=== PATIENT | male | born 1940 | race Caucasian/White ===

== ENCOUNTER → 2020-08-23 13:39 | Outpatient (BNVA) | payer MEDICARE, SELFPAY | PROVIDERS: PCP Family Medicine; Referring Provider Family Medicine; Visit Provider Internal Medicine | DX: Z45.018 Encounter for adjustment and management of other part of cardiac pacemaker (principal); I50.32 Chronic diastolic (congestive) heart failure; I11.0 Hypertensive heart disease with heart failure; I25.10 Atherosclerotic heart disease of native coronary artery without angina pectoris; Z95.3 Presence of xenogenic heart valve | CPT/HCPCS: 99212 ==

== ENCOUNTER 2020-10-25 09:29 | Outpatient (REF) | payer MEDICARE, SELFPAY ==
[2020-10-25 10:46] LABS: Alanine Aminotransferase 14 U/L (0-40); Anion Gap 11 (12-20); Blood Urea Nitrogen 20 mg/dL (9-16); Carbon Dioxide 28 mmol/L (22-29); Chloride 105 mmol/L (96-108); Estimated Glomerular Filt Rate > 60; Potassium 4.4 mmol/L (3.3-5.1); Sodium 140 mmol/L (135-145)
[2020-10-25 12:04] LABS: Aspartate Amino Transferase 18 U/L (5-37)
== END 2020-10-25 09:30 | disposition home or self-care (01) ==
LOC: HO.10HDL 09:29
PROVIDERS: Visit Provider Family Medicine
DX: I10 Essential (primary) hypertension (principal); E78.00 Pure hypercholesterolemia, unspecified; Z79.899 Other long term (current) drug therapy
CPT/HCPCS: 36415; 80051; 82550; 82565; 83735; 84450; 84460; 84520

== ENCOUNTER → 2021-02-15 10:11 | Outpatient (REF) | payer MEDICARE, SELFPAY ==
--- NOTE | 2021-02-15 10:14 | CA_ITS ---
Transthoracic Echocardiogram Patient (Last, First, Middle): Alfredito Mojica F Gender: Male Date of : 1940 Age: 80 Procedure Date: 02/15/2021 Procedure Type: Transthoracic Echocardiogram Location: OP Height: 180.34 cm Weight: 79.38 kg BSA: 1.99 m2 Heart Rate: bpm BP: 140 / 72 mmHg Locker Room Clerk: Referring MD: Colten Rasmussen MD Symptoms: Z95.3 - Presence of xenogenic heart valve Study Quality: Fair ECG Rhythm: Sinus/V paced Conclusions: - The left ventricular systolic function is low normal. The visually estimated ejection fraction is between 50-55%. - Evidence suggests grade II (moderate) diastolic dysfunction. - A bioprosthetic aortic valve is present. The prosthetic aortic valve appears to be functioning normally. Findings Left Ventricle Normal left ventricular cavity size. The left ventricular systolic function is low normal. The visually estimated ejection fraction is between 50-55%. There is no evidence of regional wall motion abnormalities. E/E prime ratio is >15, consistent with elevated filling pressures. Evidence suggests grade II (moderate) diastolic dysfunction. There is mild septal asymmetric hypertrophy. Right Ventricle Mildly increased right ventricular cavity size. There is normal right ventricular systolic function. Atria The left atrium is mildly dilated. The right atrium is normal in size. Aortic Valve A bioprosthetic aortic valve is present. The prosthetic aortic valve appears to be functioning normally. The mean gradient is 10 mmHg. The aortic valve area is 2.02 cm2. There is no aortic valve regurgitation. Mitral Valve There is mild mitral annular calcification. There is mild mitral valve regurgitation. There is no mitral valve stenosis. Pulmonic Valve The pulmonic valve was not well visualized. There is mild pulmonic valve regurgitation. Tricuspid Valve Normal tricuspid valve structure. There is mild tricuspid valve regurgitation. Top normal RVSP. Great Vessels The aortic annulus, sinuses of valsalva, and aortic arch are normal in size. Venous The inferior vena cava is normal in size and collapses greater than 50% with inspiration. Pericardium/Pleural There is no evidence of pericardial effusion. Prior Study Comparison Changes noted compared to prior study dated: 02/10/2020. Slight decrease in LVEF. Measurements 2D Linear Measurements RVIDd: 3.31 RVIDd Index: 1.66 IVSd: 1.21 0.6-0.9/0.6-1.0 cm LVIDd: 6.07 3.9-5.3/4.2-5.9 cm LVIDd Index: 3.05 2.4-3.2/2.2-3.1 cm/m2 LVIDs: 3.92 2.0-3.6 cm LVPWd: 0.82 0.7-1.1 cm Ao Root: 3.30 2.1-3.5 cm LA Diam: 4.60 2.7-3.8/3.0-4.0 cm LAIDs Index: 2.31 1.5-2.3 cm/m2 LV Mass: 320.31 67-162/88-224 g LV Mass Index: 160.96 43-95/49-115 g/m2 LVOT Diam: 2.30 3.0+(-)1.3 cm 2D Systolic Function EF 4C: 46.90 >55% EF 2C: 53.00 >55% Mitral Valve MV Pk E: 1.19 MV PK A: 1.24 MV Decel Time: 301.00 E/A: 1.00 E'Lateral: 7.83 E'Medial: 6.09 E/E' Med: 19.50 E/E' Lat: 15.20 MR Alias Aneesh: 0.35 MR RAD: 0.50 Aortic Valve AoV Pk Aneesh: 2.22 AoV Mn Aneesh: 1.43 AoV VTI: 0.55 AoV Pk Grad: 20.00 Aov Mn Grad: 10.00 JERALD Cont.VTI: 2.02 LVOT LVOT Pk Aneesh: 1.02 LVOT Mn Aneesh: 0.70 LVOT VTI: 0.27 LVOT Pk Grad: 4.00 LVOT Mn Grad: 2.00 LVOT Diam: 2.30 LVOT Area: 4.15 Diastolic Function MV Pk E: 1.19 MV Pk A: 1.24 E/A: 1.00 E'Medial: 6.09 E/E' Med: 19.50 E' Laterial: 7.83 E/E' Lat: 15.20 Tricuspid Valve TR Pk Aneesh: 2.81 TR Pk Grad: 32.00 RA Press: 3.00 RVSP: 35.00 Great Vessels Aorta Ao Root-2D: 3.30 2.0-3.7 cm Ao Asc: 3.20 2.1-3.4 cm Ao Arch: 3.20 Updated in Other Vendor System with Status of Final Colten Rasmussen MD electronically signed on 02/16/2021 10:52:14 AM with status of Final
== END ==
LOC: HO.CARD 10:11
PROVIDERS: PCP Family Medicine; Visit Provider Internal Medicine
DX: Z95.3 Presence of xenogenic heart valve (principal)
CPT/HCPCS: 93306

== ENCOUNTER → 2021-02-22 11:04 | Outpatient (BNVA) | payer MEDICARE, SELFPAY | PROVIDERS: PCP Family Medicine; Visit Provider Internal Medicine | DX: I11.0 Hypertensive heart disease with heart failure (principal); I50.32 Chronic diastolic (congestive) heart failure; I25.10 Atherosclerotic heart disease of native coronary artery without angina pectoris; Z95.3 Presence of xenogenic heart valve; Z95.0 Presence of cardiac pacemaker; Z79.899 Other long term (current) drug therapy | CPT/HCPCS: 93005 ==

== ENCOUNTER 2021-05-04 12:02 | Outpatient (REF) | payer MEDICARE, SELFPAY ==
[2021-05-04 15:12] LABS: Alanine Aminotransferase 15 U/L (0-40); Anion Gap 14 (12-20); Aspartate Amino Transferase 20 U/L (5-37); Blood Urea Nitrogen 23 mg/dL (9-16); Carbon Dioxide 23 mmol/L (22-29); Chloride 110 mmol/L (96-108); Estimated Glomerular Filt Rate > 60; Potassium 4.5 mmol/L (3.3-5.1); Sodium 142 mmol/L (135-145)
== END 2021-05-04 12:03 | disposition home or self-care (01) ==
LOC: HO.10HDL 12:02
PROVIDERS: Absent Provider Internal Medicine; Visit Provider Family Medicine
DX: I10 Essential (primary) hypertension (principal); E78.00 Pure hypercholesterolemia, unspecified; Z79.899 Other long term (current) drug therapy
CPT/HCPCS: 36415; 80051; 82550; 82565; 84450; 84460; 84520

== ENCOUNTER 2021-07-25 07:19 | Outpatient (REF) | payer MEDICARE, SELFPAY ==
--- NOTE | ~2021-07-25 | XR_ITS ---
EXAMINATION: XR KNEE STANDING, BILATERAL XR KNEE 2 VIEWS, LEFT CLINICAL INFORMATION: Left knee pain. COMPARISON: None TECHNIQUE: AP bilateral knee. Left knee lateral and sunrise view. FINDINGS: AP BILATERAL KNEE: There is loss of medial and lateral compartment joint space of right knee with periarticular spurring. There is severe loss of medial compartment joint space with periarticular spurring and mild hallux general barium deformity of left knee. No fracture or dislocation seen. There are bilateral soft tissue hyperdensities, question vascular calcifications. LEFT KNEE: There is severe loss of patellofemoral compartment joint space in left knee with [id number] suprapatellar joint effusion. There is no visible acute fracture, dislocation or lytic process seen. No abnormal joint effusion seen. XR/XR knee LT 2V IMPRESSION: 1. Severe degenerative arthritic changes medial compartment and moderate arthritic changes in the patellofemoral compartment of left knee with moderate suprapatellar joint effusion. There is genu varus deformity of left knee. 2. Moderate degenerative changes medial and lateral compartment of right knee. 3. There is diffuse osteopenia with scattered bilateral soft tissue hyperdensity, question calcifications.
--- NOTE | ~2021-07-25 | XR_ITS ---
EXAMINATION: XR KNEE STANDING, BILATERAL XR KNEE 2 VIEWS, LEFT CLINICAL INFORMATION: Left knee pain. COMPARISON: None TECHNIQUE: AP bilateral knee. Left knee lateral and sunrise view. FINDINGS: AP BILATERAL KNEE: There is loss of medial and lateral compartment joint space of right knee with periarticular spurring. There is severe loss of medial compartment joint space with periarticular spurring and mild hallux general barium deformity of left knee. No fracture or dislocation seen. There are bilateral soft tissue hyperdensities, question vascular calcifications. LEFT KNEE: There is severe loss of patellofemoral compartment joint space in left knee with [id number] suprapatellar joint effusion. There is no visible acute fracture, dislocation or lytic process seen. No abnormal joint effusion seen. XR/XR knee standing BI IMPRESSION: 1. Severe degenerative arthritic changes medial compartment and moderate arthritic changes in the patellofemoral compartment of left knee with moderate suprapatellar joint effusion. There is genu varus deformity of left knee. 2. Moderate degenerative changes medial and lateral compartment of right knee. 3. There is diffuse osteopenia with scattered bilateral soft tissue hyperdensity, question calcifications.
== END 2021-07-25 07:20 | disposition home or self-care (01) ==
LOC: HO.HOSX 07:19
PROVIDERS: Visit Provider Physician Assistant
DX: M17.0 Bilateral primary osteoarthritis of knee (principal)
CPT/HCPCS: 20610; 73560; 73565; 99202; J1040

== ENCOUNTER → 2021-08-22 13:12 | Outpatient (BNVA) | payer MEDICARE, SELFPAY | PROVIDERS: PCP Family Medicine; Visit Provider Internal Medicine | DX: Z45.018 Encounter for adjustment and management of other part of cardiac pacemaker (principal); I11.0 Hypertensive heart disease with heart failure; I50.32 Chronic diastolic (congestive) heart failure; I25.10 Atherosclerotic heart disease of native coronary artery without angina pectoris; Z95.3 Presence of xenogenic heart valve | CPT/HCPCS: 99212 ==

== ENCOUNTER → 2021-10-21 09:32 | Outpatient (BNVA) | payer MEDICARE, SELFPAY | PROVIDERS: PCP Family Medicine; Visit Provider Physician Assistant | DX: M17.0 Bilateral primary osteoarthritis of knee (principal) | CPT/HCPCS: 20610; 99212; J1040 ==

== ENCOUNTER 2021-11-09 08:17 | Outpatient (REF) | payer MEDICARE, SELFPAY ==
[2021-11-09 10:54] LABS: Estimated Average Glucose 117 mg/dL; Hemoglobin A1c % 5.7 %
[2021-11-09 10:56] LABS: Alanine Aminotransferase 17 U/L (0-40); Blood Urea Nitrogen 24 mg/dL (9-16); Cholesterol 155 mg/dL; Estimated Glomerular Filt Rate > 60; Glucose Fasting 121 mg/dL (60-99); Triglycerides 55 mg/dL
[2021-11-09 11:09] LABS: Anion Gap 10 (12-20); Carbon Dioxide 27 mmol/L (22-29); Chloride 109 mmol/L (96-108); HDL Cholesterol 51 mg/dL; LDL Cholesterol Calculated 93 mg/dl; Potassium 4.8 mmol/L (3.3-5.1); Sodium 141 mmol/L (135-145)
== END 2021-11-09 08:18 | disposition home or self-care (01) ==
LOC: HO.10HDL 08:17
PROVIDERS: Visit Provider Family Medicine
DX: I10 Essential (primary) hypertension (principal); E78.00 Pure hypercholesterolemia, unspecified; E11.9 Type 2 diabetes mellitus without complications; Z79.899 Other long term (current) drug therapy
CPT/HCPCS: 36415; 80051; 80061; 82550; 82565; 82947; 83036; 84460; 84520

== ENCOUNTER → 2022-02-06 09:15 | Outpatient (REF) | payer MEDICARE, SELFPAY ==
--- NOTE | 2022-02-06 09:18 | CA_ITS ---
Transthoracic Echocardiogram Patient (Last, First, Middle): Alfredito Mojica F Gender: Male Date of : 1940 Age: 81 Procedure Date: 02/06/2022 Procedure Type: Transthoracic Echocardiogram Location: OP Height: 180.34 cm Weight: 82.56 kg BSA: 2.03 m2 Heart Rate: 61 bpm BP: 129 / 65 mmHg Painter Helper Sign: SB Referring MD: Colten Rasmussen MD Symptoms: Z95.3 - Presence of xenogenic heart valve Study Quality: Adequate ECG Rhythm: Paced Conclusions: - The left ventricular systolic function is normal. The visually estimated ejection fraction is between 55-60%. - Evidence suggests grade II (moderate) diastolic dysfunction. - A bioprosthetic aortic valve is present. The prosthetic aortic valve appears to be functioning normally. Findings Left Ventricle Normal left ventricular cavity size. The left ventricular systolic function is normal. The visually estimated ejection fraction is between 55-60%. E/E prime ratio is >15, consistent with elevated filling pressures. Evidence suggests grade II (moderate) diastolic dysfunction. There is mild septal asymmetric hypertrophy. Right Ventricle Mildly increased right ventricular cavity size. There is normal right ventricular systolic function. Atria Both atria are normal in size. Aortic Valve A bioprosthetic aortic valve is present. The prosthetic aortic valve appears to be functioning normally. The aortic valve was not well visualized. The mean gradient is 15 mmHg. There is no aortic valve regurgitation. Acceleration time 81-88ms. Mitral Valve There is mild mitral annular calcification. There is trace mitral valve regurgitation. There is no mitral valve stenosis. Pulmonic Valve The pulmonic valve is likely normal. Tricuspid Valve There is mild tricuspid valve regurgitation. The pulmonary artery systolic pressure is normal. Great Vessels The asc aorta is normal in size. Venous The inferior vena cava was not well visualized. Pericardium/Pleural There is no evidence of pericardial effusion. Prior Study Comparison No significant change compared to prior study dated: 02/15/2021. Measurements 2D Linear Measurements IVSd: 1.31 0.6-0.9/0.6-1.0 cm LVIDd: 4.92 3.9-5.3/4.2-5.9 cm LVIDd Index: 2.42 2.4-3.2/2.2-3.1 cm/m2 LVIDs: 3.78 2.0-3.6 cm LVPWd: 0.95 0.7-1.1 cm LA Diam: 3.80 2.7-3.8/3.0-4.0 cm LAIDs Index: 1.87 1.5-2.3 cm/m2 LV Mass: 261.74 67-162/88-224 g LV Mass Index: 128.93 43-95/49-115 g/m2 LVOT Diam: 2.60 3.0+(-)1.3 cm 2D Systolic Function EF 4C: 46.00 >55% EF 2C: 66.80 >55% EF BiP: 60.80 >55% Mitral Valve MV Pk E: 1.10 MV PK A: 1.17 MV Decel Time: 260.00 E/A: 0.90 E'Lateral: 6.74 E'Medial: 4.90 E/E' Med: 22.40 E/E' Lat: 16.30 PHT: 76.00 MVA PHT: 2.89 Decel [place]: 4.22 Aortic Valve AoV Pk Aneesh: 2.59 AoV Mn Aneesh: 1.81 AoV VTI: 0.56 AoV Pk Grad: 27.00 Aov Mn Grad: 15.00 JERALD Cont.VTI: 2.15 LVOT LVOT Pk Aneesh: 0.95 LVOT Mn Aneesh: 0.68 LVOT VTI: 0.23 LVOT Pk Grad: 4.00 LVOT Mn Grad: 2.00 LVOT Diam: 2.60 LVOT Area: 5.31 Diastolic Function MV Pk E: 1.10 MV Pk A: 1.17 E/A: 0.90 E'Medial: 4.90 E/E' Med: 22.40 E' Laterial: 6.74 E/E' Lat: 16.30 Right Ventricle TAPSE (mm): 25.40 TVS' Aneesh: 12.30 Tricuspid Valve TR Pk Aneesh: 2.50 TR Pk Grad: 25.00 RA Press: 3.00 RVSP: 28.00 Great Vessels Aorta Ao Asc: 3.30 2.1-3.4 cm Pulmonary Valve PV Pk Aneesh: 1.08 Peak PV Grad: 5.00 Updated in Other Vendor System with Status of Final Colten Rasmussen MD electronically signed on 02/06/2022 11:36:43 AM with status of Final
== END ==
LOC: HO.CARD 09:15
PROVIDERS: PCP Family Medicine; Visit Provider Internal Medicine
DX: Z95.3 Presence of xenogenic heart valve (principal)
CPT/HCPCS: 93306

== ENCOUNTER → 2022-03-14 13:28 | Outpatient (BNVA) | payer MEDICARE, SELFPAY | PROVIDERS: PCP Family Medicine; Visit Provider Physician Assistant | DX: M17.0 Bilateral primary osteoarthritis of knee (principal) | CPT/HCPCS: 20610; 99212; J1040 ==

== ENCOUNTER 2022-04-11 12:04 | Outpatient (REF) | payer MEDICARE, SELFPAY ==
[2022-04-11 13:16] LABS: Anion Gap 14 (12-20); Blood Urea Nitrogen 23 mg/dL (9-16); Carbon Dioxide 27 mmol/L (22-29); Chloride 107 mmol/L (96-108); Estimated Glomerular Filt Rate > 60; Magnesium 2.1 mg/dL (1.6-2.6); Potassium 4.4 mmol/L (3.3-5.1); Sodium 144 mmol/L (135-145)
== END 2022-04-11 12:05 | disposition home or self-care (01) ==
LOC: HO.LAB 12:04
PROVIDERS: PCP Family Medicine; Visit Provider Family Medicine
DX: I10 Essential (primary) hypertension (principal); Z79.899 Other long term (current) drug therapy
CPT/HCPCS: 36415; 80051; 82565; 83735; 84520

== ENCOUNTER → 2022-04-18 12:10 | Outpatient (BNVA) | payer MEDICARE, SELFPAY | PROVIDERS: PCP Family Medicine; Referring Provider Family Medicine; Visit Provider Internal Medicine | DX: I11.0 Hypertensive heart disease with heart failure (principal); I50.32 Chronic diastolic (congestive) heart failure; I25.10 Atherosclerotic heart disease of native coronary artery without angina pectoris; Z95.3 Presence of xenogenic heart valve; Z95.0 Presence of cardiac pacemaker; Z79.82 Long term (current) use of aspirin; Z79.899 Other long term (current) drug therapy | CPT/HCPCS: 93005; 99212 ==

== ENCOUNTER 2022-05-24 08:40 | Outpatient (REF) | payer MEDICARE, SELFPAY ==
[2022-05-24 10:30] LABS: MANUAL DIFF FLAG NO
[2022-05-24 10:37] LABS: Basophils Percent Auto 0.4 % (0-2); Eosinophils Absolute Auto 0.3 X10*3/uL (0.0-0.4); Eosinophils Percent Auto 3.7 % (0-4); Hematocrit 36.1 % (42.0-52.0); Imm Gran Abs Auto 0.02 X10*3/uL (0.00-0.03); Imm Gran Pct Auto 0.3 % (0.0-0.4); Lymphocytes Percent Auto 14.2 % (20-40); Mean Corpuscular HGB Conc 33.2 g/dl (31.0-36.0); Mean Corpuscular Hemoglobin 30.4 pg (27.0-33.0); Mean Corpuscular Volume 91.4 fL (80.0-98.0); Mean Platelet Volume 10.8 fL (9.4-12.4); Monocytes Absolute Auto 0.6 X10*3/uL (0.1-1.2); Monocytes Percent Auto 8.6 % (2-11); Neutrophils Absolute Auto 5.3 x10*3/uL (2.0-8.3); Neutrophils Percent Auto 72.8 % (45-73); Platelet Count 170 X10*3/uL (160-400); Red Blood Count 3.95 X10*6/uL (4.60-5.80); Red Cell Distribution Width 13.8 % (11.0-16.0); White Blood Count 7.2 X10*3/uL (4.8-10.8)
== END 2022-05-24 08:41 | disposition home or self-care (01) ==
LOC: HO.10HDL 08:40
PROVIDERS: Visit Provider Family Medicine
DX: R10.32 Left lower quadrant pain (principal)
CPT/HCPCS: 36415; 82378; 85025

== ENCOUNTER 2022-05-26 11:00 | Outpatient (RCR) | payer MEDICARE, SELFPAY ==
--- NOTE | 2022-04-04 14:15 | MHC.PT.EP ---
[facility] [place] Office [place] Office [place] Office [address] Jan[address] [phone] F: [phone] F: [phone] F: [phone] F: [phone] Physical Therapy Plan of Care Date of Evaluation: Date of Surgery: N/A Diagnosis: Bilateral primary osteoarthritis of knee Assessment: Pt is a pleasant and motivated 81yo M who presents to PT with pain in B knees, L>R. Xrays revealed arthritis bilaterally. He presents to PT with current impairments in pain, decreased ROM L>R, decreased knee/hip strength, soft tissue restrictions, genu varum L LE, decreased balance and impaired gait. He is limited functionally by stair navigation, prolonged standing, walking on uneven surfaces, and kneeling. His goal is to return to walking a mile and stair navigation with minimal to no pain. He is a good candidate for skilled PT in order to address current impairments to facilitate return to PLOF. He will be seen 2x/week for 4 weeks and will be reassessed at that time. Frequency and Duration: The patient will be seen 2x/week for 4 weeks Short Term Goals: Pt will be I with HEP to promote self management of symptoms Pt will improve L knee flexion by at least 5 degrees Intermediate Goals: Pt will demonstrate full ROM and strength throughout B knees Pt will tolerate ambulation on even and uneven surfaces >45 min with minimal to no pain to assist with recreational activities Pt will demonstrate improvements in function as evidenced by statistically significant improvement in LEFI outcome measure Treatment Plan: Modalities to reduce pain, spasms and effusion. Manual therapy to restore motion and function. Therapeutic exercise to improve strength and flexibility. Neuromuscular re-education for posture and balance. Therapeutic activities to return to functional activities of daily living. Electronically signed by: Lachelle Patton, PT, DPT Please sign and return to therapist. Thank you for your referral.
--- NOTE | 2022-05-26 13:54 | MHC.PT.DC ---
[facility] [place] Office [place] Office [place] Office [address] Yanna Camacho [address] [phone] F: [phone] F: [phone] F: [phone] F: [phone] Physical Therapy Discharge Report Diagnosis: Bilateral primary osteoarthritis of knee Date of Surgery: N/A Date of Evaluation: 04/04/22 Date of Discharge: 05/26/22 Treatments to Date: 5 Cancellations to Date: 3 No Shows to Date: 1 Discharge Status: Improved Function Independent with HEP Patient Elected to Stop Discharge Summary: Pt was seen for PT from 04/04/22-05/26/22. He has attended 5 PT sessions. Pt reports he has been staying active and feeling great. He reports pain has been minimal and he has been compliant with HEP. Pt has requested to be D/C from PT at this time. Reviewed HEP, stair navigation, and the difference between knee braces and to use them only with strenuous or sporting activities. Pt is being D/C from skilled PT at this time per his request. Electronically signed by: Lachelle Patton, PT, DPT. Please sign and return to therapist. Thank you for your referral.
== END 2022-05-26 13:53 | disposition home or self-care (01) ==
LOC: HO.PT 11:00
PROVIDERS: PCP Family Medicine; Visit Provider Physician Assistant
DX: M17.0 Bilateral primary osteoarthritis of knee (principal)
CPT/HCPCS: 97110; 97112; 97161

== ENCOUNTER 2022-05-31 10:52 | Outpatient (REF) | payer MEDICARE, SELFPAY ==
--- NOTE | ~2022-05-31 | CT_ITS ---
EXAMINATION: CT ABDOMEN AND PELVIS WITHOUT CONTRAST CLINICAL INFORMATION: Abdominal pain COMPARISON: Previous CT of the abdomen and pelvis February 2018 TECHNIQUE: Multidetector volumetric imaging was performed from the superior aspect of the liver through the pubic symphysis. Sagittal and coronal reformatted images were obtained on the technologist's workstation. This CT examination was performed using dose optimization techniques as appropriate, variously including the following: *Automated exposure control *Adjustment of mA and/or kV according to patient size (this includes techniques or standardized protocols for targeted exams where dose is matched to indication/reason for exam; i.e. extremities or head) *Use of iterative reconstruction technique DLP: 508 mGy-cm FINDINGS: LUNG BASES: The visualized lung bases are clear. There is a pacemaker lead, aortic valve stent graft and coronary artery calcification. LIVER, GALLBLADDER, AND BILIARY TREE: The liver is normal in size, shape, and attenuation. No focal hepatic lesion or biliary ductal dilatation is present. The gallbladder is unremarkable with no evidence of radiopaque gallstones, gallbladder wall thickening, or obvious pericholecystic inflammatory changes. PANCREAS: Unremarkable. SPLEEN: Unremarkable. ADRENAL GLANDS: Unremarkable. KIDNEYS AND URETERS: The kidneys are normal in size, shape, and attenuation. No hydronephrosis, hydroureter, or calculi seen. No perinephric stranding. BLADDER: Not optimally distended and not well evaluated. GASTROINTESTINAL TRACT: Severe diverticulosis of the colon. No evidence of diverticulitis. Small and large bowel are otherwise normal. Normal appendix. Normal stomach. ABDOMINAL WALL: Small bilateral inguinal hernias containing fat. LYMPH NODES: Prominent bilateral inguinal lymph nodes. These are similar to previous exam. There are postsurgical changes in the right inguinal region. VASCULAR: Right groin pseudoaneurysm not appreciated. Normal caliber thoracic aorta. Mild atherosclerotic disease. PELVIC VISCERA: Unremarkable. OSSEOUS STRUCTURES: There are degenerative changes of the spine and hip joints. CT/CT abdomen pelvis wo IV con IMPRESSION: Severe diverticular disease of the colon. No evidence of acute diverticulitis. Fleischner guidelines were followed.
== END 2022-05-31 10:53 | disposition home or self-care (01) ==
LOC: HO.CT 10:52
PROVIDERS: PCP Family Medicine; Visit Provider Family Medicine
DX: R10.32 Left lower quadrant pain (principal)
CPT/HCPCS: 74176

== ENCOUNTER → 2022-06-19 13:39 | Outpatient (BNVA) | payer MEDICARE, SELFPAY | PROVIDERS: PCP Family Medicine; Visit Provider Physician Assistant | DX: M17.0 Bilateral primary osteoarthritis of knee (principal) | CPT/HCPCS: 20610; 99212; J1040 ==

== ENCOUNTER → 2022-06-21 10:21 | Outpatient (REF) | payer MEDICARE, SELFPAY ==
--- NOTE | 2022-06-21 10:28 | ECG_ITS ---
Test Reason : sss-pacemaker Blood Pressure : / mmHG Vent. Rate : 061 BPM Atrial Rate : 061 BPM P-R Int : 292 ms QRS Dur : 134 ms QT Int : 450 ms P-R-T Axes : 050 -61 096 degrees QTc Int : 453 ms Sinus rhythm with sinus arrhythmia with 1st degree A-V block with occasional ventricular-paced complexes and Fusion complexes Left axis deviation Right bundle branch block Left ventricular hypertrophy with repolarization abnormality ( R in aVL ) Abnormal ECG When compared with ECG of 13-SEP-2019 13:28, Electronic ventricular pacemaker has replaced Sinus rhythm Referred By: Fred Chowdary Electronically Signed By:TEA DUKE MD
== END ==
LOC: HO.CARD 10:21
PROVIDERS: PCP Family Medicine; Visit Provider Family Medicine
DX: Z95.0 Presence of cardiac pacemaker (principal)
CPT/HCPCS: 93005

== ENCOUNTER 2022-10-09 07:46 | Outpatient (REF) | payer MEDICARE, SELFPAY ==
[2022-10-09 10:58] LABS: Anion Gap 8 (12-20); Blood Urea Nitrogen 21 mg/dL (9-16); Carbon Dioxide 27 mmol/L (22-29); Chloride 110 mmol/L (96-108); Estimated Glomerular Filt Rate > 60; Potassium 4.3 mmol/L (3.3-5.1); Sodium 141 mmol/L (135-145)
== END 2022-10-09 07:47 | disposition home or self-care (01) ==
LOC: HO.10HDL 07:46
PROVIDERS: Absent Provider Internal Medicine; Visit Provider Family Medicine
DX: I10 Essential (primary) hypertension (principal)
CPT/HCPCS: 36415; 80051; 82565; 84520

== ENCOUNTER → 2022-10-23 12:02 | Outpatient (BNVA) | payer MEDICARE, SELFPAY | PROVIDERS: PCP Family Medicine; Referring Provider Family Medicine; Visit Provider Internal Medicine | DX: I11.0 Hypertensive heart disease with heart failure (principal); I50.32 Chronic diastolic (congestive) heart failure; I25.10 Atherosclerotic heart disease of native coronary artery without angina pectoris; Z45.018 Encounter for adjustment and management of other part of cardiac pacemaker; Z95.3 Presence of xenogenic heart valve; Z79.82 Long term (current) use of aspirin; Z79.899 Other long term (current) drug therapy | CPT/HCPCS: 93280; 99212 ==

== ENCOUNTER → 2023-01-22 08:18 | Outpatient (BNVA) | payer MEDICARE, SELFPAY | PROVIDERS: PCP Family Medicine; Visit Provider Orthopaedic Surgery | DX: M17.0 Bilateral primary osteoarthritis of knee (principal); I50.32 Chronic diastolic (congestive) heart failure; I25.10 Atherosclerotic heart disease of native coronary artery without angina pectoris | CPT/HCPCS: 99212 ==

== ENCOUNTER → 2023-02-11 23:59 | Outpatient (BNV) | payer MEDICARE, SELFPAY ==
--- NOTE | 2023-02-21 14:19 | A.OFFVIS_ITS ---
Intake Intake Visit Reasons: Remote Device Check- [employer] Allergies Penicillins [PENICILLINS] Adverse Reaction (Unknown, Verified 01/22/23 08:28) GI UPSET/N/V PFSH Medical History Atherosclerotic cardiovascular disease Chronic heart failure with preserved ejection fraction Essential hypertension Normally functioning cardiac pacemaker present Pseudoaneurysm Surgical History History of cardiac catheterization (~01/30/18) History of permanent cardiac pacemaker placement (~02/2019) Status post transcatheter aortic valve replacement (TAVR) using bioprosthesis (~02/2019) Family History Father CVD (cardiovascular disease) Mother No problems noted. 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 Overall normal device function. [id number] Cardiac Device Interrogation, pacemaker Procedure code (CPT) selection complete Assessment & Plan Assessment & Plan (1) Chronic heart failure with preserved ejection fraction: Code(s): I50.32 - Chronic diastolic (congestive) heart failure (2) Status post transcatheter aortic valve replacement (TAVR) using bioprosthesis: Onset Date: ~02/2019 Code(s): Z95.3 - Presence of xenogenic heart valve (3) Encounter for interrogation of cardiac pacemaker: Code(s): Z45.018 - Encounter for adjustment and management of other part of cardiac pacemaker Coding Level of Care Code Procedure Only Diagnoses Chronic heart failure with preserved ejection fraction I50.32 Status post transcatheter aortic valve replacement (TAVR) using bioprosthesis Z95.3 Encounter for interrogation of cardiac pacemaker Z45.018 CPT Codes Cardiac Device Check - Cardiac Device 12: [id number] Cardiac Device Interrogation, pacemaker ([id number])
== END ==
PROVIDERS: PCP Family Medicine; Visit Provider Internal Medicine
DX: I48.20 Chronic atrial fibrillation, unspecified (principal); Z95.0 Presence of cardiac pacemaker
CPT/HCPCS: 93294

== ENCOUNTER 2023-02-20 08:20 | Outpatient (REF) | payer MEDICARE, SELFPAY ==
[2023-02-20 08:46] LABS: MANUAL DIFF FLAG NO
[2023-02-20 09:15] LABS: Basophils Percent Auto 0.4 % (0-2); Eosinophils Absolute Auto 0.2 X10*3/uL (0.0-0.4); Eosinophils Percent Auto 2.4 % (0-4); Hematocrit 38.1 % (42.0-52.0); Hemoglobin 12.9 g/dl (14.0-18.0); Imm Gran Abs Auto 0.03 X10*3/uL (0.00-0.03); Imm Gran Pct Auto 0.4 % (0.0-0.4); Lymphocytes Absolute Auto 1.2 X10*3/uL (1.2-4.9); Lymphocytes Percent Auto 16.7 % (20-40); Mean Corpuscular HGB Conc 33.9 g/dl (31.0-36.0); Mean Corpuscular Hemoglobin 30.1 pg (27.0-33.0); Mean Platelet Volume 10.8 fL (9.4-12.4); Monocytes Absolute Auto 0.6 X10*3/uL (0.1-1.2); Monocytes Percent Auto 8.3 % (2-11); Neutrophils Absolute Auto 5.3 x10*3/uL (2.0-8.3); Neutrophils Percent Auto 71.8 % (45-73); Platelet Count 164 X10*3/uL (160-400); Red Blood Count 4.28 X10*6/uL (4.60-5.80); Red Cell Distribution Width 13.2 % (11.0-16.0); White Blood Count 7.4 X10*3/uL (4.8-10.8)
[2023-02-20 09:56] LABS: Alanine Aminotransferase 12 U/L (0-40); Anion Gap 13 (12-20); Aspartate Amino Transferase 16 U/L (5-37); Carbon Dioxide 24 mmol/L (22-29); Chloride 109 mmol/L (96-108); Estimated Glomerular Filt Rate > 60; Magnesium 2.1 mg/dL (1.6-2.6); Potassium 4.6 mmol/L (3.3-5.1); Sodium 141 mmol/L (135-145)
== END 2023-02-20 08:21 | disposition home or self-care (01) ==
LOC: HO.LAB 08:20
PROVIDERS: PCP Family Medicine; Visit Provider Family Medicine
DX: I11.0 Hypertensive heart disease with heart failure (principal); I50.9 Heart failure, unspecified; R42 Dizziness and giddiness; E78.00 Pure hypercholesterolemia, unspecified; Z79.899 Other long term (current) drug therapy
CPT/HCPCS: 36415; 80051; 82550; 82565; 83735; 84450; 84460; 85025

== ENCOUNTER → 2023-03-20 08:48 | Outpatient (BNVA) | payer MEDICARE, SELFPAY | PROVIDERS: PCP Family Medicine; Visit Provider Orthopaedic Surgery ==

== ENCOUNTER 2023-03-20 09:51 | Outpatient (REF) | payer MEDICARE, SELFPAY ==
[2023-03-20 11:03] LABS: MANUAL DIFF FLAG NO
[2023-03-20 11:07] LABS: Basophils Percent Auto 0.4 % (0-2); Eosinophils Absolute Auto 0.2 X10*3/uL (0.0-0.4); Eosinophils Percent Auto 2.7 % (0-4); Hematocrit 38.7 % (42.0-52.0); Imm Gran Abs Auto 0.03 X10*3/uL (0.00-0.03); Imm Gran Pct Auto 0.4 % (0.0-0.4); Lymphocytes Absolute Auto 1.4 X10*3/uL (1.2-4.9); Lymphocytes Percent Auto 16.5 % (20-40); Mean Corpuscular HGB Conc 33.6 g/dl (31.0-36.0); Mean Corpuscular Volume 89.2 fL (80.0-98.0); Mean Platelet Volume 10.7 fL (9.4-12.4); Monocytes Absolute Auto 0.8 X10*3/uL (0.1-1.2); Monocytes Percent Auto 9.5 % (2-11); Neutrophils Absolute Auto 5.9 x10*3/uL (2.0-8.3); Neutrophils Percent Auto 70.5 % (45-73); Platelet Count 161 X10*3/uL (160-400); Red Blood Count 4.34 X10*6/uL (4.60-5.80); Red Cell Distribution Width 13.2 % (11.0-16.0); White Blood Count 8.4 X10*3/uL (4.8-10.8)
[2023-03-20 12:00] LABS: Anion Gap 11 (12-20); Blood Urea Nitrogen 22 mg/dL (9-16); Calcium 9.5 mg/dL (8.4-10.2); Carbon Dioxide 26 mmol/L (22-29); Chloride 109 mmol/L (96-108); Estimated Glomerular Filt Rate > 60; Glucose Random 112 mg/dL (60-115); Potassium 4.9 mmol/L (3.3-5.1); Sodium 141 mmol/L (135-145)
== END 2023-03-20 09:52 | disposition home or self-care (01) ==
LOC: HO.10HDL 09:51
PROVIDERS: Visit Provider Orthopaedic Surgery
DX: Z01.812 Encounter for preprocedural laboratory examination (principal); Z20.2 Contact with and (suspected) exposure to infections with a predominantly sexual mode of transmission
CPT/HCPCS: 36415; 80048; 85025

== ENCOUNTER 2023-03-28 10:44 | Outpatient (RCR) | payer MEDICARE, SELFPAY ==
--- NOTE | 2023-03-28 11:54 | MHC.PT.EP ---
[facility] [place] Office [place] Office [place] Office [address] Yanna Camacho [address] [facility] [phone] F: [phone] F: [phone] F: [phone] F: [phone] Physical Therapy Plan of Care Date of Evaluation: Date of Surgery: 04/14/23 Diagnosis: prehab L TKA (RL) Assessment: pt is a 82 y/o female presenting to physical therapy w/ referring diagnosis of prehab L TKA. Impairments include pain, decreased range of motion, decreased strength, impaired functional mobility, impaired postural awareness, and altered ambulation mechanics. pt is a good candidate for skilled PT due to age, potential remediation of impairments, typical disease/condition progression and prognosis, comorbidities, and motivation. pt would benefit from skilled PT intervention to provide a tailored strengthening and stretching exercise program, functional training, gait training, postural re-training, neuromuscular re-education, modalities as needed for pain, equipment safety demonstration. Frequency and Duration: The patient will be seen no follow-ups indicated Short Term Goals: GOALS MET Senior Living Goals: Treatment Plan: Modalities to reduce pain, spasms and effusion. Manual therapy to restore motion and function. Therapeutic exercise to improve strength and flexibility. Neuromuscular re-education for posture and balance. Therapeutic activities to return to functional activities of daily living. Electronically signed by: Kianna Santana PT, DPT Please sign and return to therapist. Thank you for your referral.
--- NOTE | 2023-03-28 13:43 | MHC.PT.DC ---
[facility] [place] Office [place] Office [place] Office [address] Yanna Camacho [address] [phone] F: [phone] F: [phone] F: [phone] F: [phone] Physical Therapy Discharge Report Diagnosis: prehab L TKA (RL) Date of Surgery: 04/14/23 Date of Evaluation: 03/28/23 Date of Discharge: 03/28/23 Treatments to Date: 1 Cancellations to Date: 0 No Shows to Date: 0 Discharge Status: Achieved Goals Independent with HEP Discharge Summary: The patient was educated in physical therapy expectations during his hospital stay, once discharged home, and once he is ready for outpatient therapy. He was educated in using a walker using step-to and step-through patterns, proper stair navigation, and avoiding any objects behind the knee unless specified by a therapist. He was taken through the exact TKA protocol given during admission and had no difficulties performing. Given his exceptional performance of all activities practiced/reviewed today he does not need any PT additional follow-up until after his surgery. He is discharged. Electronically signed by: Kianna Santana PT, DPT Please sign and return to therapist. Thank you for your referral.
== END 2023-03-28 13:43 | disposition home or self-care (01) ==
LOC: HO.PT 10:44
PROVIDERS: PCP Family Medicine; Visit Provider Orthopaedic Surgery
DX: M17.0 Bilateral primary osteoarthritis of knee (principal)
CPT/HCPCS: 97110; 97116; 97162

== ENCOUNTER 2023-04-02 13:21 | Outpatient (AMB) | payer MEDICARE, SELFPAY ==
--- NOTE | 2023-04-02 13:23 | A.OFFVIS_ITS ---
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: No Accompanied by: Spouse Allergies Penicillins [PENICILLINS] Adverse Reaction (Unknown, Verified 04/02/23 13:33) GI UPSET/N/V Medication List - Last Reconciled 04/02/23 by Colten Rasmussen MD amlodipine 10 mg (2 x 5 mg) PO DAILY aspirin 81 mg PO DAILY atorvastatin 10 mg PO DAILY carvedilol 25 mg PO BID clindamycin HCl 600 mg PO doxazosin 4 mg PO BEDTIME furosemide 20 mg PO DAILY lisinopril 20 mg PO BID meloxicam 15 mg PO DAILY multivitamin 1 tab PO DAILY trazodone 25 mg PO BEDTIME PRN walker Folding Front wheeled walker HPI HPI Comments History of Present Illness Details Alfredito returns for follow-up. He has a history of transcatheter aortic valve replacement in the past. Also has hypertension and chronic diastolic heart failure. Permanent pacemaker in place. From the cardiac standpoint, no issues. He states he feels fine. No angina or shortness of breath or in fact anything cardiac sounding. He needs to go for knee surgery and hence needs preoperative evaluation. Otherwise, only concern is that he has some swelling/redness/discomfort in the right cubital fossa area. Not clear what happened. Possible cellulitis. [facility] Medical History Atherosclerotic cardiovascular disease Chronic heart failure with preserved ejection fraction Essential hypertension Normally functioning cardiac pacemaker present Pseudoaneurysm Surgical History History of cardiac catheterization (~01/30/18) History of permanent cardiac pacemaker placement (~02/2019) Status post transcatheter aortic valve replacement (TAVR) using bioprosthesis (~02/2019) Family History Father CVD (cardiovascular disease) Mother No problems noted. Social History Patient Tobacco Use Status: Never used Tobacco Current occupational status: retired Current occupation: rt handed Review of Systems Const Denies weakness ENT Denies dizziness Card Denies chest pain, Denies chest pain with activity, Denies syncope, Denies rapid heart rate, Denies pedal edema, Denies edema, Denies leg edema, Denies lightheadedness, Denies palpitations, Denies dyspnea, Denies dyspnea on exertion and Denies orthopnea Resp Denies cough, Denies dyspnea and Denies dyspnea on exertion GI Denies hematochezia and Denies change in stool character Musc Denies abnormal gait, Denies muscle cramps, Denies muscle weakness, Denies numbness, Denies radiating pain into limb and Denies tingling Neuro Denies abnormal gait, Denies dizziness, Denies syncope, Denies numbness, Denies tingling and Denies weakness Endo Denies palpitations Physical Exam Vital Signs: Last Vital Signs Pulse 56 04/02/23 13:24 BP 138/76 04/02/23 13:24 BMI result Body Mass Index 25.3 Const General: comfortable and no acute distress Orientation/consciousness: patient oriented x3 HEENT Other: Unremarkable Head: Yes normal to inspection Neck Neck: Yes normal visual inspection Chest Chest palpation & inspection: normal inspection of the chest Resp Auscultation: clear to auscultation bilaterally Cardio Palpation: normal PMI Heart sounds: S1 normal heart sound present, S2 normal heart sound present, no gallops, Murmur heart sound present systolic II/ and at the right sternal border and no rubs GI Palpation (GI): Soft to palpation Back/Spine/Pelvis Other: unremarkable Skin General skin exam: no rashes or lesions noted Neuro General: patient oriented x3 Extrem General: Yes normal to inspection Psych Mental Status: mental status grossly normal Office Procedures EKG Details: EKG shows atrial sensed, ventricular paced rhythm at 56/Min. [id number], Complete Assessment & Plan Assessment & Plan (1) Preoperative cardiovascular examination: Code(s): Z01.810 - Encounter for preprocedural cardiovascular examination Plan: Intermediate cardiac risk for knee surgery. May proceed from cardiac. However, the right cubital fossa with possible cellulitis will need to be evaluated by orthopedics. Message directly sent to orthopedic surgeon/Ginger Ring. He may need antibiotics if deemed appropriate. (2) Status post transcatheter aortic valve replacement (TAVR) using bioprosthesis: Onset Date: ~02/2019 Code(s): Z95.3 - Presence of xenogenic heart valve Plan: He remains on baby aspirin. Echocardiogram from last year with normally functioning TAVR valve. Infective endocarditis prophylaxis as needed. (3) Chronic heart failure with preserved ejection fraction: Code(s): I50.32 - Chronic diastolic (congestive) heart failure Plan: Remains on low-dose diuretics. (4) Atherosclerotic cardiovascular disease: Code(s): I25.10 - Atherosclerotic heart disease of [place] coronary artery without angina pectoris Plan: Cardiac catheterization data reviewed. He had mild disease diffusely. No hemodynamically significant lesions. Continue aspirin and statins. (5) Essential hypertension: Code(s): I10 - Essential (primary) hypertension Plan: Home diary reviewed and seems fairly well controlled. Mostly, well in the normal range. (6) Normally functioning cardiac pacemaker present: Code(s): Z95.0 - Presence of cardiac pacemaker Plan: Being followed remotely. Office check with next visit. Orders: Orders CA echo transthoracic complete 6 Months Z95.3 - Presence of xenogenic heart valve Coding Level of Care Code Est Pt Level 4 (63797) Diagnoses Preoperative cardiovascular examination Z01.810 Status post transcatheter aortic valve replacement (TAVR) using bioprosthesis Z95.3 Chronic heart failure with preserved ejection fraction I50.32 Atherosclerotic cardiovascular disease I25.10 Essential hypertension I10 Normally functioning cardiac pacemaker present Z95.0 CPT Codes EKG - CPT: [id number], Complete ([id number])
[2023-04-02 13:24] VITALS: BP 138/76; PULSE 56; BMI 25.3
== END 2023-04-02 15:39 | disposition home or self-care (01) ==
PROVIDERS: PCP Family Medicine; Referring Provider Family Medicine; Visit Provider Internal Medicine
DX: I50.32 Chronic diastolic (congestive) heart failure (principal); Z01.810 Encounter for preprocedural cardiovascular examination; Z95.3 Presence of xenogenic heart valve; I25.10 Atherosclerotic heart disease of native coronary artery without angina pectoris; I10 Essential (primary) hypertension; Z95.0 Presence of cardiac pacemaker
CPT/HCPCS: 93010; 99214

== ENCOUNTER → 2023-04-02 13:21 | Outpatient (BNVA) | payer MEDICARE, SELFPAY ==
--- NOTE | 2023-04-03 19:10 | CONS_ITS ---
DATE OF SERVICE: 04/02/2023 REFERRING PHYSICIAN: Fred Chowdary MD HISTORY OF PRESENT ILLNESS: This is an 82-year-old white male, well known to me who is scheduled to have a left total knee replacement by Dr. Mcnally on April 17. He was seen earlier by his public relations manager, Dr. Rasmussen and in terms of cardiac clearance, he has had that done. He has now been feeling well and his main issue has been his left knee, which is causing him a great deal of discomfort. PAST MEDICAL HISTORY: Patient has a long history of hypertension (well controlled) and hyperlipidemia. He also has BPH, GERD, venous insufficiency, mild intention tremors and of course osteoarthritis primarily in his knees. He has also been noted to have in the past a right bundle branch block, PACs and PVCs. In 2012, patient had a normal ejection fraction with mild aortic stenosis. This is followed for a number of years and by 2017, the aortic stenosis got in terms of clinically significant and in the summer of 2018, he had a transcatheter aortic valve replacement, which has done fine so far. Shortly after that, he also developed sick sinus syndrome for which he has a pacemaker in (see cardiac notes). Since that time from a cardiac standpoint, he has done fairly well. In 2019, he had what was thought to be a TIA. He had a brief episode of nausea and vertigo. Workup was unremarkable though he did have moderate amount of stenosis in the right vertebral artery, which is possibly an issue in this case. Many years ago, he was thought to have a borderline diabetes, but has not proven to be significant. When he had his valve replacement, prior to that also had a cardiac catheterization, which revealed fairly unremarkable coronary arteries. He does have some diastolic CHF and has battled lower extremity edema for a number of years now, but has been well controlled lately. He has a right footdrop for which he uses an AFO. MEDICATIONS: Include Lasix 20 mg twice a day, lisinopril 20 twice a day, amlodipine 10 mg total, carvedilol 25 mg b.i.d., atorvastatin 10 mg, doxazosin 4 mg at bedtime and baby aspirin. The rest of his p.r.n. medications. In general, however, the patient has been feeling quite well and is in no recent significant cardiovascular symptoms and this has been well delineated in his cardiac evaluation on the same day as he saw me on April [address] Rasmussen. His recent 2D echo revealed a preserved ejection fraction, normal functioning TAVR. Patient came to see me on the for his right upper arm, which he had little bit of discoloration for the last 24 hours and some swelling. We also did a complete preoperative clearance at the same time. Otherwise, his only complaint has been the right upper arm, which a day or 2 ago noticed some discoloration in the right upper medial aspect of his humeral area associated with some mild swelling. He had no history of trauma, it did not hurt him. He did not have any other symptoms, he felt quite well. His public relations manager was concerned about possible cellulitis, although the patient has no symptoms associated with it and even as he came to see me today, he said it was actually feeling a lot better with the swelling going down. Examination revealed this was a clear evidence of some kind of spontaneous hematoma, which is resolving and the etiology is not clear, but it is of little clinical significance. Patient was reassured. Otherwise, the patient has been feeling quite well. His recent blood pressures have all been in the normal range. REVIEW OF SYSTEMS: The patient has had no chest pain, trouble breathing, worsening edema (mild lately), palpitations, dizziness, or vertigo. No bowel changes. He rarely has heartburn and he has p.r.n. medications. Again on careful review, he has had no recent history of vertigo. From a urinary standpoint, he has reasonably good flow without any signs of urinary obstructive symptoms. He has long history of some mild insomnia, but his sleep has not been too bad and has no recent falls, despite the fact that he has significant arthritis in both of his knees, the left being worse. He has meloxicam that he uses for his arthritis and he uses it only occasionally, may be 1 or 2 pills per week. Otherwise, patient has no other significant symptoms. PHYSICAL EXAMINATION: GENERAL: We find a pleasant elderly white male, in no distress. VITAL SIGNS: His blood pressure today 142/62, in the public relations manager office it was 138/76. Temperature normal. Weight and height are pretty unchanged. HEENT: Conjunctivae pink. Sclerae white. Mucous membranes are moist. NECK: Veins are flat. Carotids are 2+, 2- without any bruits. LUNGS: Totally clear. HEART: Reveals normal sinus rhythm about 65. He has a 1 to 2/6 systolic murmur associated with his TAVR. ABDOMEN: Soft and nontender. No masses or organomegaly. EXTREMITIES: He has no evidence of peripheral vascular disease. He does have venous insufficiency with mild edema on the right, not so much on the left. He does have right footdrop and wears an AFO and that has been reasonably good. NEUROLOGIC: His complete neurologic examination is within normal limits. Although, he has had some intention tremors in the past, he does not reveal any of this today. As far as the right arm goes, there is clear evidence of mild and spontaneous hematoma, which is resolving and I do not think this is clinically significant. DIAGNOSTIC DATA: He had EKG in the public relations manager office and it was fairly unremarkable. His recent lab 2 weeks ago reveals normal electrolytes. BUN 22, creatinine 1.05. His random blood sugar 112. Calcium is 9.5. White count 8400, hematocrit 38.7 which is actually little higher than it has been (he normally runs between 36.5 and 38). IMPRESSION: 1. Hypertension. 2. Right arm hematoma, resolving. 3. Sick sinus syndrome with pacemaker. 4. Status post transcatheter aortic valve replacement. 5. Gastroesophageal reflux disease. 6. High cholesterol. 7. Venous insufficiency. 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 9. BPH. 10. History of insomnia. 11. Osteoarthritis mostly of the knees. PLAN: From a medical standpoint, the patient appears to be very stable and he is cleared and okay to have his left knee done. His cardiovascular status is stable as noted by his public relations manager. He was advised on the hematoma and I will follow him postoperatively. MD TIFFANIE Spencer/FRANCISCO / [id number] MTDD
== END ==
PROVIDERS: PCP Family Medicine; Referring Provider Family Medicine; Visit Provider Internal Medicine
DX: Z01.810 Encounter for preprocedural cardiovascular examination (principal); I11.0 Hypertensive heart disease with heart failure; I50.32 Chronic diastolic (congestive) heart failure; I25.10 Atherosclerotic heart disease of native coronary artery without angina pectoris; Z95.3 Presence of xenogenic heart valve; Z95.0 Presence of cardiac pacemaker
CPT/HCPCS: 93005; 99212

== ENCOUNTER 2023-04-12 09:22 | Outpatient (REF) | payer MEDICARE, SELFPAY ==
--- NOTE | ~2023-04-12 | XR_ITS ---
EXAMINATION: XR KNEE AP STANDING CLINICAL INFORMATION: Pain COMPARISON: Knee standing radiograph from 07/25/2021 TECHNIQUE: AP bilateral standing view of the knees was obtained. FINDINGS: No acute visible fracture or dislocation. Multicompartment degenerative arthropathy of the bilateral knees greatest along the right lateral femorotibial compartment and medial left femorotibial compartment. Chondrocalcinosis noted along the bilateral tibial plateau. Subchondral cystic changes noted along the left tibial plateau. Joint spaces and alignment are otherwise maintained. Soft tissues are unremarkable. XR/XR knee standing BI IMPRESSION: 1. No acute visible fracture or dislocation. 2. Multicompartment degenerative arthropathy of the bilateral knees greatest along the right lateral femorotibial compartment and medial left femorotibial compartment.
--- NOTE | ~2023-04-12 | XR_ITS ---
EXAMINATION: XR KNEE, LEFT CLINICAL INFORMATION: Pain. COMPARISON: Radiographs dated 07/25/2021. TECHNIQUE: Lateral and axial views of the left knee are submitted. FINDINGS: There is bony demineralization. There is moderately severe narrowing of the patellofemoral compartment. A moderate joint effusion is seen. No fracture or dislocation is seen. There is no foreign body. XR/XR knee LT 2V IMPRESSION: 1. There is moderately severe osteoarthritic change of the patellofemoral compartment. 2. There is a moderate left knee joint effusion.
== END 2023-04-12 09:23 | disposition home or self-care (01) ==
LOC: HO.HOSX 09:22
PROVIDERS: PCP Family Medicine; Visit Provider Physician Assistant
DX: M17.12 Unilateral primary osteoarthritis, left knee (principal)
CPT/HCPCS: 73560; 73565

== ENCOUNTER 2023-04-12 09:22 | Outpatient (AMB) | payer MEDICARE, SELFPAY ==
--- NOTE | 2023-04-12 09:27 | MHC.OFFVIS ---
Intake Vital Signs 04/12/23 09:32 Height 5 ft 11 in Weight 181 lb BMI 25.2 Intake Visit Reasons: Preop LT TKA 04/17/23 NE Intake Note: Alfredito an 82 year old female who presents today for a pre-operative left TKA on 04/17/23. Pain management agreement reviewed and signed. Allergies Penicillins [PENICILLINS] Adverse Reaction (Severe, Verified 04/12/23 09:33) GI upset / nausea & vomiting Medication List - Last Reconciled 04/12/23 by Leila Norman PA-C amlodipine 10 mg PO DAILY aspirin 81 mg PO DAILY atorvastatin 10 mg PO DAILY carvedilol 25 mg PO BID clindamycin HCl 600 mg PO ONCE doxazosin 4 mg PO BEDTIME furosemide 20 mg PO DAILY lisinopril 20 mg PO BID meloxicam 15 mg PO DAILY PRN multivitamin 1 tab PO DAILY trazodone 25 mg PO BEDTIME PRN walker Folding Front wheeled walker HPI HPI Comments History of Present Illness Details Mr Mojica presents to the office today for preop visit. He is scheduled for left total knee arthroplasty with Dr. Mcnally. He continues to have ongoing pain and difficulty with ambulation in the left knee, which is affecting his quality of life; therefore, he has elected to move forward with surgery. [facility] Medical History Atherosclerotic cardiovascular disease Basal cell carcinoma Bruises easily Chronic heart failure with preserved ejection fraction Diverticulitis Essential hypertension GERD (gastroesophageal reflux disease) Normally functioning cardiac pacemaker present Osteoarthritis Pseudoaneurysm TIA (transient ischemic attack) Surgical History H/O colonoscopy History of cardiac catheterization (~01/30/18) History of esophagogastroduodenoscopy (EGD) History of permanent cardiac pacemaker placement (~02/2019) History of surgery Hx of tonsillectomy Status post transcatheter aortic valve replacement (TAVR) using bioprosthesis (~02/2019) Family History Father CVD (cardiovascular disease) Mother No problems noted. Social History Are you a primary dog day care attendant to a significant other at home: No Do you presently have visiting nurse or other home services: No Patient Tobacco Use Status: Never used Tobacco Current occupational status: retired Current occupation: rt handed Review of Systems Const All systems reviewed & are unremarkable except as noted in HPI and below Physical Exam Vital Signs: BMI result Body Mass Index 25.2 Const General: cooperative and no acute distress Orientation/consciousness: patient oriented x3 HEENT Head: Yes normal to inspection, Yes normocephalic and Yes atraumatic Eyes General: appearance normal, both eyes and all related structures Neck Neck: Yes normal visual inspection and Yes no lymphadenopathy Resp Effort & Inspection: normal respiratory effort and able to speak in complete sentences Cardio Rate: regular rate Peripheral pulses: Peripheral pulses 2+ throughout GI Inspection: Yes normal to inspection Palpation (GI): Soft to palpation Skin General skin exam: no rashes or lesions noted Neuro General: patient oriented x3 Extrem Other: Left knee: Skin intact. There is no abrasion, laceration or rash. ROM is 0-95 degrees. Calf supple, nontender. NVI. Psych Appearance: grossly normal Mental Status: mental status grossly normal Results Reviewed Results Reviewed: Xrays were obtained in the office today and personally reviewed by me of the left knee show severe tricompartmental oa with collapse. Assessment & Plan Assessment & Plan (1) Osteoarthritis of left knee: Code(s): M17.12 - Unilateral primary osteoarthritis, left knee Plan I discussed in detail the procedure and what to expect pre and post operatively. We discussed the risks, benefits and alternatives to the surgery as well as the rehabilitation course. The risks; which include, but are not limited to infection, bleeding, nerve injury, ongoing pain, swelling, and stiffness, perioperative risk of injury to bones and soft tissues, and blood clots. I?ve answered all questions and with their understanding they have consented to move forward with Left total knee arthroplasty with Dr. Mcnally He does have a pacemaker, takes ASA 81 mg tabs He was advised by anesthesia he will have General anesthesia due to cardiac history Orders: Orders XR knee LT 2V Today M25.562 - Pain in left knee XR knee standing BI Today M25.561 - Pain in right knee, M25.562 - Pain in left knee Medications: Discontinued amlodipine 10 mg (2 x 5 mg) PO DAILY 180 tabs 3RF I10 - Essential (primary) hypertension Patient Instructions: Scribed for Ta-Jessica Meuse, PA-C, by Marc Gutierrez medical education specialist, on 04/12/2023 at 9:30 AM Leila RUIZ PA-C, have personally reviewed and agree with the information entered by the scribe. Coding Level of Care Code Est Pt Level 3 (55827) Diagnoses Osteoarthritis of left knee M17.12
[2023-04-12 09:32] VITALS: BMI 25.2
== END 2023-04-12 10:46 | disposition home or self-care (01) ==
PROVIDERS: PCP Family Medicine; Visit Provider Physician Assistant
DX: M17.12 Unilateral primary osteoarthritis, left knee (principal)
CPT/HCPCS: 99024

== ENCOUNTER 2023-04-17 07:43 | Day surgery (SDC) | payer MEDICARE, SELFPAY ==
[2023-04-06 12:24] VITALS: BP 135/63; PULSE 52; RESP 20; O2SAT 98; BMI 25.2
--- NOTE | 2023-04-06 12:46 | HO.ANESPROP2 ---
Documented by User: Cathy Jose NP 04/06/23 13:13 HPI - Anesthesia Eval Consult details Narrative: 82yo M for Left Knee Replacement Total Cardiac optimized Medically optimized No recent illness No CP/SOB with minimal activity. Limited to knee pain s/p TAVR 2018. 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 No SOB/orthopnea Case reviewed with Dr Montemayor. Rec's General anesthesia RE: s/p TAVR PMFSH Active Problems Active Problems: All Active Problems (Updated 04/06/23 @ 12:20 by Yany Cortes RN) Encounter for interrogation of cardiac pacemaker (Acute) Osteoarthritis of knees, bilateral (Acute) Osteoarthritis of left knee (Acute) Preoperative cardiovascular examination (Acute) Essential hypertension (Acute) Atherosclerotic cardiovascular disease (Acute) Chronic heart failure with preserved ejection fraction (Acute) Status post transcatheter aortic valve replacement (TAVR) using bioprosthesis (Acute ~02/2019) Past Medical History Medical History Atherosclerotic cardiovascular disease Basal cell carcinoma Bruises easily Chronic heart failure with preserved ejection fraction Diverticulitis Essential hypertension GERD (gastroesophageal reflux disease) Normally functioning cardiac pacemaker present Osteoarthritis Pseudoaneurysm TIA (transient ischemic attack) Family History Family History Father CVD (cardiovascular disease) Mother No problems noted. Family history of problems with anesthesia: No Surgical History Surgical History H/O colonoscopy History of cardiac catheterization (~01/30/18) History of esophagogastroduodenoscopy (EGD) History of permanent cardiac pacemaker placement (~02/2019) History of surgery Hx of tonsillectomy Status post transcatheter aortic valve replacement (TAVR) using bioprosthesis (~02/2019) History of Problems with Anesthesia: No Social History Social History Are you a primary personal care worker to a significant other at home: No Do you presently have visiting nurse or other home services: No Patient Tobacco Use Status: Never used Tobacco Use of substances other than those prescribed or required for medical reasons: No Have you been hit, kicked, punched, or otherwise hurt by someone within the past year? If so, by whom?: No Are you DNR?: Yes Advance Directives Information Provided: Yes (will bring copies DOS) Advance Directives on File: No Recently lost weight without trying: No Eating poorly because of decreased appetite: No Nutrition Risks: Surgical patient >75years Poor oral hygiene: No (partial upper) Current occupational status: retired Current occupation: rt handed Meds Allergies Allergy/AdvReac Type Severity Reaction Status Date / Time Penicillins [PENICILLINS] AdvReac Severe GI upset / Verified 04/17/23 08:48 nausea & vomiting Home Medications Medication Instructions Recorded Confirmed Last Taken Type aspirin 81 mg tablet,delayed 81 mg PO DAILY 08/23/20 04/12/23 04/16/23 History release atorvastatin 10 mg tablet 10 mg PO DAILY 08/23/20 04/12/23 04/16/23 History doxazosin 4 mg tablet 4 mg PO BEDTIME 08/23/20 04/12/23 04/16/23 History lisinopril 20 mg tablet 20 mg PO BID 08/23/20 04/12/23 04/16/23 History multivitamin 1 tab PO DAILY 08/23/20 04/12/23 04/16/23 History trazodone 50 mg tablet 25 mg PO BEDTIME PRN Insomnia 08/23/20 04/12/23 Unknown History meloxicam 15 mg tablet 15 mg PO DAILY PRN Pain 07/25/21 04/12/23 04/10/23 History furosemide 20 mg tablet 20 mg PO DAILY 08/22/21 04/12/23 04/16/23 History clindamycin HCl 300 mg capsule 600 mg PO ONCE 10/23/22 04/12/23 Unknown History amlodipine 5 mg tablet 10 mg PO DAILY 04/06/23 04/12/23 04/17/23 04:45 History Exam Exam Date and Time: April 06, 2023 124 Height,Weight and Vital Signs: Height 5 ft 11 in Weight 82.1 kg Last Vital Signs Pulse 52 04/06/23 12:24 Resp 20 04/06/23 12:24 BP 135/63 04/06/23 12:24 Pulse Ox 98 04/06/23 12:24 O2 Del Method Room Air 04/06/23 12:24 Pertinent Lab Results Pertinent Lab Results: Laboratory Tests 03/20/23 03/20/23 09:55 09:55 WBC 8.4 Hgb 13.0 L Hct 38.7 L Plt Count 161 Sodium 141 Potassium 4.9 Chloride 109 H Carbon Dioxide 26 BUN 22 H Creatinine 1.05 Narrative Narrative: EKG 03/2023 atrial sensed, ventricular paced rhythm at 56/Min. Cardiac Device Check Details: Date of service- 02/11/2023?; Battery life >10 years; normal lead parameters; AP 6.3%; BOILER CONTROL TECHNICIAN 98.5%; very brief NSVT, otherwise no significant arrhythmias.? Overall normal device function. Airway Mallampati Class: II TM Dist: >3cm Neck ROM: Full Partial: Upper Loose/Missing/Broken Teeth: Yes (missing lower molars, crowned lower molars) Heart: darrick, regular Assessment and Plan Assessment Anesthesia Assessment: Anesthesia Plan Discussed and PAT Visit Final Anesthetic Review Family History of Problems with Anesthesia: No History of Problems with Anesthesia: No Documented by User: Johnny Montemayor MD 04/17/23 09:50 [facility] Past Medical History Medical History Atherosclerotic cardiovascular disease Basal cell carcinoma Bruises easily Chronic heart failure with preserved ejection fraction Diverticulitis Essential hypertension GERD (gastroesophageal reflux disease) Normally functioning cardiac pacemaker present Osteoarthritis Pseudoaneurysm TIA (transient ischemic attack) Family History Family History Father CVD (cardiovascular disease) Mother No problems noted. Surgical History Surgical History H/O colonoscopy History of cardiac catheterization (~01/30/18) History of esophagogastroduodenoscopy (EGD) History of permanent cardiac pacemaker placement (~02/2019) History of surgery Hx of tonsillectomy Status post transcatheter aortic valve replacement (TAVR) using bioprosthesis (~02/2019) Social History Social History Are you a primary personal care worker to a significant other at home: No Do you presently have visiting nurse or other home services: No Patient Tobacco Use Status: Never used Tobacco Use of substances other than those prescribed or required for medical reasons: No Have you been hit, kicked, punched, or otherwise hurt by someone within the past year? If so, by whom?: No Are you DNR?: Yes Advance Directives Information Provided: Yes (will bring copies DOS) Advance Directives on File: No Recently lost weight without trying: No Eating poorly because of decreased appetite: No Nutrition Risks: Surgical patient >75years Poor oral hygiene: No (partial upper) Current occupational status: retired Current occupation: rt handed Meds Allergies Allergy/AdvReac Type Severity Reaction Status Date / Time Penicillins [PENICILLINS] AdvReac Severe GI upset / Verified 04/17/23 08:48 nausea & vomiting Home Medications Medication Instructions Recorded Confirmed Last Taken Type aspirin 81 mg tablet,delayed 81 mg PO DAILY 08/23/20 04/12/23 04/16/23 History release atorvastatin 10 mg tablet 10 mg PO DAILY 08/23/20 04/12/23 04/16/23 History doxazosin 4 mg tablet 4 mg PO BEDTIME 08/23/20 04/12/23 04/16/23 History lisinopril 20 mg tablet 20 mg PO BID 08/23/20 04/12/23 04/16/23 History multivitamin 1 tab PO DAILY 08/23/20 04/12/23 04/16/23 History trazodone 50 mg tablet 25 mg PO BEDTIME PRN Insomnia 08/23/20 04/12/23 Unknown History meloxicam 15 mg tablet 15 mg PO DAILY PRN Pain 07/25/21 04/12/23 04/10/23 History furosemide 20 mg tablet 20 mg PO DAILY 08/22/21 04/12/23 04/16/23 History clindamycin HCl 300 mg capsule 600 mg PO ONCE 10/23/22 04/12/23 Unknown History amlodipine 5 mg tablet 10 mg PO DAILY 04/06/23 04/12/23 04/17/23 04:45 History Exam Airway Lungs: cta b/l Assessment and Plan Final Anesthetic Review NPO: Yes ASA Class: III Final Preanesthetic Review: No Changes in Pt Med Stat, Meds/Allgs Chart Reviewed, Consent Obtained/Reviewed and Anes Risks/Benef Reviewed Patient Risk: Intermediate Procedure Risk: Intermediate Assessment/Block/Sedation in SS: Assess/Block/Sedation-SS Anesthetic Plan Anesthetic Plan: GA, Spinal, Regional Block and Agree w/ Assess. and Plan Disposition: Standard PACU
[2023-04-06 15:44] LABS: MRSA Nasal PCR NEGATIVE (Negative); SA Nasal PCR NEGATIVE (Negative)
[2023-04-17] VITALS (16 sets, daily range): BP systolic 94–154; BP diastolic 49–80; PULSE 49–74; RESP 16–20; TEMP 36.3–37.2; O2SAT 94–100; BMI 27.7
--- NOTE | ~2023-04-17 | XR_ITS ---
EXAMINATION: XR KNEE, LEFT CLINICAL INFORMATION: Status post total knee arthroplasty. COMPARISON: 04/12/2023 TECHNIQUE: Two views of the left knee. FINDINGS: Status post total knee arthroplasty. Small joint effusion is present. Alignment is normal at the patellofemoral and tibiofemoral compartments. Anterior skin bruna in place. Postoperative soft tissue gas of the anterior thigh and knee. No abnormal lucency or fracture around the hardware. XR/XR knee LT 2V IMPRESSION: Normal alignment, status post left total knee arthroplasty. No periprosthetic fracture.
[2023-04-17] MEDS: Lactated Ringers 1,000 ML 50 ML IVCONT (08:40)
[2023-04-17] MEDS: vancomycin HCL 1,500 MG in 0.9 % Sodium Chloride 500 ML 333.33 MG IV (08:40)
--- NOTE | 2023-04-17 09:15 | MHC.SHP ---
Pre-Procedural Eval Section A Date of Service: 04/17/23 The patient is an INPATIENT: No Changes since office visit: No Cold of Flu in the past 2 weeks, No New Medical Problems, No Changes in Medication and No Patient answered all questions The History & Physical has been completed within 30 days and I have reviewed it.: Yes Section B Chief Complaint: Unilateral primary osteoarthritis, left knee Allergies: Allergies Allergy/AdvReac Type Severity Reaction Status Date / Time Penicillins [PENICILLINS] AdvReac Severe GI upset / Verified 04/17/23 08:48 nausea & vomiting Plan I have reviewed the history and physical and performed a pertinent physical examination on my patient. No changes have occurred unless specified. Time Spent With Patient Time: Total time managing care of this patient today ____ minutes.
[2023-04-17 09:33] LABS: Hemoglobin 12.8 g/dl (14.0-18.0)
--- NOTE | 2023-04-17 12:53 | PHA.MEDREC ---
Pharmacy Consult ? Medication Reconciliation Medication reconciliation completed by RN, reviewed by pharmacy Ray.
--- NOTE | 2023-04-17 13:00 | P.BOP_ITS ---
Brief Operative Note Date of Service: 04/17/23 Pre-op diagnosis: Left knee OA Post-op diagnosis: same Procedure: Left TKA Implants: [place] Triathlon posterior stabilized cemented 11/15/12ps/32a Surgeon: Mike Mcnally MD Anesthesia: GETA Was an Security Public Safety Officer used for this Procedure?: Yes Security Public Safety Officer: Leila Norman Estimated blood loss (mL): 50 Tourniquet time (min): 60 IV fluids (mL): 1,000 Pathology: other Condition: stable Disposition: PACU
[2023-04-17] MEDS: Acetaminophen 325 MG TABLET 650 MG PO (13:13)
[2023-04-17] MEDS: oxyCODONE HCl Immed Release 5 MG TABLET PO (13:14)
[2023-04-17] MEDS: HYDROmorphone HCl 0.5 MG/0.5 ML SYRINGE IVPUSH (14:20)
[2023-04-17] MEDS: Lactated Ringers 1,000 ML 100 ML IVCONT ×2 (14:59→23:20)
[2023-04-17] MEDS: 0.9 % Sodium Chloride Flush 3 ML SYRINGE IVFLUSH (15:08)
[2023-04-17] MEDS: HYDROmorphone HCl 0.5 MG/0.5 ML SYRINGE 0.25 MG IVPUSH ×2 (15:43→21:42)
--- NOTE | 2023-04-17 15:45 | W.PM.OPN ---
Operative Note Operative Note Date of Service: 04/17/23 Narrative: Date of Service: 04/17/23 Pre-op diagnosis: Left knee OA Post-op diagnosis: same Procedure: Left TKA Implants: [place] Triathlon posterior stabilized cemented 11/15/12ps/32a Surgeon: Mike Mcnlaly MD Anesthesia: GETA Was an Photocopy Operator used for this Procedure?: Yes Photocopy Operator: Leila Norman Estimated blood loss (mL): 50 Tourniquet time (min): 60 IV fluids (mL): 1,000 Pathology: other Condition: stable Disposition: PACU Procedure in detail: The patient was brought to the operating room and prepped and draped in standard sterile fashion. A time-out was called to identify proper site proper procedure proper surgeon and IV antibiotics were administered. 1 g of IV tranexamic acid was administered. I began by making a midline incision to the retinaculum and performed a medial parapatellar arthrotomy. The patella was translated laterally and the knee was flexed up. There was tricompartmental eburnation. I performed a small medial peel and resected the infrapatellar fat pad. Aitkin's line was then used to drill my intramedullary femoral guide and my distal femur cut of 10 mm was made in 5 degrees of valgus while protecting the soft tissues. I then measured a # 4 femur and placed my cutting guide and made my anterior posterior and chamfer cuts protecting the soft tissues at all times. I then made my box but removing the PCL. Once I was satisfied with my cuts I turned my attention to the tibia. I removed the meniscus medially and laterally and , using an external cutting guide, in line with the tibial crest and the third ray, I made my distal tibial cut in 0 deg slope of while protecting the posterior soft tissues at all times. An extension block was used to confirm appropriate amount of bony resection. I then sized a #5 tibia and once I was satisfied that there was complete tibial coverage I placed my trial and with the trial femur in place took the knee through range of motion. I was satisfied with the extension and flexion as well as the stability and balance at 0, 30 and 90 degrees. I then turned my attention to the patella where I removed 1 cm from the undersurface of the patella and then trialed a 32a patellar button. Again the knee was taken through range of motion I was satisfied with the tracking. A femoral bone plug was placed and the knee was irrigated copiously. I then cemented the patella, tibia and femur in standard fashion. Once the bone cement was dry, and all excess cement was removed, I trialed different inserts until I selected a #13ps insert. The final insert was placed and a 3 minutes iodine soak with local TXA was performed. The knee was then closed with a running Quill suture, a 3 0 Vicryl and bruna on the skin. Patient was then placed in sterile dressing and brought to recovery room in stable condition there were no known complications.
--- NOTE | 2023-04-17 15:50 | P.CONHOSP_ITS ---
History of Present Illness Data of Consult Service Date: 04/17/23 Requesting physician: Leila Norman Primary Care Provider: MD SARMAD Spencer Reason for consult: medical management 82-year-old male with history of heart failure with preserved ejection fraction, hypertension, GERD, history TIA, history of coronary artery disease, history of basal cell carcinoma, history of sick sinus syndrome s/p pacemaker placement, and history bovine TAVR admit to Orthopedic surgery for management of osteoarthritis of the left knee s/p TKA with consult placed hospitalist service for medical management. The patient was reporting severe pain in the left knee but is receiving pain medication. He has no other complaints at this time. Denies any alcohol use, illicit drug use, or cigarette smoking. Review of Systems Review of Systems: General: No fevers, malaise, unintentional weight loss HEENT: No blurred vision, diplopia. No sore throat, nasal congestion, rhinorrhea, sinus pain, ear pain Cardiovascular: No chest pain, palpitations, or leg edema Respiratory: No shortness of breath, wheezing, cough GI: No abdominal pain, nausea, vomiting, diarrhea, constipation, melena, hematochezia : No dysuria, hematuria, increased urinary frequency, decreased urinary output MSK: No myalgia, back pain Neuro: No headaches, weakness, paresthesias Skin: No rashes or lesions [facility] Medical History Atherosclerotic cardiovascular disease Basal cell carcinoma Bruises easily Chronic heart failure with preserved ejection fraction Diverticulitis Essential hypertension GERD (gastroesophageal reflux disease) Normally functioning cardiac pacemaker present Osteoarthritis Pseudoaneurysm TIA (transient ischemic attack) Family History Father CVD (cardiovascular disease) Mother No problems noted. Surgical History H/O colonoscopy History of cardiac catheterization (~01/30/18) History of esophagogastroduodenoscopy (EGD) History of permanent cardiac pacemaker placement (~02/2019) History of surgery Hx of tonsillectomy Status post transcatheter aortic valve replacement (TAVR) using bioprosthesis (~02/2019) Social History Household Members: Spouse Housing: House Are you a primary care program resident to a significant other at home: No Do you presently have visiting nurse or other home services: No Patient Tobacco Use Status: Never used Tobacco Second Hand Smoke Exposure: No Advance Directives Date on File: 04/17/23 Current occupational status: retired Current occupation: rt handed Meds Allergies Allergy/AdvReac Type Severity Reaction Status Date / Time Penicillins [PENICILLINS] AdvReac Severe GI upset / Verified 04/17/23 08:48 nausea & vomiting Active Medications: Current Medications Acetaminophen (Acetaminophen 325 Mg Tablet) 650 mg PO Q6H PRN PRN Reason: Pain, Mild (Pain Scale 1-3) Aspirin (Aspirin 325 Mg Tablet) 325 mg PO BID [facility] Carvedilol (Carvedilol 25 Mg Tablet) 25 mg PO BID [facility]; Protocol Celecoxib (Celecoxib 200 Mg Capsule) 200 mg PO BID [facility] Docusate Sodium (Docusate Sodium 100 Mg Capsule) 100 mg PO BID [facility] Hydromorphone HCl (Hydromorphone Hcl 0.5 Mg/0.5 Ml Syringe) 0.25 mg IVPUSH Q4H PRN; Protocol PRN Reason: Pain, Severe (Pain Scale 7-10) Last Admin: 04/17/23 15:43 Dose: 0.25 mg Lactated Ringer's (Lr) 1,000 mls @ 100 mls/hr IVCONT .Q10H LAMINE Stop: 04/18/23 12:38 Last Admin: 04/17/23 14:59 Dose: 100 mls/hr Vancomycin HCl 1,000 mg/ (Sodium Chloride) 270 mls @ 270 mls/hr IV POSTOP ONE Stop: 04/17/23 21:59 Ondansetron HCl (Ondansetron Hcl 4 Mg/2 Ml Vial) 4 mg IVPUSH Q8H PRN PRN Reason: Nausea and Vomiting Oxycodone HCl (Oxycodone Hcl Immed Release 5 Mg Tablet) 5 mg PO Q4H PRN PRN Reason: Pain, Moderate(Pain Scale 4-6) Sodium Chloride (0.9 % Sodium Chloride Flush 3 Ml Syringe) 3 ml IVFLUSH QSHIFT [facility] Last Admin: 04/17/23 15:08 Dose: 3 ml Trazodone HCl (Trazodone Hcl 25 Mg Halftab) 25 mg PO BEDTIME PRN PRN Reason: Insomnia Home Medications Medication Instructions Recorded Confirmed Last Taken Type aspirin 81 mg tablet,delayed 81 mg PO DAILY 08/23/20 04/12/23 04/16/23 History release atorvastatin 10 mg tablet 10 mg PO DAILY 08/23/20 04/12/23 04/16/23 History doxazosin 4 mg tablet 4 mg PO BEDTIME 08/23/20 04/12/23 04/16/23 History lisinopril 20 mg tablet 20 mg PO BID 08/23/20 04/12/23 04/16/23 History multivitamin 1 tab PO DAILY 08/23/20 04/12/23 04/16/23 History trazodone 50 mg tablet 25 mg PO BEDTIME PRN Insomnia 08/23/20 04/12/23 Unknown History meloxicam 15 mg tablet 15 mg PO DAILY PRN Pain 07/25/21 04/12/23 04/10/23 History furosemide 20 mg tablet 20 mg PO DAILY 08/22/21 04/12/23 04/16/23 History clindamycin HCl 300 mg capsule 600 mg PO ONCE 10/23/22 04/12/23 Unknown History amlodipine 5 mg tablet 10 mg PO DAILY 04/06/23 04/12/23 04/17/23 04:45 History Physical Exam Vital Signs and Narrative: Vital Signs: Last Vital Signs Temp 98 F 04/17/23 14:44 Pulse 63 04/17/23 14:44 Resp 17 04/17/23 14:44 BP 154/80 H 04/17/23 14:44 Pulse Ox 94 04/17/23 14:44 O2 Del Method Room Air 04/17/23 14:44 BMI result Body Mass Index 27.7 Constitutional - Awake and Alert, No apparent distress Eyes - PERRLA, EOMI Cardiovascular - S1S2, RRR, No edema Respiratory - Normal lung expansion, Normal respiratory effort, No respiratory distress, CTA bilaterally Gastrointestinal - NT / ND; +BS; No rebound or guarding Extremities - no calf tenderness bilaterally, no swelling Musculoskeletal - left knee in post-op banadage Skin - Warm/Dry Neurological - Alert & oriented x3 Results Labs 04/17/23 09:12 Imaging Radiologist's Impressions: Impressions Knee X-Ray 04/17/23 13:46 IMPRESSION: Normal alignment, status post left total knee arthroplasty. No periprosthetic fracture. Assessment and Plan (1) Osteoarthritis of left knee: Status: Acute Plan 82-year-old male with history of heart failure with preserved ejection fraction, hypertension, GERD, history TIA, history of coronary artery disease, history of basal cell carcinoma, history of sick sinus syndrome s/p pacemaker placement, and history bovine TAVR admit to Orthopedic surgery for management of os teoarthritis of the left knee s/p TKA with consult placed hospitalist service for medical management. #OA left knee s/p left TKA POD0 -plan per psychiatry #HF with preserved EF -euvolemic on exam -continue bb, po diuretics # hypertension -resume carvedilol. Hold lisinopril and amlodipine until discharge on last uncontrolled hypertension # HLD/CAD -continue statin, ASA, beta-davon # history TIA -continue ASA Thank you for this consult, will continue following Time Spent With Patient Time: Total time managing care of this patient today ____ minutes.
[2023-04-17] MEDS: ondansetron HCL 4 MG/2 ML VIAL IVPUSH (16:53)
[2023-04-17] MEDS: vancomycin HCL 1,000 MG in 0.9 % Sodium Chloride 250 ML 270 MG IV (19:55)
[2023-04-17] MEDS: Docusate Sodium 100 MG CAPSULE PO (19:59)
[2023-04-17] MEDS: Celecoxib 200 MG CAPSULE PO (19:59)
[2023-04-17] MEDS: carvediloL 25 MG TABLET PO (19:59)
[2023-04-18] MEDS: HYDROmorphone HCl 0.5 MG/0.5 ML SYRINGE 0.25 MG IVPUSH (02:54)
[2023-04-18 02:57] VITALS: BP 157/72; PULSE 75; RESP 18; TEMP 36.8; O2SAT 94
[2023-04-18 06:26] LABS: MANUAL DIFF FLAG NO
[2023-04-18 06:31] LABS: Basophils Percent Auto 0.2 % (0-2); Eosinophils Percent Auto 0.1 % (0-4); Hemoglobin 12.2 g/dl (14.0-18.0); Imm Gran Abs Auto 0.06 X10*3/uL (0.00-0.03); Imm Gran Pct Auto 0.4 % (0.0-0.4); Lymphocytes Absolute Auto 0.8 X10*3/uL (1.2-4.9); Lymphocytes Percent Auto 5.7 % (20-40); Mean Corpuscular HGB Conc 33.9 g/dl (31.0-36.0); Mean Corpuscular Volume 88.5 fL (80.0-98.0); Mean Platelet Volume 10.9 fL (9.4-12.4); Monocytes Absolute Auto 1.4 X10*3/uL (0.1-1.2); Monocytes Percent Auto 9.8 % (2-11); Neutrophils Absolute Auto 11.8 x10*3/uL (2.0-8.3); Neutrophils Percent Auto 83.8 % (45-73); Platelet Count 146 X10*3/uL (160-400); Red Blood Count 4.07 X10*6/uL (4.60-5.80); Red Cell Distribution Width 13.1 % (11.0-16.0); White Blood Count 14.1 X10*3/uL (4.8-10.8)
[2023-04-18 06:44] LABS: Anion Gap 13 (12-20); Blood Urea Nitrogen 21 mg/dL (9-16); Calcium 9.1 mg/dL (8.4-10.2); Carbon Dioxide 20 mmol/L (22-29); Chloride 111 mmol/L (96-108); Estimated Glomerular Filt Rate > 60; Glucose Fasting 185 mg/dL (60-99); Potassium 3.8 mmol/L (3.3-5.1); Sodium 140 mmol/L (135-145)
[2023-04-18 07:02] VITALS: BP 152/76; PULSE 71; RESP 15; TEMP 36.1; O2SAT 95
[2023-04-18] MEDS: Aspirin 325 MG TABLET PO ×2 (09:14→20:46)
[2023-04-18] MEDS: Celecoxib 200 MG CAPSULE PO ×2 (09:15→20:47)
[2023-04-18] MEDS: oxyCODONE HCl Immed Release 5 MG TABLET PO ×2 (09:15→20:47)
[2023-04-18] MEDS: Docusate Sodium 100 MG CAPSULE PO ×2 (09:15→20:46)
[2023-04-18] MEDS: amLODIPine Besylate 5 MG TABLET PO (09:15)
[2023-04-18] MEDS: Furosemide 20 MG TABLET PO (09:16)
[2023-04-18] MEDS: Acetaminophen 325 MG TABLET 650 MG PO ×2 (09:16→20:46)
[2023-04-18] MEDS: carvediloL 25 MG TABLET PO ×2 (09:16→20:47)
[2023-04-18] MEDS: Lactated Ringers 1,000 ML 100 ML IVCONT (09:18)
--- NOTE | 2023-04-18 09:44 | P.PNOP_ITS ---
Subjective Subjective Date of Service: 04/18/23 Interval history: POD 1 sp LT TKA no overnight events resting in bed denies chest pain, sob, palptations Physical Exam Vital Signs: Vital Signs: Last Vital Signs Temp 97 F 04/18/23 07:02 Pulse 71 04/18/23 07:02 Resp 15 04/18/23 07:02 BP 152/76 H 04/18/23 07:02 Pulse Ox 95 04/18/23 07:02 O2 Del Method Room Air 04/18/23 07:02 BMI result Body Mass Index 27.7 Const: General: cooperative, healthy appearing and no acute distress Resp: Effort & Inspection: normal respiratory effort and able to speak in complete sentences Cardio: Rate: regular rate Peripheral pulses: Peripheral pulses 2+ throughout GI: Palpation (GI): Soft to palpation Skin: General skin exam: no rashes or lesions noted Extrem: Other: * Continue pain mgmnt * Begin Aspirin for dvt ppx * begin PT for LT TKA * Dispo planning-Pending PT eval, pain mgmnt Procedures Date of Service Date of Service: 04/18/23 Progress Note: A&P Time Spent With Patient Time: Total time managing care of this patient today ____ minutes. Quality Stroke Does the patient have a stroke diagnosis?: No VTE Prior VTE?: No VTE Risk Level:: Surgical - very high VTE Device Contraindication: N/A - Device Ordered VTE Drug Contraindication: N/A - Med Ordered
--- NOTE | 2023-04-18 11:30 | HO.POSTANES ---
Post Anesthesia Evaluation Post Anesthesia Evaluation Date of Service: 04/18/23 Vital Signs: Vital Signs Temp Pulse Resp BP Pulse Ox O2 Del Method 04/18/23 07:02 97 F 71 15 152/76 H 95 Room Air 04/18/23 02:57 98.3 F 75 18 157/72 H 94 Room Air Anesthesia: Spinal and Nerve Block Mental Status: Awake Pain Control: Satisfactory Nausea/Vomiting: None Hydration: Adequate Anesthesia-Related Issues: No Anes. Related Issues
--- NOTE | 2023-04-18 12:10 | MHC.CM.PN ---
PT REPORTS HE LIVES AT HOME WITH HIS AND IS INDEPENDENT WITH CARE HE DENIES USE OF DME [employer] BUT REPORTS HE DID OBTAIN A WALKER FOR USE ONCE DC HE DID NOT HAVE ANY SERVICES [facility] [facility] BUT IS AWARE [facility] WILL PROVIDE SERVICES AT DC HCP AND POA ON FILE GUILLERMINA NATH IS THE PTS PCP DCP: HOME WITH [facility] TO TRANSPORT
[2023-04-18 15:47] VITALS: BP 139/66; PULSE 67; RESP 18; TEMP 36.4; O2SAT 95
[2023-04-18 19:53] VITALS: BP 168/74; PULSE 74; RESP 17; TEMP 37.1; O2SAT 95
[2023-04-18] MEDS: Doxazosin Mesylate 2 MG TABLET 4 MG PO (20:46)
[2023-04-19] MEDS: 0.9 % Sodium Chloride Flush 3 ML SYRINGE IVFLUSH ×2 (00:29→07:15)
[2023-04-19 03:13] VITALS: BP 155/71; PULSE 67; RESP 17; TEMP 36.8; O2SAT 94
[2023-04-19] MEDS: oxyCODONE HCl Immed Release 5 MG TABLET PO (07:10)
[2023-04-19 07:24] LABS: MANUAL DIFF FLAG NO
[2023-04-19 07:29] LABS: Basophils Percent Auto 0.3 % (0-2); Eosinophils Absolute Auto 0.2 X10*3/uL (0.0-0.4); Eosinophils Percent Auto 1.5 % (0-4); Hematocrit 33.2 % (42.0-52.0); Hemoglobin 11.1 g/dl (14.0-18.0); Imm Gran Abs Auto 0.05 X10*3/uL (0.00-0.03); Imm Gran Pct Auto 0.5 % (0.0-0.4); Lymphocytes Absolute Auto 0.9 X10*3/uL (1.2-4.9); Lymphocytes Percent Auto 8.3 % (20-40); Mean Corpuscular HGB Conc 33.4 g/dl (31.0-36.0); Mean Corpuscular Hemoglobin 29.7 pg (27.0-33.0); Mean Corpuscular Volume 88.8 fL (80.0-98.0); Monocytes Absolute Auto 1.3 X10*3/uL (0.1-1.2); Monocytes Percent Auto 12.3 % (2-11); Neutrophils Absolute Auto 8.1 x10*3/uL (2.0-8.3); Neutrophils Percent Auto 77.1 % (45-73); Red Blood Count 3.74 X10*6/uL (4.60-5.80); Red Cell Distribution Width 13.2 % (11.0-16.0); White Blood Count 10.5 X10*3/uL (4.8-10.8)
[2023-04-19 07:47] LABS: Anion Gap 12 (12-20); Blood Urea Nitrogen 21 mg/dL (9-16); Calcium 8.8 mg/dL (8.4-10.2); Carbon Dioxide 24 mmol/L (22-29); Chloride 108 mmol/L (96-108); Creatinine Clr Calc Pharmacy 67.3; Estimated Glomerular Filt Rate > 60; Glucose Fasting 137 mg/dL (60-99); Potassium 4.6 mmol/L (3.3-5.1); Sodium 139 mmol/L (135-145)
[2023-04-19 08:00] VITALS: BP 156/72; PULSE 74; RESP 16; TEMP 36.6; O2SAT 94
[2023-04-19 08:08] LABS: Platelet Count 97 X10*3/uL (160-400)
[2023-04-19] MEDS: Docusate Sodium 100 MG CAPSULE PO (08:41)
[2023-04-19] MEDS: Celecoxib 200 MG CAPSULE PO (08:42)
[2023-04-19] MEDS: lisinopriL 20 MG TABLET PO (08:42)
[2023-04-19] MEDS: Aspirin 325 MG TABLET PO (08:42)
[2023-04-19] MEDS: amLODIPine Besylate 5 MG TABLET PO (08:42)
[2023-04-19] MEDS: Furosemide 20 MG TABLET PO (08:42)
[2023-04-19] MEDS: carvediloL 25 MG TABLET PO (08:42)
[2023-04-19 09:27] VITALS: PULSE 76; O2SAT 96
--- NOTE | 2023-04-19 10:53 | P.DS_ITS ---
DS: Providers Provider Date of Service: 04/19/23 Primary care physician: Fred Chowdary MD Consults: 04/17/23 14:42 Consult to Hospitalist Routine Comment: Consulting Provider: Hospitalist Reason For Exam: h/o chf DS: Transfer Hospital Acceptance Reason for Transfer: The patient underwent a successful Left total knee arthroplasty on, was transferred to PACU and then to the floor to recover. During their stay, their vitals were stable, afebrile at 97.8. Labs were unremarkable, H/H 11.1/33.2. POD 1 he was started on Aspirin 325mg tabs po bid for DVT ppx, they also received Physical Therapy services twice a day. Physical therapy should include gait training, ROM to tolerance and quad strength. He is WBAT. Prior to discharge, his dressing was changed, incision clean dry and intact, new Aquacel dressing applied. The Aquacel dressing should remain intact and dry at all times. Any concerns with the dressing, please contact orthopedic office. No showering. The plan is to be discharged home with [facility]NA DS: Diagnosis Discharge Diagnosis (1) Osteoarthritis of left knee: Status: Inactive DS: Summary Time Spent with Patient Time attestation: Total time managing care of this patient today ____ minutes. Discharge coordination time: Less than 30 minutes Quality: Safe Use of Opioids Does Pt have an Active Cancer Diagnosis on the Problem List?: No Quality: Stroke Does the patient have a stroke diagnosis?: No Physical Exam Vital Signs: Vital Signs: Last Vital Signs Temp 97.8 F 04/19/23 08:00 Pulse 76 04/19/23 09:27 Resp 16 04/19/23 08:00 BP 156/72 H 04/19/23 08:00 Pulse Ox 96 04/19/23 09:27 O2 Del Method Room Air 04/19/23 08:00 BMI result Body Mass Index 27.7 Const: General: cooperative, healthy appearing and no acute distress Resp: Effort & Inspection: normal respiratory effort and able to speak in complete sentences Cardio: Rate: regular rate Peripheral pulses: Peripheral pulses 2+ throughout GI: Palpation (GI): Soft to palpation Skin: General skin exam: no rashes or lesions noted Extrem: Other: * incision clean dry and intact. [place] intact. No erythema or joint effusion. Calf supple nontender. Neurovascularly intact. DS: Data Data Completed and Pending Pending studies at discharge: Pending at discharge 04/17/23 11:45 Surgical [PTH] Routine Labs on day of discharge: Laboratory Results - last 24 hr 04/19/23 06:55 WBC 10.5 RBC 3.74 L Hgb 11.1 L Hct 33.2 L MCV 88.8 MCH 29.7 MCHC 33.4 RDW 13.2 Plt Count 97 L D MPV 11.0 Immature Gran % (Auto) 0.5 H Neut % (Auto) 77.1 H Lymph % (Auto) 8.3 L Hamblen % (Auto) 12.3 H Eos % (Auto) 1.5 Baso % (Auto) 0.3 Lymph # (Auto) 0.9 L Hamblen # (Auto) 1.3 H Eos # (Auto) 0.2 Baso # (Auto) 0.0 Abs Immat Gran (auto) 0.05 H Absolute Neuts (auto) 8.1 Absolute Nucleated RBC 0.000 Nucleated RBC % (auto) 0.0 Sodium 139 Potassium 4.6 D Chloride 108 Carbon Dioxide 24 Anion Gap 12 BUN 21 H Creatinine 0.87 Estim Creat Clear Calc 67.3 Estimated GFR > 60 Fasting Glucose 137 H Calcium 8.8 Discharge Plan Discharge Patient Disposition: Home Health Service Referrals: Tristan LAN [Outside] - 1 Day (HOME PHYSICAL THERAPY) Leila Norman PA-C [Physician Solar Installation Helper] - 2 Weeks (05/03/23 1:30 [facility] Leila Norman PA-C) Discharge Medications: New celecoxib 200 mg Capsule 200 mg PO BID 30 Days Qty: 60 0RF acetaminophen 325 mg Tablet 650 mg PO Q6H PRN (Reason: Pain, Mild (Pain Scale 1-3)) 30 Days Qty: 240 0RF aspirin 325 mg Tablet 325 mg PO BID 42 Days Qty: 84 0RF docusate sodium 100 mg Capsule 100 mg PO BID 14 Days Qty: 28 0RF oxycodone 5 mg Tablet 5 mg PO Q4H PRN (Reason: Pain, Moderate(Pain Scale 4-6)) 7 Days Qty: 42 0RF Rx Instructions: Partial Fill upon patient request. Continued carvedilol 25 mg tablet 25 mg PO BID Qty: 180 3RF (DME[place] [facility] .MEDSUPPLY Qty: 1 0RF Rx Instructions: Folding Front wheeled walker amlodipine 5 mg tablet 10 mg PO DAILY atorvastatin 10 mg tablet 10 mg PO DAILY lisinopril 20 mg tablet 20 mg PO BID doxazosin 4 mg tablet 4 mg PO BEDTIME trazodone 50 mg tablet 25 mg PO BEDTIME PRN (Reason: Insomnia) multivitamin Tablet 1 tab PO DAILY furosemide 20 mg tablet 20 mg PO DAILY clindamycin HCl 300 mg capsule 600 mg PO ONCE Rx Instructions: prior to dental work Discontinued aspirin 81 mg tablet,delayed release (DR/EC) 81 mg PO DAILY meloxicam 15 mg tablet 15 mg PO DAILY PRN (Reason: Pain) Discharge Orders: Discharge Order (Routine); Ordered 04/19/23 Ordered By: Leila Norman Diet: Regular diet Activity on Discharge: Use cane or walker Activity Restrictions/Additional Instructions: Physical Therapy for Total knee arthroplasty: WBAT, gait training, ROM 0-12, quad strength * Limit stair climbing * No showering, no tub bath-keep dressing clean, dry and intact * No driving x6 weeks * Continue Aspirin twice a day x 6 weeks * Follow up with [facility] in 2 weeks: 05/03/23 13:30 [facility] Leila Norman PA-C Discharge Date/Time: 04/19/23 12:34
--- NOTE | 2023-04-19 11:17 | MHC.CM.PN ---
pt medically cleared for d/c home w/new hvna for home PT, pt's for transport
== END 2023-04-19 12:34 | disposition home health service (06) ==
LOC: HO.SSS 07:44 → HO.S3 14:15
PROVIDERS: Physician Assistant; PCP Family Medicine; Visit Provider Orthopaedic Surgery
PROC: (CPT 27447; principal; 2023-04-17 09:40)
DX: M17.12 Unilateral primary osteoarthritis, left knee (principal); M25.562 Pain in left knee; I25.10 Atherosclerotic heart disease of native coronary artery without angina pectoris; I11.0 Hypertensive heart disease with heart failure; I50.32 Chronic diastolic (congestive) heart failure; Z95.2 Presence of prosthetic heart valve; Z95.0 Presence of cardiac pacemaker; Z86.73 Personal history of transient ischemic attack (TIA), and cerebral infarction without residual deficits; Z85.828 Personal history of other malignant neoplasm of skin; Z79.82 Long term (current) use of aspirin; Z79.899 Other long term (current) drug therapy; Z88.0 Allergy status to penicillin; Z66 Do not resuscitate
CPT/HCPCS: 27447; 36415; 73560; 80048; 85014; 85018; 85025; 86850; 86900; 86901; 87640; 87641; 88305; 88311; 97110; 97116; 97161; C1713; C1776; J1100; J1170; J2250; J2371; J2405; J2795; J3010; J3370; J3371

== ENCOUNTER → 2023-04-17 07:43 | Outpatient (BNV) | payer MEDICARE, SELFPAY | PROVIDERS: PCP Family Medicine; Visit Provider Orthopaedic Surgery | DX: M17.12 Unilateral primary osteoarthritis, left knee (principal); Z96.652 Presence of left artificial knee joint | CPT/HCPCS: 27447; 99024; 99212 ==

== ENCOUNTER → 2023-04-17 07:43 | Outpatient (BNV) | payer MEDICARE, SELFPAY | PROVIDERS: PCP Family Medicine; Visit Provider Physician Assistant | DX: M17.12 Unilateral primary osteoarthritis, left knee (principal) | CPT/HCPCS: 99222 ==

== ENCOUNTER 2023-05-03 13:18 | Outpatient (AMB) | payer MEDICARE, SELFPAY ==
--- NOTE | 2023-05-03 13:25 | A.OFFVIS_ITS ---
Intake Intake Visit Reasons: PO LT TKA 04/17/23 NE Intake Note: Alfredito an 82 year old male who presents today for a post operative left TKA on 04/17/23. Patient reports he is doing well, states no concerns today. Allergies Penicillins [PENICILLINS] Adverse Reaction (Severe, Verified 05/03/23 13:29) GI upset / nausea & vomiting HPI PO LT TKA 04/17/23 NE HPI0 Details Alfredito Mojica is an 82-year-old male who presents today to the office for a post op left TKA. DOS: 04/17/23. 82-year-old male who returns to the [facility] today for post-op left TKA, 04/17/[address] Mcnally. He states he has no pain and is doing well overall. He has no concerns today. [facility] Medical History Atherosclerotic cardiovascular disease Basal cell carcinoma Bruises easily Chronic heart failure with preserved ejection fraction Diverticulitis Essential hypertension GERD (gastroesophageal reflux disease) Normally functioning cardiac pacemaker present Osteoarthritis Pseudoaneurysm TIA (transient ischemic attack) Surgical History Hx of tonsillectomy History of surgery History of esophagogastroduodenoscopy (EGD) H/O colonoscopy History of permanent cardiac pacemaker placement (~02/2019) History of cardiac catheterization (~01/30/18) Status post transcatheter aortic valve replacement (TAVR) using bioprosthesis (~02/2019) Family History Father CVD (cardiovascular disease) Mother No problems noted. Social History Household Members: Spouse Housing: House Are you a primary veterinarian laboratory animal care to a significant other at home: No Do you presently have visiting nurse or other home services: No Patient Tobacco Use Status: Never used Tobacco Second Hand Smoke Exposure: No Advance Directives Date on File: 04/17/23 service: No Current occupational status: retired Current occupation: rt handed Review of Systems Const All systems reviewed & are unremarkable except as noted in HPI and below Physical Exam Const General: cooperative and no acute distress Orientation/consciousness: patient oriented x3 Resp Effort & Inspection: normal respiratory effort and able to speak in complete sentences Cardio Peripheral pulses: Peripheral pulses 2+ throughout Neuro General: patient oriented x3 Extrem Other: Left knee Incision clean, dry and intact. ROM is -12 to 92 degrees. No redness or joint effusion. Calf supple, nontender. NVI. Assessment & Plan Assessment & Plan (1) History of total left knee replacement: Code(s): Z96.652 - Presence of left artificial knee joint Plan Malcom removed, steri strips applied. He will begin to transition to Outpatient PT to continue working on Gait training, ROM and quad strength. No driving for another 4 weeks. He will require ppx abx for dental procedures. He will f/u in 4 weeks, sooner if needed. Orders: Orders PT Evaluation and Treatment Today Z96.652 - Presence of left artificial knee joint Patient Instructions: Scribed for Leila Norman PA-C, by Silver Stauffer medical assistant float, on 05/03/2023. I, Leila Norman PA-C, have personally reviewed and agree with the information entered by the scribe. Coding Level of Care Code Global (55523) Diagnoses History of total left knee replacement Z96.652
== END 2023-05-03 15:06 | disposition home or self-care (01) ==
PROVIDERS: PCP Family Medicine; Visit Provider Physician Assistant
DX: Z96.652 Presence of left artificial knee joint (principal)
CPT/HCPCS: 99024

== ENCOUNTER → 2023-05-03 13:18 | Outpatient (BNVA) | payer MEDICARE, SELFPAY | PROVIDERS: PCP Family Medicine; Visit Provider Physician Assistant | DX: Z96.652 Presence of left artificial knee joint (principal) ==

== ENCOUNTER 2023-06-04 10:53 | Outpatient (AMB) | payer MEDICARE, SELFPAY ==
--- NOTE | 2023-06-04 10:59 | MHC.OFFVIS ---
Intake Intake Visit Reasons: PO LT TKA 04/17/23 NE Intake Note: Alfredito an 82 year old male presents today for a post operative left TKA, DOS 04/17/23 NE. Patient reports he is doing well, states yesterday he had twisted his knee and now has mild pain at the medial aspect of knee. He continues to work with PT. Allergies Penicillins [PENICILLINS] Adverse Reaction (Severe, Verified 06/04/23 10:59) GI upset / nausea & vomiting HPI PO LT TKA 04/17/23 NE HPI Details 82-year-old male who returns to the office today for post-op left TKA, 04/17/[address] Mcnally. He reports he twisted his knee yesterday and has been having mild pain at the medial aspect of his knee. He continues to work with physical therapy as instructed. He is doing well otherwise and has no concerns today. [facility] Medical History Atherosclerotic cardiovascular disease Basal cell carcinoma Bruises easily Chronic heart failure with preserved ejection fraction Diverticulitis Essential hypertension GERD (gastroesophageal reflux disease) Normally functioning cardiac pacemaker present Osteoarthritis Pseudoaneurysm TIA (transient ischemic attack) Surgical History Hx of tonsillectomy History of surgery History of esophagogastroduodenoscopy (EGD) H/O colonoscopy History of permanent cardiac pacemaker placement (~02/2019) History of cardiac catheterization (~01/30/18) Status post transcatheter aortic valve replacement (TAVR) using bioprosthesis (~02/2019) Family History Father CVD (cardiovascular disease) Mother No problems noted. Social History Household Members: Spouse Housing: House Are you a primary hearing care professional to a significant other at home: No Do you presently have visiting nurse or other home services: No Patient Tobacco Use Status: Never used Tobacco Second Hand Smoke Exposure: No Advance Directives Date on File: 04/17/23 service: No Current occupational status: retired Current occupation: rt handed Review of Systems Const All systems reviewed & are unremarkable except as noted in HPI and below Physical Exam Extrem Other: Left knee: Incision well healed. ROM 0-110 degrees. Calf supple, nontender. NVI. Assessment & Plan Assessment & Plan (1) History of total left knee replacement: Code(s): Z96.652 - Presence of left artificial knee joint Plan He will continue to work with physical therapy to maintain his ROM and improve quad strength. 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 He should be able to rest and sit when needed and he will see back in [address] Mcnally. sooner if needed. Medications: Refilled celecoxib 200 mg PO BID 60 caps 3RF Patient Instructions: Scribed for Leila Norman PA-C, by Marc Gutierrez medical practice assistant, on 06/04/2023 at 11:00 AM EST. I, Leila Norman PA-C, have personally reviewed and agree with the information entered by the scribe. Coding Level of Care Code Global (15854) Diagnoses History of total left knee replacement Z96.652
== END 2023-06-04 11:33 | disposition home or self-care (01) ==
PROVIDERS: PCP Family Medicine; Visit Provider Physician Assistant
DX: Z96.652 Presence of left artificial knee joint (principal)
CPT/HCPCS: 99024

== ENCOUNTER → 2023-06-04 10:53 | Outpatient (BNVA) | payer MEDICARE, SELFPAY | PROVIDERS: PCP Family Medicine; Visit Provider Physician Assistant ==

== ENCOUNTER 2023-06-29 09:00 | Outpatient (RCR) | payer MEDICARE, SELFPAY ==
--- NOTE | 2023-05-03 14:41 | MHC.PT.EP ---
[facility] [place] Office [place] Office [place] Office [address] Yanna Camacho [address] [phone] F: [phone] F: [phone] F: [phone] F: [phone] Physical Therapy Plan of Care Date of Evaluation: 05/03/23 Date of Surgery: 04/17/23 Diagnosis: S/P Lt TKA Assessment: 82 YO MALE REF TO PT S/P LEFT TKA ON 04/17/23. HE RESIDES W HIS IN A 1 LEVEL HOME AND IS CURRENTLY AMB W A CANE. OBJECTIVE FINDINGS: PO ROM DEFICITS LEFT KNEE, TIGHT HIP FLEXORS/ CALF MM, (+) STRENGTH DEFICITS IN LUMBOPELVIC/ PROX LEs, AND PAIN IN GENERALIZED LEFT KNEE. FUNCTIONALLY, THE Pt IS LIMITED WITH BED MOB/ SLEEPING, DECR STANDING ISSAC, ALTERED GAIT MECHANICS, STAIR MGMT, AND RESTRICTED WITH MORE PHYSICALLY DEMANDING ADLs. Pt WOULD BENEFIT FROM PT AT THIS TIME TO GUIDE HIM IN HIS POST-OP COURSE, DEV A PROGR HEP, ADDRESS PAIN MGMT, AND OBTAINING MAXIMAL LEVEL OF FUNCTIONAL INDEPENDENCE. Frequency and Duration: The patient will be seen 2 x WK x 10 WKS Short Term Goals: *Pt'S LEFT KNEE PAIN DECR TO 2-3/10 *Pt INCREASE Lt KNEE ROM -> 0* EXTEN AND PROGRESSIVELY TO 120* FLEX *INCR FLEXIB IN PSOAS/ CALF MM TO IMPROVE EFFICIENCY OF GAIT ON LEVEL AND STAIRS *REDUCE Lt LE EDEMA AND MONITOR/ ADDRESS SCAR MOB NEEDED Laboratory Aide Goals: *Pt INCR LE STRENGTH BY 1 GRADE IN 10 WKS *IMPROVE Lt LE PROPRIOCEPTION/ LUMBOPELVIC STABILITY *Pt INDEP W PROGRESSIVE HEP AND SELF-SX MGMT TECHN *Pt RESUME REG ADLs EVIDENT W IMPROVED LEFI SCORE BY 8-10 POINTS (AT EVAL ) IN 10 WKS Treatment Plan: Modalities to reduce pain, spasms and effusion. Manual therapy to restore motion and function. Therapeutic exercise to improve strength and flexibility. Neuromuscular re-education for posture and balance. Therapeutic activities to return to functional activities of daily living. Electronically signed by: NIMO YBARRA,PT Please sign and return to therapist. Thank you for your referral.
--- NOTE | 2023-06-29 09:49 | MHC.PT.DC ---
[facility] [place] Office [place] Office [place] Office [address] Jamila Camacho [address] [phone] F: [phone] F: [phone] F: [phone] F: [phone] Physical Therapy Discharge Report Diagnosis: S/P Lt TKA Date of Surgery: 04/17/23 Date of Evaluation: 05/03/23 Date of Discharge: 06/29/23 Treatments to Date: 13 Cancellations to Date: 0 No Shows to Date: 0 Discharge Status: Achieved Goals Improved Function Independent with HEP Discharge Summary: Alfredito arrived with no new complaints. He has completed 13 PT visits and has achieved all goals set for him. He is independent with all HEP as well. He is therefore being d/c from PT today. He was in agreement with the plan. Electronically signed by: Kathy Fowler PT DPT Please sign and return to therapist. Thank you for your referral.
== END 2023-06-29 09:49 | disposition home or self-care (01) ==
LOC: HO.PT 09:00
PROVIDERS: PCP Family Medicine; Visit Provider Physician Assistant
DX: Z96.652 Presence of left artificial knee joint (principal)
CPT/HCPCS: 97110; 97140; 97162; 97530

== ENCOUNTER 2023-07-16 10:58 | Outpatient (AMB) | payer MEDICARE, SELFPAY ==
--- NOTE | 2023-07-16 10:59 | MHC.OFFVIS ---
Intake Vital Signs 07/16/23 11:01 Height 5 ft 11 in Weight 181 lb BMI 25.2 Intake Visit Reasons: PO LT TKA 04/17/23 NE Intake Note: Alfredito an 82 year old male presents today for a post operative left TKA, DOS 04/17/23 NE. Patient reports that he is doing well overall. He notices some discoloration of the skin. Allergies Penicillins [PENICILLINS] Adverse Reaction (Severe, Verified 07/16/23 11:01) GI upset / nausea & vomiting HPI PO LT TKA 04/17/23 NE HPI Details Alfredito is an 82 year old man who presents ~3 months S/P left TKA. He says he is doing well, and has no complaints. [facility] Medical History (Updated 07/16/23 @ 11:36 by Mike Mcnally MD) Basal cell carcinoma Bruises easily Diverticulitis GERD (gastroesophageal reflux disease) TIA (transient ischemic attack) Osteoarthritis Osteoarthritis of left knee Pseudoaneurysm Essential hypertension Normally functioning cardiac pacemaker present Atherosclerotic cardiovascular disease Chronic heart failure with preserved ejection fraction Surgical History (Updated 07/16/23 @ 11:00 by Maru Keys CMA) History of total left knee replacement (04/17/23) Hx of tonsillectomy History of surgery History of esophagogastroduodenoscopy (EGD) H/O colonoscopy History of permanent cardiac pacemaker placement (~02/2019) History of cardiac catheterization (~01/30/18) Status post transcatheter aortic valve replacement (TAVR) using bioprosthesis (~02/2019) Family History Father CVD (cardiovascular disease) Mother No problems noted. Social History Household Members: Spouse Housing: House Are you a primary healthcare management consultant to a significant other at home: No Do you presently have visiting nurse or other home services: No Patient Tobacco Use Status: Never used Tobacco Second Hand Smoke Exposure: No Advance Directives Date on File: 04/17/23 service: No Current occupational status: retired Current occupation: rt handed Review of Systems Const All systems reviewed & are unremarkable except as noted in HPI and below Physical Exam Vital Signs: BMI result Body Mass Index 25.2 Const General: no acute distress, alert and awake Orientation/consciousness: patient oriented x3 HEENT Head: Yes normocephalic and Yes atraumatic Eyes EOM: EOMs intact bilaterally Resp Effort & Inspection: normal respiratory effort and able to speak in complete sentences Cardio Jugular venous distension: no JVD Skin General skin exam: turgor normal Rashes: no rashes Neuro General: patient oriented x3 Extrem Other: inc c/d/i 0- 110 Psych Appearance: grossly normal Affect: normal affect Attitude: cooperative Assessment & Plan Assessment & Plan (1) History of total left knee replacement: Onset Date: 04/17/23 Code(s): Z96.652 - Presence of left artificial knee joint Plan: Doing well. No complaints PT ordered for chronic right shoulder nolan nand clicking Orders: Orders PT Evaluation and Treatment Today M25.811 - Other specified joint disorders, right shoulder Coding Level of Care Code Global (93962) Diagnoses History of total left knee replacement Z96.652
[2023-07-16 11:01] VITALS: BMI 25.2
== END 2023-07-16 11:57 | disposition home or self-care (01) ==
PROVIDERS: PCP Family Medicine; Visit Provider Orthopaedic Surgery
DX: Z96.652 Presence of left artificial knee joint (principal)
CPT/HCPCS: 99024

== ENCOUNTER → 2023-07-16 10:58 | Outpatient (BNVA) | payer MEDICARE, SELFPAY | PROVIDERS: PCP Family Medicine; Visit Provider Orthopaedic Surgery | DX: Z47.1 Aftercare following joint replacement surgery (principal); Z96.652 Presence of left artificial knee joint | CPT/HCPCS: 99212 ==

== ENCOUNTER → 2023-08-12 23:59 | Outpatient (BNV) | payer MEDICARE, SELFPAY ==
--- NOTE | 2023-08-14 15:45 | A.OFFVIS_ITS ---
Intake Intake Visit Reasons: Remote Device Check- [employer] Allergies Penicillins [PENICILLINS] Adverse Reaction (Severe, Verified 07/16/23 11:01) GI upset / nausea & vomiting PFSH Medical History (Updated 07/16/23 @ 11:36 by Mike Mcnally MD) Basal cell carcinoma Bruises easily Diverticulitis GERD (gastroesophageal reflux disease) TIA (transient ischemic attack) Osteoarthritis Osteoarthritis of left knee Pseudoaneurysm Essential hypertension Normally functioning cardiac pacemaker present Atherosclerotic cardiovascular disease Chronic heart failure with preserved ejection fraction Surgical History (Updated 07/16/23 @ 11:00 by Maru Keys [facility]) History of total left knee replacement (04/17/23) Hx of tonsillectomy History of surgery History of esophagogastroduodenoscopy (EGD) H/O colonoscopy History of permanent cardiac pacemaker placement (~02/2019) History of cardiac catheterization (~01/30/18) Status post transcatheter aortic valve replacement (TAVR) using bioprosthesis (~02/2019) Family History Father CVD (cardiovascular disease) Mother No problems noted. 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 Overall normal device function. [id number] Cardiac Device Interrogation, pacemaker Procedure code (CPT) selection complete Assessment & Plan Assessment & Plan (1) Chronic heart failure with preserved ejection fraction: Code(s): I50.32 - Chronic diastolic (congestive) heart failure Plan x Coding Level of Care Code Procedure Only Diagnoses Chronic heart failure with preserved ejection fraction I50.32 CPT Codes Cardiac Device Check - Cardiac Device 12: [id number] Cardiac Device Interrogation, pacemaker ([id number])
== END ==
PROVIDERS: PCP Family Medicine; Visit Provider Internal Medicine
DX: I50.32 Chronic diastolic (congestive) heart failure (principal); Z95.0 Presence of cardiac pacemaker
CPT/HCPCS: 93294

== ENCOUNTER 2023-09-11 07:05 | Outpatient (REF) | payer MEDICARE, SELFPAY ==
[2023-09-11 08:09] LABS: Estimated Average Glucose 105 mg/dL; Hemoglobin A1c % 5.3 % (<6.0)
[2023-09-11 08:17] LABS: Anion Gap 14 (12-20); Blood Urea Nitrogen 27 mg/dL (9-16); Carbon Dioxide 22 mmol/L (22-29); Chloride 111 mmol/L (96-108); Cholesterol 127 mg/dL (<200); Estimated Glomerular Filt Rate > 60; Glucose Fasting 108 mg/dL (60-99); HDL Cholesterol 45 mg/dL (>40); LDL Cholesterol Calculated 74 mg/dL (<100); Potassium 4.7 mmol/L (3.3-5.1); Sodium 142 mmol/L (135-145); Triglycerides 43 mg/dL (<150)
== END 2023-09-11 07:06 | disposition home or self-care (01) ==
LOC: HO.LAB 07:05
PROVIDERS: PCP Family Medicine; Visit Provider Family Medicine
DX: I10 Essential (primary) hypertension (principal); E78.00 Pure hypercholesterolemia, unspecified
CPT/HCPCS: 36415; 80051; 80061; 82565; 82947; 83036; 84520

== ENCOUNTER 2023-09-21 10:00 | Outpatient (RCR) | payer MEDICARE, SELFPAY ==
--- NOTE | 2023-08-29 15:38 | MHC.PT.EP ---
[facility] [place] Office [place] Office [place] Office [address] Yanna Camacho [address] [phone] F: [phone] F: [phone] F: [phone] F: [phone] Physical Therapy Plan of Care Date of Evaluation: 08/29/23 Date of Surgery: Diagnosis: CLICKING Rt SHOULDER Assessment: 82 YO MALE REF TO PT W 6 MONTH H/O Rt CLICKING SHOULDER-> HE IS Rt HAND DOMINANT. THE Pt HAS DECR POSTURAL AWARENESS, LIMTIED CERV AND SH AROM, POSTERIOR Rt SH PAIN,TIGHT PECT , AND RC (ABD)/ SCAP MM WEAKNESS. FUNCTIONALLY, THE Pt HAS DIFFIC LIFTING/ CARRYING/ REACHING OVERHEAD AND POSTERIORLY W HIS Rt UE DUE TO PAIN. HE WOULD BENEFIT FROM GENTLE, PROGRESSIVE ROM, POSTURE, PAIN MGMT TECHN, AND SHOULDER /SCAP STAB AND STRENGTHENING EXER. Frequency and Duration: The patient will be seen 2 x WK x 5 WKS Short Term Goals: *DECR Rt SH PAIN TO 1-2/10 W REG ADLs *Pt INDEP W SELF CORRECT POSTURE W VARIED TASKS *INITIATE HEP TO ADDRESS ROM, SH STAB, SCAP MM ACTIV Intermediate Goals: *Pt INDEP W PROGR HEP ADDRESSING SOFT TISSUE TENSION *IMPROVED Rt POST RC/ SCAP STRENGTH EVIDENT W FUNCTIONAL TASKS *Pt RESUME REG ADLs EVIDENT W Pt'S SPADI SCORE IMPROVEMENT BY 8-10 POINTS (AT EVAL 36/130) Treatment Plan: Modalities to reduce pain, spasms and effusion. Manual therapy to restore motion and function. Therapeutic exercise to improve strength and flexibility. Neuromuscular re-education for posture and balance. Therapeutic activities to return to functional activities of daily living. Electronically signed by: NIMO YBARRA,PT Please sign and return to therapist. Thank you for your referral.
--- NOTE | 2023-09-21 10:54 | MHC.PT.DC ---
[facility] [place] Office [place] Office [place] Office [address] Yanna Camacho [address] [phone] F: [phone] F: [phone] F: [phone] F: [phone] Physical Therapy Discharge Report Diagnosis: CLICKING Rt SHOULDER Date of Surgery: Date of Evaluation: 08/29/23 Date of Discharge: Treatments to Date: 7 Cancellations to Date: 0 No Shows to Date: 0 Discharge Status: Discharge Summary: MR SANTANA HAS MET HIS PT GOALS AT THIS TIME, ULTIMATELY, RESUMING REG ADLs/ YARDWORK; HE HAS MADE GREAT GAINS W ROM AND POST RC/SCAP STRENGTH AND STABILITY. HIS SPADI SCORES AT EVAL: 36/130 AND TODAY AT D/C: 19/130. THE Pt IS PLEASED W HIS PROGRESS AND FEELS READY TO CONT W HIS HEP AT THIS TIME. Electronically signed by: Please sign and return to therapist. Thank you for your referral.
== END 2023-09-21 10:58 | disposition home or self-care (01) ==
LOC: HO.PT 10:00
PROVIDERS: PCP Family Medicine; Visit Provider Orthopaedic Surgery
DX: M25.811 Other specified joint disorders, right shoulder (principal)
CPT/HCPCS: 97110; 97161; 97530

== ENCOUNTER → 2023-10-03 09:39 | Outpatient (REF) | payer MEDICARE, SELFPAY ==
--- NOTE | 2023-10-03 09:41 | CA_ITS ---
Transthoracic Echocardiogram Amended Patient (Last, First, Middle): Alfredito Mojica F Gender: Male Date of : 1940 Age: 82 Procedure Date: 10/03/2023 Procedure Type: Transthoracic Echocardiogram Location: OP Height: 180.34 cm Weight: 79.38 kg BSA: 1.99 m2 Heart Rate: bpm BP: 137 / 72 mmHg Real Estate Utilization Officer: LEONEL Referring MD: Colten Rasmussen MD Track Grinder: Jose Arreola MD Symptoms: Z95.3 - Presence of xenogenic heart valve Study Quality: Adequate ECG Rhythm: Ventriculary paced rhythm Conclusions: - 1. Normal LV ejection fraction 55-60% with grade 2 diastolic dysfunction 2. Mild biatrial enlargement 3. Normally function bioprosthetic aortic valve with mean gradient of 11 mmHg 4. Upper limits of normal RV systolic pressure 5. Upper limits of normal ascending aortic size 6. No gross pericardial effusion Findings Left Ventricle Normal left ventricular size, thickness, and systolic function. The visually estimated ejection fraction is between 55-60%. There is paradoxical septal motion consistent with a right ventricular pacemaker. Spectral Doppler is indicative of a pseudonormal filling pattern. Elevated left atrial and left ventricular end-diastolic pressures. Evidence suggests grade II (moderate) diastolic dysfunction. There is mild septal asymmetric hypertrophy. Peak GLS is -17.2%, which is borderline low Right Ventricle Mildly increased right ventricular cavity size. There is normal right ventricular systolic function. There is a pacemaker wire seen in the right ventricle. Atria Mild biatrial enlargement. There is no evidence of interatrial shunt. A pacemaker wire is identified in the right atrium. Aortic Valve A bioprosthetic aortic valve is present. The prosthetic aortic valve appears to be functioning normally. The mean gradient is 11 mmHg. There is no aortic valve regurgitation. Mitral Valve There is mild anterior and moderate posterior mitral leaflet thickening. There is mild mitral annular calcification. There is trace mitral valve regurgitation. There is no mitral valve stenosis. Pulmonic Valve The pulmonic valve is likely normal. There is trace pulmonic valve regurgitation. Tricuspid Valve Normal tricuspid valve structure. There is mild tricuspid valve regurgitation. The right ventricular systolic pressure is normal. Normal right atrial pressure. There is no evidence of pulmonary hypertension. Great Vessels The pulmonary artery was not well visualized. Small plaque is seen in the sino tubular ridge. Venous The inferior vena cava is normal in size and collapses greater than 50% with inspiration. Pericardium/Pleural There is no evidence of pericardial effusion. Measurements 2D Linear Measurements IVSd: 1.39 0.6-0.9/0.6-1.0 cm LVIDd: 4.80 3.9-5.3/4.2-5.9 cm LVIDd Index: 2.41 2.4-3.2/2.2-3.1 cm/m2 LVIDs: 3.43 2.0-3.6 cm LVPWd: 1.01 0.7-1.1 cm LA Diam: 3.70 2.7-3.8/3.0-4.0 cm LAIDs Index: 1.86 1.5-2.3 cm/m2 LV Mass: 273.16 67-162/88-224 g LV Mass Index: 137.27 43-95/49-115 g/m2 LVOT Diam: 2.50 3.0+(-)1.3 cm 2D Volumes LA Vol: 39.70 2D Systolic Function EF 4C: 56.60 >55% EF 2C: 52.80 >55% EF BiP: 55.60 >55% Mitral Valve MV VTI: 0.52 MV Pk Aneesh: 1.65 MV Mn Aneesh: 0.85 MV Pk Grad: 11.00 MV Mn Grad: 3.00 MV Pk E: 1.33 MV PK A: 0.89 MV Decel Time: 222.00 E/A: 1.50 E'Lateral: 11.10 E'Medial: 5.55 E/E' Med: 24.00 E/E' Lat: 12.00 PHT: 65.00 MVA PHT: 3.38 MVA Continuity: 2.62 Decel [place]: 5.98 Aortic Valve AoV Pk Aneesh: 2.22 AoV Mn Aneesh: 1.58 AoV VTI: 0.56 AoV Pk Grad: 20.00 Aov Mn Grad: 11.00 JERALD Cont.VTI: 2.46 LVOT LVOT Pk Aneesh: 1.06 LVOT Mn Aneesh: 0.76 LVOT VTI: 0.28 LVOT Pk Grad: 4.00 LVOT Mn Grad: 3.00 LVOT Diam: 2.50 LVOT Area: 4.91 Diastolic Function MV Pk E: 1.33 MV Pk A: 0.89 E/A: 1.50 E'Medial: 5.55 E/E' Med: 24.00 E' Laterial: 11.10 E/E' Lat: 12.00 Right Ventricle TAPSE (mm): 26.70 TVS' Aneesh: 12.60 Tricuspid Valve TR Pk Aneesh: 2.86 TR Pk Grad: 33.00 RA Press: 3.00 RVSP: 36.00 Great Vessels Aorta Ao Asc: 3.50 2.1-3.4 cm Updated in Other Vendor System with Status of Final Jose Arreola MD electronically signed on 10/04/2023 11:35:35 AM with status of Final
== END ==
LOC: HO.CARD 09:39
PROVIDERS: PCP Family Medicine; Visit Provider Internal Medicine
DX: Z95.3 Presence of xenogenic heart valve (principal)
CPT/HCPCS: 93306; 93356

== ENCOUNTER → 2023-10-03 09:41 | Outpatient (BNV) | payer MEDICARE, SELFPAY | PROVIDERS: PCP Family Medicine; Visit Provider Internal Medicine Cardiovascular Disease | DX: I36.1 Nonrheumatic tricuspid (valve) insufficiency (principal); I34.81 Nonrheumatic mitral (valve) annulus calcification; Z95.3 Presence of xenogenic heart valve | CPT/HCPCS: 93306 ==

== ENCOUNTER 2023-10-17 09:00 | Outpatient (AMB) | payer MEDICARE, SELFPAY ==
[2023-10-17 09:13] VITALS: BP 156/76; PULSE 69; BMI 25.8
--- NOTE | 2023-10-17 09:13 | MHC.OFFVIS ---
Intake Vital Signs 10/17/23 09:13 Height 5 ft 11 in Weight 185 lb 3.013 oz BMI 25.8 BP 156/76 H Blood Pressure Location Lt brachial Position Sitting Pulse 69 Intake Visit Reasons: 1 year follow after echo Intake Note: 1 year follow up Chief Mechanical Officer Required: No Accompanied by: Spouse Allergies Penicillins [PENICILLINS] Adverse Reaction (Severe, Verified 10/17/23 09:16) GI upset / nausea & vomiting Medication List - Last Reconciled 10/17/23 by Colten Rasmussen MD amlodipine 10 mg (2 x 5 mg) PO DAILY 90 days aspirin 325 mg PO BID 42 days atorvastatin 10 mg PO DAILY carvedilol 25 mg PO BID celecoxib 200 mg PO BID clindamycin HCl 600 mg PO ONCE doxazosin 4 mg PO BEDTIME furosemide 20 mg PO DAILY lisinopril 20 mg PO BID multivitamin 1 tab PO DAILY trazodone 25 mg PO BEDTIME PRN walker Folding Front wheeled walker HPI HPI Comments History of Present Illness Details Alfredito returns for follow-up regarding various issues including TAVR, chronic diastolic heart failure, hypertension. He also has a permanent pacemaker. Overall, he states he feels fine. No specific cardiac complaints. [facility] Medical History (Updated 10/17/23 @ 10:07 by Colten Rasmussen MD) Basal cell carcinoma Bruises easily Diverticulitis GERD (gastroesophageal reflux disease) TIA (transient ischemic attack) Osteoarthritis Osteoarthritis of left knee Pseudoaneurysm Essential hypertension Normally functioning cardiac pacemaker present Atherosclerotic cardiovascular disease Chronic heart failure with preserved ejection fraction Surgical History History of total left knee replacement (04/17/23) Hx of tonsillectomy History of surgery History of esophagogastroduodenoscopy (EGD) H/O colonoscopy History of permanent cardiac pacemaker placement (~02/2019) History of cardiac catheterization (~01/30/18) Status post transcatheter aortic valve replacement (TAVR) using bioprosthesis (~02/2019) Family History Father CVD (cardiovascular disease) Mother No problems noted. Social History Household Members: Spouse Housing: House Are you a primary body care manager to a significant other at home: No Do you presently have visiting nurse or other home services: No Patient Tobacco Use Status: Never used Tobacco Second Hand Smoke Exposure: No Advance Directives Date on File: 04/17/23 service: No Current occupational status: retired Current occupation: rt handed Review of Systems Const Denies weakness ENT Denies dizziness Card Denies chest pain, Denies chest pain with activity, Denies syncope, Denies rapid heart rate, Denies pedal edema, Denies edema, Denies leg edema, Denies lightheadedness, Denies palpitations, Denies dyspnea, Denies dyspnea on exertion and Denies orthopnea Resp Denies cough, Denies dyspnea and Denies dyspnea on exertion GI Denies hematochezia and Denies change in stool character Musc Denies abnormal gait, Denies muscle cramps, Denies muscle weakness, Denies numbness, Denies radiating pain into limb and Denies tingling Neuro Denies abnormal gait, Denies dizziness, Denies syncope, Denies numbness, Denies tingling and Denies weakness Endo Denies palpitations Physical Exam Vital Signs: Last Vital Signs Pulse 69 10/17/23 09:13 BP 156/76 H 10/17/23 09:13 BMI result Body Mass Index 25.8 Const General: comfortable and no acute distress Orientation/consciousness: patient oriented x3 HEENT Other: Unremarkable Head: Yes normal to inspection Neck Neck: Yes normal visual inspection Chest Chest palpation & inspection: normal inspection of the chest Resp Auscultation: clear to auscultation bilaterally Cardio Palpation: normal PMI Heart sounds: S1 normal heart sound present, S2 normal heart sound present, no gallops, Murmur heart sound present systolic II/ and no rubs GI Palpation (GI): Soft to palpation Back/Spine/Pelvis Other: unremarkable Skin General skin exam: no rashes or lesions noted Neuro General: patient oriented x3 Extrem General: Yes normal to inspection Psych Mental Status: mental status grossly normal Assessment & Plan Assessment & Plan (1) Status post transcatheter aortic valve replacement (TAVR) using bioprosthesis: Onset Date: ~02/2019 Comment: 2019 Code(s): Z95.3 - Presence of xenogenic heart valve Plan: Low-dose aspirin. Normally functioning bioprosthetic aortic valve on echocardiogram. (2) Chronic heart failure with preserved ejection fraction: Code(s): I50.32 - Chronic diastolic (congestive) heart failure Plan: Stable on diuretics. (3) Atherosclerotic cardiovascular disease: Code(s): I25.10 - Atherosclerotic heart disease of [place] coronary artery without angina pectoris Plan: Cardiac catheterization in the past with mild disease diffusely. No hemodynamically significant lesions. Continue aspirin and statins. (4) Essential hypertension: Code(s): I10 - Essential (primary) hypertension Plan: Blood pressure is elevated during office visits but home readings are only the 130s. Hence no changes. Advised him to send the diary by patient portal. (5) Normally functioning cardiac pacemaker present: Code(s): Z95.0 - Presence of cardiac pacemaker Plan: Being followed remotely. Office check with next visit. Coding Level of Care Code Est Pt Level 4 (50324) Diagnoses Status post transcatheter aortic valve replacement (TAVR) using bioprosthesis Z95.3 Chronic heart failure with preserved ejection fraction I50.32 Atherosclerotic cardiovascular disease I25.10 Essential hypertension I10 Normally functioning cardiac pacemaker present Z95.0
== END 2023-10-17 09:38 | disposition home or self-care (01) ==
PROVIDERS: PCP Family Medicine; Visit Provider Internal Medicine
DX: Z95.3 Presence of xenogenic heart valve (principal); I50.32 Chronic diastolic (congestive) heart failure; I25.10 Atherosclerotic heart disease of native coronary artery without angina pectoris; I10 Essential (primary) hypertension; Z95.0 Presence of cardiac pacemaker
CPT/HCPCS: 99214

== ENCOUNTER → 2023-10-17 09:00 | Outpatient (BNVA) | payer MEDICARE, SELFPAY | PROVIDERS: PCP Family Medicine; Visit Provider Internal Medicine | DX: I11.0 Hypertensive heart disease with heart failure (principal); I50.32 Chronic diastolic (congestive) heart failure; I25.10 Atherosclerotic heart disease of native coronary artery without angina pectoris; Z95.3 Presence of xenogenic heart valve; Z95.0 Presence of cardiac pacemaker | CPT/HCPCS: 99212 ==

== ENCOUNTER → 2023-11-11 23:59 | Outpatient (BNV) | payer MEDICARE, SELFPAY ==
--- NOTE | 2023-11-13 12:21 | MHC.OFFVIS ---
Intake Intake Visit Reasons: Remote Device Check- [employer] Allergies Penicillins [PENICILLINS] Adverse Reaction (Severe, Verified 10/17/23 09:16) GI upset / nausea & vomiting [facility] Medical History (Updated 11/13/23 @ 12:24 by Colten Rasmussen MD) Basal cell carcinoma Bruises easily Diverticulitis GERD (gastroesophageal reflux disease) TIA (transient ischemic attack) Osteoarthritis Osteoarthritis of left knee Pseudoaneurysm Essential hypertension Normally functioning cardiac pacemaker present Atherosclerotic cardiovascular disease Chronic heart failure with preserved ejection fraction Surgical History History of total left knee replacement (04/17/23) Hx of tonsillectomy History of surgery History of esophagogastroduodenoscopy (EGD) H/O colonoscopy History of permanent cardiac pacemaker placement (~02/2019) History of cardiac catheterization (~01/30/18) Status post transcatheter aortic valve replacement (TAVR) using bioprosthesis (~02/2019) Family History Father CVD (cardiovascular disease) Mother No problems noted. Social History Household Members: Spouse Housing: House Are you a primary clinical care leader to a significant other at home: No Do you presently have visiting nurse or other home services: No Patient Tobacco Use Status: Never used Tobacco Second Hand Smoke Exposure: No Advance Directives Date on File: 04/17/23 service: No Current occupational status: retired Current occupation: rt handed Office Procedures Cardiac Device Check Cardiac Device Check Details: Date of service- 11/11/2023 ; Battery life >9 years; normal lead parameters; AP 8.5%; [employer] 78%; very brief NSVT. Overall normal device function. [id number] Cardiac Device Interrogation, pacemaker Procedure code (CPT) selection complete Assessment & Plan Assessment & Plan (1) Heart block: Code(s): I45.9 - Conduction disorder, unspecified Plan x Coding Level of Care Code Procedure Only Diagnoses Heart block I45.9 CPT Codes Cardiac Device Check - Cardiac Device 12: [id number] Cardiac Device Interrogation, pacemaker ([id number])
== END ==
PROVIDERS: PCP Family Medicine; Visit Provider Internal Medicine
DX: I45.9 Conduction disorder, unspecified (principal); Z95.0 Presence of cardiac pacemaker
CPT/HCPCS: 93294

== ENCOUNTER → 2024-02-10 23:59 | Outpatient (BNV) | payer MEDICARE, SELFPAY ==
--- NOTE | 2024-02-17 11:25 | MHC.OFFVIS ---
Intake Visit Reasons: Remote Device Check- [employer] Allergies Penicillins [PENICILLINS] Adverse Reaction (Severe, Verified 10/17/23 09:16) GI upset / nausea & vomiting [facility] Medical History (Updated 11/13/23 @ 12:24 by Colten Rasmussen MD) Basal cell carcinoma Bruises easily Diverticulitis GERD (gastroesophageal reflux disease) TIA (transient ischemic attack) Osteoarthritis Osteoarthritis of left knee Pseudoaneurysm Essential hypertension Normally functioning cardiac pacemaker present Atherosclerotic cardiovascular disease Chronic heart failure with preserved ejection fraction Surgical History History of total left knee replacement (04/17/23) Hx of tonsillectomy History of surgery History of esophagogastroduodenoscopy (EGD) H/O colonoscopy History of permanent cardiac pacemaker placement (~02/2019) History of cardiac catheterization (~01/30/18) Status post transcatheter aortic valve replacement (TAVR) using bioprosthesis (~02/2019) Family History Father CVD (cardiovascular disease) Mother No problems noted. Social History Household Members: Spouse Housing: House Are you a primary career and transition teacher to a significant other at home: No Do you presently have visiting nurse or other home services: No Patient Tobacco Use Status: Never used Tobacco Second Hand Smoke Exposure: No Advance Directives Date on File: 04/17/23 service: No Current occupational status: retired Current occupation: rt handed Office Procedures Cardiac Device Check Cardiac Device Check Details: Date of service- 02/10/2024 ; Battery life >9 years; normal lead parameters; AP 10%; [employer] 76%; very brief NSVT. Overall normal device function. [id number] Cardiac Device Interrogation, pacemaker Procedure code (CPT) selection complete Assessment & Plan Assessment & Plan (1) Heart block: Code(s): I45.9 - Conduction disorder, unspecified Category: Medical Plan x Coding Level of Care Code Procedure Only Diagnoses Heart block I45.9 CPT Codes Cardiac Device Check - Cardiac Device 12: [id number] Cardiac Device Interrogation, pacemaker ([id number])
== END ==
PROVIDERS: PCP Family Medicine; Visit Provider Internal Medicine
DX: I45.9 Conduction disorder, unspecified (principal); Z95.0 Presence of cardiac pacemaker
CPT/HCPCS: 93294

== ENCOUNTER 2024-03-10 07:51 | Outpatient (REF) | payer MEDICARE, SELFPAY ==
[2024-03-10 09:18] LABS: Alanine Aminotransferase 12 U/L (0-40); Anion Gap 11 (12-20); Aspartate Amino Transferase 16 U/L (5-37); Blood Urea Nitrogen 22 mg/dL (9-16); Carbon Dioxide 24 mmol/L (22-29); Chloride 111 mmol/L (96-108); Estimated Glomerular Filt Rate > 60; Glucose Fasting 109 mg/dL (60-99); Potassium 4.1 mmol/L (3.3-5.1); Sodium 142 mmol/L (135-145)
== END 2024-03-10 07:52 | disposition home or self-care (01) ==
LOC: HO.LAB 07:51
PROVIDERS: PCP Family Medicine; Visit Provider Family Medicine
DX: I10 Essential (primary) hypertension (principal); E78.00 Pure hypercholesterolemia, unspecified; R73.9 Hyperglycemia, unspecified; Z79.899 Other long term (current) drug therapy
CPT/HCPCS: 36415; 80051; 82550; 82565; 82947; 84450; 84460; 84520

== ENCOUNTER 2024-04-21 13:04 | Outpatient (AMB) | payer MEDICARE, SELFPAY ==
--- NOTE | 2024-04-21 13:19 | A.OFFVIS_ITS ---
Vital Signs 04/21/24 13:20 Height 5 ft 11 in Weight 182 lb BMI 25.4 BP 138/68 Blood Pressure Location Lt brachial Position Sitting Pulse 55 Pulse Source Monitor Intake Visit Reasons: 6 mth f/up w/ medtronic ck Allergies Penicillins [PENICILLINS] Adverse Reaction (Severe, Verified 10/17/23 09:16) GI upset / nausea & vomiting Medication List - Last Reconciled 04/21/24 by Colten Rasmussen MD amlodipine 10 mg (2 x 5 mg) PO DAILY 90 days aspirin (Stefany Low Dose Aspirin) 81 mg PO DAILY atorvastatin 10 mg PO DAILY carvedilol 25 mg PO BID clindamycin HCl 600 mg PO ONCE furosemide 20 mg PO DAILY lisinopril 20 mg PO BID multivitamin 1 tab PO DAILY trazodone 25 mg PO BEDTIME PRN walker Folding Front wheeled walker HPI Comments Details: Alfredito returns for follow-up regarding various issues including TAVR, chronic diastolic heart failure, hypertension. He also has a permanent pacemaker. Main issue is hearing loss but otherwise no clear-cut cardiac symptoms like angina or shortness of breath. He seems to be getting along well. Because of the hearing loss there is some instability in walking according to . [facility] Medical History (Updated 11/13/23 @ 12:24 by Colten Rasmussen MD) Basal cell carcinoma Bruises easily Diverticulitis GERD (gastroesophageal reflux disease) TIA (transient ischemic attack) Osteoarthritis Osteoarthritis of left knee Pseudoaneurysm Essential hypertension Normally functioning cardiac pacemaker present Atherosclerotic cardiovascular disease Chronic heart failure with preserved ejection fraction Surgical History History of total left knee replacement (04/17/23) Hx of tonsillectomy History of surgery History of esophagogastroduodenoscopy (EGD) H/O colonoscopy History of permanent cardiac pacemaker placement (~02/2019) History of cardiac catheterization (~01/30/18) Status post transcatheter aortic valve replacement (TAVR) using bioprosthesis (~02/2019) Family History Father CVD (cardiovascular disease) Mother No problems noted. Social History Household Members: Spouse Housing: House Are you a primary health and social care teacher to a significant other at home: No Do you presently have visiting nurse or other home services: No Patient Tobacco Use Status: Never used Tobacco Second Hand Smoke Exposure: No Advance Directives Date on File: 04/17/23 service: No Current occupational status: retired Current occupation: rt handed Review of Systems Const Denies weakness ENT Denies dizziness Card Denies chest pain, Denies chest pain with activity, Denies syncope, Denies rapid heart rate, Denies pedal edema, Denies edema, Denies leg edema, Denies lighthea dedness, Denies palpitations, Denies dyspnea, Denies dyspnea on exertion and Denies orthopnea Resp Denies cough, Denies dyspnea and Denies dyspnea on exertion GI Denies hematochezia and Denies change in stool character Musc Denies abnormal gait, Denies muscle cramps, Denies muscle weakness, Denies numbness, Denies radiating pain into limb and Denies tingling Neuro Denies abnormal gait, Denies dizziness, Denies syncope, Denies numbness, Denies tingling and Denies weakness Endo Denies palpitations Physical Exam Vital Signs: Last Vital Signs Pulse 55 04/21/24 13:20 BP 138/68 04/21/24 13:20 BMI result Body Mass Index 25.4 Const General: comfortable and no acute distress Orientation/consciousness: patient oriented x3 HEENT Other: Unremarkable Head: Yes normal to inspection Neck Neck: Yes normal visual inspection Chest Chest palpation & inspection: normal inspection of the chest Resp Auscultation: clear to auscultation bilaterally Cardio Palpation: normal PMI Heart sounds: S1 normal heart sound present, S2 normal heart sound present, no gallops, Murmur heart sound present systolic I/ and at the right sternal border and no rubs GI Palpation (GI): Soft to palpation Back/Spine/Pelvis Other: unremarkable Skin General skin exam: no rashes or lesions noted Neuro General: patient oriented x3 Extrem General: Yes normal to inspection Psych Mental Status: mental status grossly normal Office Procedures Cardiac Device Check Cardiac Device Check Details: Pacemaker interrogated today. Dual-chamber device, programmed AAI-DDD mode. Battery status 8.9 years. Normal lead parameters. Atrial pacing 8.2%. Ventricular pacing 87.2%. Very brief NSVT episodes. Overall, normal device function. [id number] Cardiac Device Check, pacemaker dual lead Procedure code (CPT) selection complete EKG Details: EKG with atrial sensed, ventricular paced rhythm at 55/Min. [id number], Complete Assessment & Plan Assessment & Plan (1) Status post transcatheter aortic valve replacement (TAVR) using bioprosthesis: Onset Date: ~02/2019 Comment: 2019 Code(s): Z95.3 - Presence of xenogenic heart valve Category: Surgical Plan: Continue aspirin. Normally functioning bioprosthetic aortic valve on echocardiogram. Infective endocarditis prophylaxis per protocol. (2) Chronic heart failure with preserved ejection fraction: Code(s): I50.32 - Chronic diastolic (congestive) heart failure Category: Medical Plan: Remains on diuretics. Stable. (3) Atherosclerotic cardiovascular disease: Code(s): I25.10 - Atherosclerotic heart disease of [place] coronary artery without angina pectoris Category: Medical Plan: Cardiac catheterization in the past with mild disease diffusely. No hemodynamically significant lesions. Continue aspirin and statins. (4) Essential hypertension: Code(s): I10 - Essential (primary) hypertension Category: Medical Plan: Home blood pressures mostly okay. Rare readings are in the 140s. No changes. He is already on several medications. (5) Normally functioning cardiac pacemaker present: Code(s): Z95.0 - Presence of cardiac pacemaker Category: Medical Plan: Checked today and with normal function. May follow remotely. Orders: Orders CA echo transthoracic complete 6 Months Z95.3 - Presence of xenogenic heart valve Coding Level of Care Code Est Pt Level 4 (39423) Diagnoses Status post transcatheter aortic valve replacement (TAVR) using bioprosthesis Z95.3 Chronic heart failure with preserved ejection fraction I50.32 Atherosclerotic cardiovascular disease I25.10 Essential hypertension I10 Normally functioning cardiac pacemaker present Z95.0 CPT Codes Cardiac Device Check - Cardiac Device 2: [id number] Cardiac Device Check, pacemaker dual lead ([id number]) EKG - CPT: 42377-Ndmugtvirfcrzfcij, Complete ([id number])
[2024-04-21 13:20] VITALS: BP 138/68; PULSE 55; BMI 25.4
== END 2024-04-21 13:40 | disposition home or self-care (01) ==
PROVIDERS: PCP Family Medicine; Visit Provider Internal Medicine
DX: Z95.3 Presence of xenogenic heart valve (principal); I50.32 Chronic diastolic (congestive) heart failure; I25.10 Atherosclerotic heart disease of native coronary artery without angina pectoris; I10 Essential (primary) hypertension; Z95.0 Presence of cardiac pacemaker
CPT/HCPCS: 93010; 93280; 99214

== ENCOUNTER → 2024-04-21 13:04 | Outpatient (BNVA) | payer MEDICARE, SELFPAY | PROVIDERS: PCP Family Medicine; Visit Provider Internal Medicine | DX: Z45.018 Encounter for adjustment and management of other part of cardiac pacemaker (principal); I11.0 Hypertensive heart disease with heart failure; I50.32 Chronic diastolic (congestive) heart failure; I25.10 Atherosclerotic heart disease of native coronary artery without angina pectoris; Z95.3 Presence of xenogenic heart valve | CPT/HCPCS: 93005; 93280; 99212 ==

== ENCOUNTER → 2024-05-11 23:59 | Outpatient (BNV) | payer MEDICARE, SELFPAY ==
--- NOTE | 2024-05-12 14:53 | MHC.OFFVIS ---
Intake Visit Reasons: Remote device check- [employer] Allergies Penicillins [PENICILLINS] Adverse Reaction (Severe, Verified 10/17/23 09:16) GI upset / nausea & vomiting [facility] Medical History (Updated 05/12/24 @ 14:55 by Colten Rasmussen MD) Basal cell carcinoma Bruises easily Diverticulitis GERD (gastroesophageal reflux disease) TIA (transient ischemic attack) Osteoarthritis Osteoarthritis of left knee Pseudoaneurysm Essential hypertension Normally functioning cardiac pacemaker present Atherosclerotic cardiovascular disease Chronic heart failure with preserved ejection fraction Surgical History History of total left knee replacement (04/17/23) Hx of tonsillectomy History of surgery History of esophagogastroduodenoscopy (EGD) H/O colonoscopy History of permanent cardiac pacemaker placement (~02/2019) History of cardiac catheterization (~01/30/18) Status post transcatheter aortic valve replacement (TAVR) using bioprosthesis (~02/2019) Family History Father CVD (cardiovascular disease) Mother No problems noted. 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 Overall normal device function. [id number] Cardiac Device Interrogation, pacemaker Procedure code (CPT) selection complete Assessment & Plan Assessment & Plan (1) Pacemaker: Code(s): Z95.0 - Presence of cardiac pacemaker Category: Medical (2) Heart block: Code(s): I45.9 - Conduction disorder, unspecified Category: Medical Plan x Coding Level of Care Code Procedure Only Diagnoses Pacemaker Z95.0 Heart block I45.9 CPT Codes Cardiac Device Check - Cardiac Device 12: [id number] Cardiac Device Interrogation, pacemaker ([id number])
== END ==
PROVIDERS: PCP Family Medicine; Visit Provider Internal Medicine
DX: I45.9 Conduction disorder, unspecified (principal); Z95.0 Presence of cardiac pacemaker
CPT/HCPCS: 93294

== ENCOUNTER 2024-07-23 09:07 | Outpatient (REF) | payer MEDICARE, SELFPAY ==
--- NOTE | ~2024-07-23 | XR_ITS ---
EXAMINATION: XR CERVICAL SPINE CLINICAL INFORMATION: NECK PAIN--OA COMPARISON: None available. TECHNIQUE: 6 views of the cervical spine, inclusive of flexion and extension views, were obtained. FINDINGS: Prevertebral soft tissues normal. There is disc space narrowing and marginal spurring observed at C6-7 but no fracture or destructive process. There is slight encroachment on the left C6-7 neural foramen. The lateral masses of C1 and odontoid are intact. XR/XR cervical spine 5V IMPRESSION: Degenerative change but no fracture seen. Electronically signed by: Pramod Martinez MD 07/23/2024 12:59 PM [facility]
== END 2024-07-23 09:08 | disposition home or self-care (01) ==
LOC: HO.XRAY 09:07
PROVIDERS: PCP Family Medicine; Visit Provider Family Medicine
DX: M54.2 Cervicalgia (principal); M19.90 Unspecified osteoarthritis, unspecified site
CPT/HCPCS: 72050

== ENCOUNTER → 2024-08-10 23:59 | Outpatient (BNV) | payer MEDICARE, SELFPAY ==
--- NOTE | 2024-08-16 12:41 | MHC.OFFVIS ---
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 Overall normal device function. [id number] Cardiac Device Interrogation, pacemaker Procedure code (CPT) selection complete Assessment & Plan Assessment & Plan (1) Pacemaker: Code(s): Z95.0 - Presence of cardiac pacemaker Category: Medical (2) Heart block: Code(s): I45.9 - Conduction disorder, unspecified Category: Medical (3) Status post transcatheter aortic valve replacement (TAVR) using bioprosthesis: Onset Date: ~02/2019 Comment: 2018 Code(s): Z95.3 - Presence of xenogenic heart valve Category: Surgical Plan x Coding Level of Care Code Procedure Only Diagnoses Pacemaker Z95.0 Heart block I45.9 Status post transcatheter aortic valve replacement (TAVR) using bioprosthesis Z95.3 CPT Codes Cardiac Device Check - Cardiac Device 12: [id number] Cardiac Device Interrogation, pacemaker ([id number])
== END ==
PROVIDERS: PCP Family Medicine; Visit Provider Internal Medicine
DX: I45.9 Conduction disorder, unspecified (principal); Z95.3 Presence of xenogenic heart valve; Z95.0 Presence of cardiac pacemaker
CPT/HCPCS: 93294

== ENCOUNTER 2024-09-11 08:21 | Outpatient (REF) | payer MEDICARE, SELFPAY ==
[2024-09-11 11:01] LABS: Alanine Aminotransferase 10 U/L (0-40); Anion Gap 11 (12-20); Aspartate Amino Transferase 21 U/L (5-37); Blood Urea Nitrogen 21 mg/dL (9-16); Carbon Dioxide 25 mmol/L (22-29); Chloride 108 mmol/L (96-108); Cholesterol 156 mg/dL (<200); Estimated Glomerular Filt Rate > 60; Glucose Fasting 119 mg/dL (60-99); HDL Cholesterol 44 mg/dL (>40); LDL Cholesterol Calculated 98 mg/dL (<100); Potassium 4.2 mmol/L (3.3-5.1); Sodium 140 mmol/L (135-145); Triglycerides 74 mg/dL (<150)
--- OUTSIDE RECORDS SUMMARY | 2024-09-11 11:12 | XMS_ITS | Clinical Summary ---
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 04/07/2024 Active atorvastatin (LIPITOR) 10 MG tablet Take 10 mg by mouth nightly. 06/03/2024 Active carvedilol (COREG) 25 MG tablet 1 tablet by Mouth/Oral Cavity route every 12 hours. 04/07/2024 Active hydrALAZINE (APRESOLINE) 25 MG tablet 1 tablet by Mouth/Oral Cavity route every 12 hours. 06/17/2024 Active lisinopril (PRINIVIL,ZeSTRIL) 20 MG tablet 1 tablet by Mouth/Oral Cavity route every 12 hours. 06/03/2024 Active ofloxacin (FLOXIN) 0.3 % otic solution INSTILL 4 DROPS INTO AFFECTED EAR TWICE A DAY FOR 7 DAYS 06/11/2024 Active Active Problems Problem Noted Date Diagnosed Date Acquired hammer toe of right foot 07/14/2024 Aortic stenosis 07/14/2024 CHF NYHA class II 07/14/2024 Chronic diastolic CHF (congestive heart failure) 07/14/2024 Diverticulosis 07/14/2024 QUINONES (dyspnea on exertion) 07/14/2024 Heart murmur 07/14/2024 HLD (hyperlipidemia) 07/14/2024 Malignant neoplasm of skin 07/14/2024 Pedal edema 07/14/2024 Primary localized osteoarthrosis of ankle and fo ot 07/14/2024 Right bundle branch block (RBBB) 07/14/2024 Tinea unguium 07/14/2024 Unspecified atherosclerosis of [place] arteries of extremities, bilateral legs 07/14/2024 TIA (transient ischemic attack) 07/07/2024 Vascular disorder 07/07/2024 Heart disease 07/07/2024 Dizziness 07/07/2024 Hearing loss 07/07/2024 Encounters Date Type Department Care Team Description 07/15/2024 10:45 AM EST Office Visit [facility] [address] [phone] Conor Contreras MD Mixed conductive and sensorineural hearing loss of right ear with restricted hearing of left ear (Primary Dx); Right chronic serous otitis media; Chronic dysfunction of right eustachian tube 06/25/2024 Telephone [facility] [address] [phone] Conor Contreras MD Results Request from Last 3 Months Immunizations Name Administration Dates Next Due Covid-19 mRNA Primary Series Vaccine - Moderna 0.5 mL Full Dose 10/28/2020 Influenza, Trivalent (FLUARI X, AFLURIA, FLULAVAL, FLUZONE) Preservative Free IM 06/27/2021 Social History Tobacco Use Types Packs/Day Years Used Date Smoking Tobacco: Never Passive Smoke Exposure: Never Smokeless Tobacco: Never Alcohol Use Standard Drinks/Week Comments Never 0 (1 standard drink = 0.6 oz pur e alcohol) Sex and Gender Information Value Date Recorded Sex Assigned at Not on file Gender Identity Not on file Sexual Orientation Not on file Last Filed Vital Signs Vital Sign Reading Time Taken Comments Blood Pressure - - Pulse - - Temperature - - Respiratory Rate - - Oxygen Saturation - - Inhaled Oxygen Concentration - - Weight 82.6 kg (182 lb) 07/15/2024 10:43 AM EST Height 180.3 cm (5' 11 ) 07/15/2024 10:43 AM EST Body Mass Index 25.38 07/15/2024 10:43 AM EST Plan of Treatment Upcoming Encounters Date Type Department Care Team (Late st Contact Info) Description 09/25/2024 11:00 AM EST Clinical Support [facility] [address] [phone] Crystal Conley Au.D [address] [place] [address] 09/25/2024 11:30 AM EST Office Visit [facility] [address] [phone] Conor Contreras MD [address] [place] [address] Health Maintenance Due Date Last Done Comments DTaP/Tdap/Td Vaccines (1 - Tdap) 1959 Pneumococcal Vaccines 50+ (1 of 2 - PCV) 1959 Zoster (Shingles) Vaccine (1 of 2) 1959 RSV Vaccine 60 years and old er and Patients (1 - 1-dose 75+ series) 2013 COVID-19 Vaccine (2 - Modern a risk series) 11/25/2020 10/28/2020 Influenza Vaccine 03/13/2024 06/27/2021 Hepatitis B Vaccines Aged Out No long er eligible based on patient's age to complete this topic Care Teams Local 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
--- OUTSIDE RECORDS SUMMARY | 2024-09-11 11:12 | XMS_ITS | Patient Health Record ---
[facility] Address [address] [place] [address] Care Team Providers Care Educational Institution President Name Role Phone Fred Chowdary MD Primary Care Provider Sal Mckenzie Unavailable [phone] Allergies Allergen (clinical drug ingredient) Drug/Non Drug Allergy documented on EMR Reaction Allergy Type Onset Date Status Penicillin nausea Drug Allergy Active Vaccine product containing Streptococcus pneumoniae antigen (medicinal product) Pneumococcal Vaccines Unknown Drug Allergy Active Reason For Referral No Information Medications Medication SIG (Take, Route, Frequency, Duration) Notes Start Date End Date Status amLODIPine Besylate 10 MG 1 tablet Orally Once a day for 30 day(s) Active Norvasc Not-Taking Atorvastatin Calcium 10 MG 1 tablet Orally Once a day for 30 day(s) Active Crestor Not-Taking ZyrTEC Active Coreg 12.5 MG as directed Orally Not-Taking Lisinopril Active Trazodone & Diet Manage Prod Active Furosemide 20 MG 1 tablet Orally Once a day for 30 day(s) Active Clindamycin HCl PRN for Dental Appts Active Doxazosin Mesylate 4 MG 1 tablet Orally Once a day for 30 day(s) Active Baby Aspirin Active Flomax 0.4 MG 1 capsule 30 minutes after the same meal each day Orally Once a day for 30 day(s) Not-Taking Clopidogrel Bisulfate 75 MG 1 tablet Orally Once a day for 30 day(s) Active Lipitor 10 MG 1 tablet Orally Once a day for 30 day(s) Not-Taking Immunizations Vaccine Route Administration Date Status Comme nts COVID-19 Moderna Vaccine Unknown 10/28/2020 Administere d 1st 09/22/2020 Influenza Unknown 06/27/2021 Administered Social History Tobacco Use: Social History Observation Description Date Details (start date - stop date) Former Smoker NA - NA Tobacco Use/Smoking Question Answer Notes Are you a: former smoker Additional Findings: Tobacco Non-User Current no n-smoker Alcohol Screen Question Answer Notes Did you have a drink containing alcohol in the p ast year? No Points 0 Interpretation Negative Tobacco use other than smoking: Question Answer Notes Are you an other tobacco user? No Problems Problem Type SNOMED Code ICD Code Onset Dates Problem Status W/U Status Risk Notes Problem Tinea unguium (615954861) Tinea unguium (B35.1) Active confirmed Problem Unspecified atherosclerosis of [place] arteries of extremities, bilateral legs (I70.203) Active confirmed Problem Localized, primary osteoarthritis of the ankle and/or foot (426816970) Primary osteoarthritis, right ankle and foot (M19.071) Active confirmed Problem Acquired hammer toe of right foot ([id number] ) Other hammer toe(s) (acquired), right foot (M20.41) Active confirmed Plan Of Treatment Pending Test Test Name Order Date X ray : Foot, right 3V 10/18/2017 X ray : Foot, right 3V 05/05/2020 [id number] NAIL, 6 OR MORE 10/18/2017 [id number] NAIL, 6 OR MORE 05/01/2011 12583-[id number] NAIL, 6 OR MORE 07/19/2011 31138-ROFHENQ NAIL, 6 OR MORE 01/25/2012 44810-GZTOXMP NAIL, 6 OR MORE 04/22/2012 24039-BDJDBGE NAIL, 6 OR MORE 07/22/2012 26639-ZSEDPNU NAIL, 6 OR MORE 10/21/2012 48105-GYWDQGE NAIL, 6 OR MORE 04/03/2013 64866-HMKKFPX NAIL, 6 OR MORE 05/29/2013 08582-GAWYZFQ NAIL, 6 OR MORE 08/25/2013 19709-FQVRECG NAIL, 6 OR MORE 11/26/2013 53112-KUJZDHK NAIL, 6 OR MORE 03/04/2014 27101-XIVFPWH NAIL, 6 OR MORE 06/03/2014 53329-NRVBEVX NAIL, 1-5 05/26/2015 29349-WHVZTRU NAIL, 1-5 11/11/2015 77337-HFQUCWG NAIL, 1-5 03/15/2016 75318-HFZKTOW NAIL, 1-5 09/27/2016 78665-JMDDFUO NAIL, 08-1703/28/2017 58655-Mfua Destruction, 08-2603/28/2017 29147-Rcnt Destruction, 08-2610/18/2017 71875-Xujt Destruction, 08-2604/09/2014 72362-Thch Destruction, 08-2609/27/2016 29157-Iztt Destruction, 08-2603/15/2016 01637-Zdjb Destruction, 08-2611/11/2015 60679-Ldcd Destruction, 08-2606/03/2014 04932-Rfzc Destruction, 08-2605/26/2015 31441-Tqgx Destruction, 08-2603/04/2014 26191-Mzgw Destruction, 08-2611/26/2013 21088-Rnac Destruction, 08-2608/25/2013 77436-Odrl Destruction, 08-2605/29/2013 28784-Npzn Destruction, 08-2604/03/2013 88605-Kcfb Destruction, 08-2610/21/2012 13633-Waal Destruction, 08-2607/22/2012 86767-Colg Destruction, 08-2604/22/2012 01545-Pqnn Destruction, 08-2601/25/2012 60007-Dnqs Destruction, 08-2607/19/2011 38407-Rtgd Destruction, 08-2605/01/2011 18310, J0702- INJECT or DRAIN, JOINT/BUR SA 11/12/2017 95014-COOX SKIN LESIONS, 2 TO 4 02/09/20 22 52113, F1544-VXCXG/INJECT, JOINT/BURSA 0 11/12/2017 51647, Q0311-BVPIW/INJECT, JOINT/BURSA 0 05/05/2020 15516, J0702- Neuroma/Injection 05/29/20 13 93283, J0702- Neuroma/Injection 03/04/20 14 64676, J0702- Neuroma/Injection 05/26/20 15 Insurance Providers Payer Name Payer Address Payer Phone Subscriber Number Group Number Insured Name Patient Relationship to Insured Coverage Start Date Coverage End Date Medicare National [employer] [address] [place] [address] [id number] Alfredito Mojica Self - patient is the insured [facility] [address] [place] [address] [id number] Alfredito Mojica Self - patient is the insured Medical (General) History Medical History History ICD Code mumps measles high blood pressure diverticulitis Arthritis Surgical History Surgery Date(Month/Year) tonsillectomy child cardiac pacemeker 03/10/2019 aortic valve replacement 03/03/2019 Hospitalization History Reason Date(Month/Year) Physical Therapy for pulled right bicep at [facility] 08/2014 [facility] Valve and Pacemak er- 7 day stay 02/2019
--- OUTSIDE RECORDS SUMMARY | 2024-09-11 11:14 | XMS_ITS ---
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 EncounterDiagnosisAct [facility] Right chronic serous otitis media active EncounterDiagnosisAct [facility] Right bundle branch block (RBBB) active 2024-07-14 ProblemAct [facility] Pedal edema active 2024-07-14 ProblemAct [facility] Heart murmur active 2024-07-14 ProblemAct [facility] QUINONES (dyspnea on exertion) active 2024-07-14 ProblemAct [facility] Chronic dysfunction of right eustachian tube active EncounterDiagnosisAct [facility] CHF NYHA class II active 2024-07-14 ProblemAct [facility] Chronic diastolic CHF (congestive heart failure) active 2024-07-14 ProblemAct [facility] Aortic stenosis active 2024-07-14 ProblemAct [facility] Unspecified atherosclerosis of [place] arteries of extremities, bilateral legs active 2024-07-14 ProblemAct [facility] Hearing loss active 2024-07-07 ProblemAct [facility] Vascular disorder active 2024-07-07 ProblemAct [facility] Acquired hammer toe of right foot active 2024-07-14 ProblemAct [facility] Immunizations Vaccine Date Source Lot Number Status Influenza, Trivalent (FLUARI X, AFLURIA, FLULAVAL, FLUZONE) Preservative Free IM 06/27/2021 [facility] completed Covid-19 mRNA Primary Series Vaccine - Moderna 0.5 mL Full Dose 10/28/2020 CCT completed
== END 2024-09-11 08:22 | disposition home or self-care (01) ==
LOC: HO.10HDL 08:21
PROVIDERS: Visit Provider Family Medicine
DX: I10 Essential (primary) hypertension (principal); R73.9 Hyperglycemia, unspecified; E78.00 Pure hypercholesterolemia, unspecified
CPT/HCPCS: 36415; 80051; 80061; 82550; 82565; 82947; 84450; 84460; 84520

== ENCOUNTER → 2024-10-14 10:00 | Outpatient (REF) | payer MEDICARE, SELFPAY ==
--- NOTE | 2024-10-14 10:03 | CA_ITS ---
Transthoracic Echocardiogram Patient (Last, First, Middle): Alfredtio Mojica F Gender: Male Date of : 1940 Age: 83 Procedure Date: 10/14/2024 Procedure Type: Transthoracic Echocardiogram Location: OP Height: 180.34 cm Weight: 80.74 kg BSA: 2.01 m2 Heart Rate: bpm BP: 138 / 67 mmHg Tentmaker: LEONEL Referring MD: Colten Rasmussen MD Renewable [employer] Broker: Jose Arreola MD Symptoms: Z95.3 - Presence of xenogenic heart valve Study Quality: Adequate ECG Rhythm: Ventriculary paced rhythm Conclusions: - 1. Normal LV ejection fraction 55-60% with mild LVH with grade 2 diastolic dysfunction 2. Mildly to moderately dilated left atrium 3. Normally function bioprosthetic aortic valve with mean gradient of 12 mm Hg 4. Normal RV systolic pressure 5. No gross pericardial effusion Findings Left Ventricle Normal left ventricular size and systolic function. There is mildly increased left ventricular wall thickness. The visually estimated ejection fraction is between 55-60%. There is paradoxical septal motion consistent with a right ventricular pacemaker. Spectral Doppler is indicative of a pseudonormal filling pattern. E/E prime ratio is >15, consistent with elevated filling pressures. Evidence suggests grade II (moderate) diastolic dysfunction. Right Ventricle Normal right ventricular cavity size and systolic function. There is a pacemaker wire seen in the right ventricle. Atria The left atrium is moderately dilated. There is no evidence of interatrial shunt. The right atrium is normal in size. A pacemaker wire is identified in the right atrium. Aortic Valve A bioprosthetic aortic valve is present. The prosthetic aortic valve appears to be functioning normally. The mean gradient is 12 mmHg. There is no aortic valve regurgitation. Mitral Valve There is mild anterior and moderate posterior mitral leaflet thickening. There is moderate mitral annular calcification. There is no mitral valve regurgitation. There is no mitral valve stenosis. Pulmonic Valve The pulmonic valve is likely normal. There is trace pulmonic valve regurgitation. Tricuspid Valve Normal tricuspid valve structure. There is mild tricuspid valve regurgitation. The right ventricular systolic pressure is normal. The right ventricular systolic pressure is 34 mmHg. Normal right atrial pressure. There is no evidence of pulmonary hypertension. Great Vessels The aorta was not well visualized. The pulmonary artery was not well visualized. Venous The inferior vena cava is normal in size and collapses greater than 50% with inspiration. Pericardium/Pleural There is no evidence of pericardial effusion. Prior Study Comparison No significant change compared to prior study dated: 10/03/2023. Measurements 2D Linear Measurements IVSd: 1.20 0.6-0.9/0.6-1.0 cm LVIDd: 4.81 3.9-5.3/4.2-5.9 cm LVIDd Index: 2.39 2.4-3.2/2.2-3.1 cm/m2 LVIDs: 3.44 2.0-3.6 cm LVPWd: 1.10 0.7-1.1 cm LA Diam: 3.60 2.7-3.8/3.0-4.0 cm LAIDs Index: 1.79 1.5-2.3 cm/m2 LV Mass: 258.07 67-162/88-224 g LV Mass Index: 128.39 43-95/49-115 g/m2 LVOT Diam: 2.50 3.0+(-)1.3 cm 2D Systolic Function EF 4C: 63.00 >55% EF 2C: 60.30 >55% EF BiP: 59.50 >55% Mitral Valve MV VTI: 0.61 MV Pk Aneesh: 1.35 MV Mn Aneesh: 0.80 MV Pk Grad: 7.00 MV Mn Grad: 3.00 MV Pk E: 1.35 MV PK A: 1.14 MV Decel Time: 260.00 E/A: 1.20 E'Lateral: 7.62 E'Medial: 5.33 E/E' Med: 25.30 E/E' Lat: 17.70 PHT: 76.00 MVA PHT: 2.89 MVA Continuity: 2.16 Decel [place]: 5.18 Aortic Valve AoV Pk Aneesh: 2.29 AoV Mn Aneesh: 1.63 AoV VTI: 0.63 AoV Pk Grad: 21.00 Aov Mn Grad: 12.00 JERALD Cont.VTI: 2.09 LVOT LVOT Pk Aneesh: 0.97 LVOT Mn Aneesh: 0.76 LVOT VTI: 0.27 LVOT Pk Grad: 4.00 LVOT Mn Grad: 2.00 LVOT Diam: 2.50 LVOT Area: 4.91 Diastolic Function MV Pk E: 1.35 MV Pk A: 1.14 E/A: 1.20 E'Medial: 5.33 E/E' Med: 25.30 E' Laterial: 7.62 E/E' Lat: 17.70 Right Ventricle TAPSE (mm): 21.90 TVS' Aneesh: 10.00 Tricuspid Valve TR Pk Aneesh: 2.77 TR Pk Grad: 31.00 RA Press: 3.00 RVSP: 34.00 Great Vessels Aorta Ao Asc: 3.60 2.1-3.4 cm Updated in Other Vendor System with Status of Final Jose Arreola MD electronically signed on 10/15/2024 5:54:48 PM with status of Final
--- OUTSIDE RECORDS SUMMARY | 2024-10-14 11:55 | XMS_ITS | Encounter Summary ---
Author Organization [facility] Address [address] [place] [address] Care Team Providers Care Pondman Name Role Phone Fred Chowadry MD Primary Care Provider [phone] Reason for Visit * Reason Comments Hearing Loss Encounter Details Date Type Department Care Team (Late st Contact Info) Description 09/25/2024 11:30 AM EST Office Visit [facility] [address] [address] Conor Contreras MD [address] [place] [address] Right chronic serous otitis media (Primary Dx); Chronic dysfunction of right eustachian tube; Sensorineural hearing loss, bilateral Social History Tobacco Use Types Packs/Day Years Used Date Smoking Tobacco: Never Passive Smoke Exposure: Never Smokeless Tobacco: Never Tobacco Cessation:Counseling Given: Not Answered Alcohol Use Standard Drinks/Week Comments Never 0 (1 standard drink = 0.6 oz pur e alcohol) Sex and Gender Information Value Date Recorded Sex Assigned at Not on file Gender Identity Not on file Sexual Orientation Not on file documented as of this encounter Last Filed Vital Signs Vital Sign Reading Time Taken Comments Blood Pressure - - Pulse - - Temperature - - Respiratory Rate - - Oxygen Saturation - - Inhaled Oxygen Concentration - - Weight 82.6 kg (182 lb) 09/25/2024 11:24 AM EST Height 180.3 cm (5' 11 ) 09/25/2024 11:24 AM EST Body Mass Index 25.38 09/25/2024 11:24 AM EST documented in this encounter Progress Notes * Conor Contreras MD - 09/25/2024 11:30 AM EST Images from the original note were not included. [address] [facility], [place] [address] Loc: [phone] Encounter Date: 09/25/2024 Chief Complaint Patient presents with Hearing Loss 1. Right chronic serous otitis media 2. Chronic dysfunction of right eustachian tube 3. Sensorineural hearing loss, bilateral ASSESSMENT AND PLAN Alfredito Mojica is an 83-year-old male presenting for follow-up on right chronic serous otitis media and eustachian tube dysfunction status post myringotomy and ear tube placement on 07/15/2024. He reports slight improvement in right ear pressure but still experiences occasional muffling. Audiogram today shows mild sloping to severe sensorineural hearing loss in both ears. Tympanogram Type A on theleft, no seal on the right due to tympanostomy tube. Examination reveals no drainage, no fluid behind the ear, and no signs of inflammation. The right ear tube is in a good place and functioning properly. Discussed potential benefits of hearing aids due to difficulty hearing in noisy environments. - Follow up in 6 months for routine check of ear tube. - Avoid using Debrox in the right ear. - Consider hearing aids evaluation with insurance executive. - Use Kleenex finger sweep for ear cleaning if needed. Avoid Qtips HISTORY OF PRESENT ILLNESS Alfredito reports slight improvement in right ear pressure since the last visit but still experiences occasional muffling. He denies any drainage from the right ear. He notes that positional changes, such as bending his head down, sometimes cause a sensation of pressure that eventually goes away. He isinterested in exploring hearing aids due to difficulty hearing in noisy environments like board meetings and restaurants. PHYSICAL EXAM The patient was in no acute distress and breathing comfortably on exam. Examination of the ears, nose, oral cavity, oropharynx, and neck was completed and found to be within normal limits with the following notable exceptions and findings highlighted here: - Left ear: No drainage, tympanic membrane intact, Type A tympanogram, no fluid, no inflammation. - Right ear: Tympanostomy tube in place, no drainage, no fluid, no inflammation. DIAGNOSTIC TESTING REVIEWED Audiogram shows mild sloping to severe sensorineural hearing loss in both ears. Tympanogram Type A on the left and no seal on the right due to the tympanostomy tube. PAST MEDICAL HISTORY Past Medical History: Diagnosis Date Cardiac disease HTN (hypertension) 07/07/2024 Stroke (HCC) TIA (transient ischemic attack) 07/07/2024 Past Surgical History: Procedure Laterality Date AORTIC VALVE REPLACEMENT IMPLANT PACEMAKER REPLACEMENT TOTAL KNEE Left History reviewed. No pertinent family history. Social History Tobacco Use Smoking status: Never Passive exposure: Never Smokeless tobacco: Never Substance Use Topics Alcohol use: Never Drug use: Never MEDICATIONS Current Outpatient Medications: amLODIPine (NORVASC) 5 MG tablet, Take 10 mg by mouth., Disp: , Rfl: atorvastatin (LIPITOR) 10 MG tablet, Take 10 mg by mouth nightly., Disp: , Rfl: carvedilol (COREG) 25 MG tablet, 1 tablet by Mouth/Oral Cavity route every 12 hours., Disp: , Rfl: hydrALAZINE (APRESOLINE) 25 MG tablet, 1 tablet by Mouth/Oral Cavity route every 12 hours., Disp: ,Rfl: lisinopril (PRINIVIL,ZeSTRIL) 20 MG tablet, 1 tablet by Mouth/Oral Cavity route every 12 hours., Disp: , Rfl: ofloxacin (FLOXIN) 0.3 % otic solution, INSTILL 4 DROPS INTO AFFECTED EAR TWICE A DAY FOR 7 DAYS, Disp: , Rfl: ALLERGIES Allergies Allergen Reactions Penicillins Unknown/Patient and Family Unable to Define Pneumococcal Vaccines Unknown/Patient and Family Unable to Define VISIT ORDERS 1. Right chronic serous otitis media 2. Chronic dysfunction of right eustachian tube 3. Sensorineural hearing loss, bilateral Conor Contreras MD documented in this encounter Plan of Treatment Upcoming Encounters Date Type Department Care Team (Late st Contact Info) Description 10/17/2024 9:45 AM EST Clinical Support [facility] [address] [address] Crystal Conley Au.D [address] [place] [phone] 03/17/2025 10:30 AM EDT Office Visit [facility] [address] [address] Conor Contreras MD [address] [place] [address] documented as of this encounter Visit Diagnoses Diagnosis Right chronic serous otitis media- Primary Simple or unspecified chronic serous otitis media Chronic dysfunction of right eustachian tube Sensorineural hearing loss, bilateral documented in this encounter Care Teams Pondman Relationship Specialty Start Date End Date Fred Chowdary MD [address] [place] [address] [place] [address] [place] [address] PCP - General Internal Medicine 07/15/24 documented as of this encounter
--- OUTSIDE RECORDS SUMMARY | 2024-10-14 11:55 | XMS_ITS | Patient Health Record ---
Author Organization [facility] Address [address] [place] [address] Care Team Providers Care Cloth Pattern Maker Name Role Phone Fred Chowdary MD Primary Care Provider Sal Mckenzie Unavailable [phone] Allergies Allergen (clinical drug ingredient) Drug/Non Drug [...] W/U Status Risk Notes Problem Tinea unguium (741848707) Tinea unguium (B35.1) Active confirmed Problem Unspecified atherosclerosis of [place] arteries of extremities, bilateral legs (I70.203) Active confirmed Problem Localized, primary osteoarthritis of the ankle and/or foot (663605522) Primary osteoarthritis, right ankle and foot (M19.071) Active confirmed Problem Acquired hammer toe of right foot (6872828292764009 ) Other hammer toe(s) (acquired), right foot (M20.41) Active confirmed Plan Of Treatment Pending Test Test Name Order Date X ray : Foot, right 3V 10/18/2017 X ray : Foot, right 3V 05/05/2020 17742-[id number] NAIL, 6 OR MORE 10/18/2017 11374-KSVHDYY NAIL, 6 OR MORE 05/01/2011 47006-TFWEXQN NAIL, 6 OR MORE 07/19/2011 17810-WFKQUNJ NAIL, 6 OR MORE 01/25/2012 51832-ARCVTLD NAIL, 6 OR MORE 04/22/2012 95914-IWPDXKS NAIL, 6 OR MORE 07/22/2012 03595-IBRJJCS NAIL, 6 OR MORE 10/21/2012 96648-VRMDZTS NAIL, 6 OR MORE 04/03/2013 87991-DAJUZVV NAIL, 6 OR MORE 05/29/2013 03673-LKMOVDU NAIL, 6 OR MORE 08/25/2013 47783-WZTRNFR NAIL, 6 OR MORE 11/26/2013 85419-RCGDQJH NAIL, 6 OR MORE 03/04/2014 89023-VWFUQHE NAIL, 6 OR MORE 06/03/2014 28764-DVRENYW NAIL, 1-5 05/26/2015 25860-ROZQGKY NAIL, 1-5 11/11/2015 75542-GCNNIEM NAIL, 1-5 03/15/2016 80963-LALPQOO NAIL, 1-5 09/27/2016 98197-WIMDQQA NAIL, 08-1703/28/2017 38585-Bfun Destruction, 08-2603/28/2017 68721-Lqda Destruction, 08-2610/18/2017 08645-Muyk Destruction, 08-2604/09/2014 53612-Yzkz Destruction, 08-2609/27/2016 92664-Xjyk Destruction, 08-2603/15/2016 41832-Isol Destruction, 08-2611/11/2015 38699-Bzwt Destruction, 08-2606/03/2014 18045-Rvqg Destruction, 08-2605/26/2015 66209-Mtcr Destruction, 08-2603/04/2014 45920-Vihp Destruction, 08-2611/26/2013 86958-Cmlm Destruction, 08-2608/25/2013 61108-Njdl Destruction, 08-2605/29/2013 31216-Egku Destruction, 08-2604/03/2013 88991-Xnnv Destruction, 08-2610/21/2012 50705-Sfwk Destruction, 08-2607/22/2012 61861-Twsd Destruction, 08-2604/22/2012 30656-Uzux Destruction, 08-2601/25/2012 20197-Yizl Destruction, 08-2607/19/2011 96077-Ndla Destruction, 08-2605/01/2011 05158, J0702- INJECT or DRAIN, JOINT/BUR SA 11/12/2017 25463-YQLC SKIN LESIONS, 2 TO 4 02/09/20 22 68029, P3258-HCUCY/INJECT, JOINT/BURSA 0 11/12/2017 30637, Z6036-EBMZM/INJECT, JOINT/BURSA 0 05/05/2020 93732, J0702- Neuroma/Injection 05/29/20 13 72828, J0702- Neuroma/Injection 03/04/20 14 78694, J0702- Neuroma/Injection 05/26/20 15 Insurance Providers Payer Name Payer Address Payer Phone Subscriber Number Group Number Insured Name Patient Relationship to Insured Coverage Start Date Coverage End Date Medicare National [employer] [address] [place] [address] [id number] Alfredito Mojica Self - patient is the insured [employer] [facility] [address] [place] [address] [id number] Alfredito Mojica Self - patient is the insured Medical (General) History Medical History History ICD Code mumps measles high blood pressure diverticulitis Arthritis Surgical History Surgery Date(Month/Year) tonsillectomy child cardiac pacemeker 03/10/2019 aortic valve replacement 03/03/2019 Hospitalization History Reason Date(Month/Year) Physical Therapy for pulled right bicep at [facility] 08/2014 [facility] Valve and Pacemak er- 7 day stay 02/2019
--- OUTSIDE RECORDS SUMMARY | 2024-10-14 11:55 | XMS_ITS | Encounter Summary ---
Author Organization [facility] Address [address] [place] [address] Care Team Providers Care Hr Intern Name Role Phone Fred Chowdary MD Primary Care Provider [phone] Encounter Details Date Type Department Care Team (Latest Contact Info) Description 09/25/2024 11:00 AM EST Clinical Support [facility] [address] [phone] Crystal Conley Au.D [address] [place] [address] Sensorineural hearing loss, bilateral (Primary Dx) Social History Tobacco Use Types Packs/Day Years Used Date Smoking Tobacco: Never Passive Smoke Exposure: Never Smokeless Tobacco: Never Alcohol Use Standard Drinks/Week Comments Never 0 (1 standard drink = 0.6 oz pur e alcohol) Sex and Gender Information Value Date Recorded Sex Assigned at Not on file Gender Identity Not on file Sexual Orientation Not on file documented as of this encounter Procedure Notes * Clifford Kelly - 09/25/2024 11:00 AM ESTAssociated Order(s): BASIC COMPREHENSIVE AU Procedure(s): BASIC COMPREHENSIVE AU Pre-Procedure Diagnose(s): Sensorineural hearing loss, bilateral Images from the original note were not included. documented in this encounter Plan of Treatment Upcoming Encounters Date Type Department Care Team (Late st Contact Info) Description 10/17/2024 9:45 AM EST Clinical Support [facility] [address] [place] [phone] Crystal Conley Au.D [address] [place] [address] 03/17/2025 10:30 AM EDT Office Visit [facility] [address], [place] [address] Conor Contreras MD [address] [place] [address] documented as of this encounter Procedures Procedure Name Priority Date/Time Associated Diagnosis Comments BASIC COMPREHENSIVE AU Routine 11:00 AM EST Sensorineural hearing loss, bilateral documented in this encounter Results * BASIC COMPREHENSIVE AU (09/25/2024 11:00 AM EST) Narrative Crystal Conley Au.D - 09/25/2024 11:00 AM EST Clifford Kelly ? 09/25/2024 11:21 AM Conor Contreras MD AMB ORDERABLE PERFOR DAGMAR documented in this encounter Visit Diagnoses Diagnosis Sensorineural hearing loss, bilateral- Primary documented in this encounter Care Teams Hr Intern Relationship Specialty Start Date End Date Fred Chowdary MD [address] [place] [address] [place] [address] PCP - General Internal Medicine 07/15/24 documented as of this encounter
--- OUTSIDE RECORDS SUMMARY | 2024-10-14 11:55 | XMS_ITS | Clinical Summary ---
Author Organization [facility] Address [address] [place] [address] Care Team Providers Care Upper Marker Name Role Phone Fred Chowdary MD Primary Care Provider [phone] Allergies Active Allergy Reactions Criticality Noted Date [...] 07/14/2024 Tinea unguium 07/14/2024 Unspecified atherosclerosis of [place] arteries of extremities, bilateral legs 07/14/2024 TIA (transient ischemic attack) 07/07/2024 Vascular disorder 07/07/2024 Heart disease 07/07/2024 Dizziness 07/07/2024 Hearing loss 07/07/2024 Encounters Date Type Department Care Team Description 09/25/2024 11:30 AM EST Office Visit [facility] [address], [place] [address] Conor Contreras MD Right chronic serous otitis media (Primary Dx); Chronic dysfunction of right eustachian tube; Sensorineural hearing loss, bilateral 09/25/2024 11:00 AM EST Clinical Support [facility] [address] [phone] Crystal Conley Au.D Sensorineural hearing loss, bilateral (Primary Dx) from Last 3 Months Immunizations Name Administration [...] Mass Index 25.38 09/25/2024 11:24 AM EST Plan of Treatment Upcoming Encounters Date Type Department Care Team (Late st Contact Info) Description 10/17/2024 9:45 AM EST Clinical Support [facility] [address] [phone] Crystal Conley Au.D [address] [place] [address] 03/17/2025 10:30 AM EDT Office Visit [facility] [address], [place] [address] Conor Contreras MD [address] [place] [address] Health Maintenance Due Date Last Done [...] on patient's age to complete this topic Procedures Procedure Name Priority Date/Time Associated Diagnosis Comments BASIC COMPREHENSIVE AU Routine 11:00 AM EST Sensorineural hearing loss, bilateral from Last 3 Months Results * BASIC COMPREHENSIVE AU (09/25/2024 11:00 AM EST) Narrative Crystal Conley Au.D - 09/25/2024 11:00 AM EST Clifford Kelly ? 09/25/2024 11:21 AM Conor Contreras MD AMB ORDERABLE PERFOR DAGMAR from Last 3 Months Care Teams Upper Marker Relationship Specialty Start Date End Date Fred Chowdary MD [address] [place] [address] [place] [address] PCP - General Internal Medicine 07/15/24
== END ==
LOC: HO.CARD 10:00
PROVIDERS: PCP Family Medicine; Visit Provider Internal Medicine
DX: Z95.3 Presence of xenogenic heart valve (principal)
CPT/HCPCS: 93306

== ENCOUNTER → 2024-10-14 10:03 | Outpatient (BNV) | payer MEDICARE, SELFPAY | PROVIDERS: PCP Family Medicine; Visit Provider Internal Medicine Cardiovascular Disease | DX: I42.8 Other cardiomyopathies (principal); I36.1 Nonrheumatic tricuspid (valve) insufficiency; Z95.3 Presence of xenogenic heart valve | CPT/HCPCS: 93306 ==

== ENCOUNTER 2024-10-20 12:52 | Outpatient (AMB) | payer MEDICARE, SELFPAY ==
--- NOTE | 2024-10-20 13:07 | A.OFFVIS_ITS ---
Vital Signs 10/20/24 13:08 Height 5 ft 11 in Weight 179 lb BMI 25.0 BP 128/68 Blood Pressure Location Lt brachial Position Sitting Pulse 62 Pulse Source Pulse Oximeter Intake Visit Reasons: 6 mth f/up/echo Allergies Penicillins [PENICILLINS] Adverse Reaction (Severe, Verified 10/17/23 09:16) GI upset / nausea & vomiting Medication List - Last Reconciled 10/20/24 by Colten Rasmussen MD amlodipine 10 mg (2 x 5 mg) PO DAILY aspirin (Stefany Low Dose Aspirin) 81 mg PO DAILY atorvastatin 10 mg PO DAILY carvedilol 25 mg PO BID clindamycin HCl 600 mg PO ONCE furosemide 20 mg PO DAILY hydralazine 25 mg PO BID lisinopril 20 mg PO BID multivitamin 1 tab PO DAILY trazodone 25 mg PO BEDTIME PRN walker Folding Front wheeled walker HPI Comments Details: Alfredito returns for follow-up regarding various issues including TAVR, chronic diastolic heart failure, hypertension. He also has a permanent pacemaker. He states he feels good. He does not have any complaints like angina or shortness of breath or palpitations or in fact anything cardiac sounding. Ge tting along fine. [facility] Medical History (Updated 05/12/24 @ 14:55 by Colten Rasmussen MD) Basal cell carcinoma Bruises easily Diverticulitis GERD (gastroesophageal reflux disease) TIA (transient ischemic attack) Osteoarthritis Osteoarthritis of left knee Pseudoaneurysm Essential hypertension Normally functioning cardiac pacemaker present Atherosclerotic cardiovascular disease Chronic heart failure with preserved ejection fraction Surgical History History of total left knee replacement (04/17/23) Hx of tonsillectomy History of surgery History of esophagogastroduodenoscopy (EGD) H/O colonoscopy History of permanent cardiac pacemaker placement (~02/2019) History of cardiac catheterization (~01/30/18) Status post transcatheter aortic valve replacement (TAVR) using bioprosthesis (~02/2019) Family History Father CVD (cardiovascular disease) Mother No problems noted. Social History Household Members: Spouse Housing: House Are you a primary progressive care nurse to a significant other at home: No Do you presently have visiting nurse or other home services: No Patient Tobacco Use Status: Never used Tobacco Second Hand Smoke Exposure: No Advance Directives Date on File: 04/17/23 service: No Current occupational status: retired Current occupation: rt handed Review of Systems Const Denies weakness ENT Denies dizziness Card Denies chest pain, Denies chest pain with activity, Denies syncope, Denies rapid heart rate, Denies pedal edema, Denies edema, Denies leg edema, Denies lightheadedness, Denies palpitations, Denies dyspnea, Denies dyspnea on exertion and Denies orthopnea Resp Denies cough, Denies dyspnea and Denies dyspnea on exertion GI Denies hematochezia and Denies change in stool character Musc Denies abnormal gait, Denies muscle cramps, Denies muscle weakness, Denies numbness, Denies radiating pain into limb and Denies tingling Neuro Denies abnormal gait, Denies dizziness, Denies syncope, Denies numbness, Denies tingling and Denies weakness Endo Denies palpitations Physical Exam Vital Signs: Last Vital Signs Pulse 62 10/20/24 13:08 BP 128/68 10/20/24 13:08 BMI result Body Mass Index 25.0 Const General: comfortable and no acute distress Orientation/consciousness: patient oriented x3 HEENT Other: Unremarkable Head: Yes normal to inspection Neck Neck: Yes normal visual inspection Chest Chest palpation & inspection: normal inspection of the chest Resp Auscultation: clear to auscultation bilaterally Cardio Palpation: normal PMI Heart sounds: S1 normal heart sound present, S2 normal heart sound present, no gallops, no murmurs and no rubs GI Palpation (GI): Soft to palpation Back/Spine/Pelvis Other: unremarkable Skin General skin exam: no rashes or lesions noted Neuro General: patient oriented x3 Extrem General: Yes normal to inspection Psych Mental Status: mental status grossly normal Office Procedures Cardiac Device Check Cardiac Device Check Details: Pacemaker interrogated today. Dual-chamber device, programmed AAI/DDD mode. Battery status 8.5 years. Normal lead parameters. Atrial pacing 9.6%. Ventricular pacing 92.6%. Very brief NSVT episodes. Overall, normal device function. 69332-UE Cardiac Device Check, pacemaker dual lead Procedure code (CPT) selection complete Assessment & Plan Assessment & Plan (1) Status post transcatheter aortic valve replacement (TAVR) using bioprosthesis: Code(s): Z95.3 - Presence of xenogenic heart valve Category: Surgical Plan: Continue aspirin. Normally functioning bioprosthetic aortic valve on echocardio gram. Infective endocarditis prophylaxis per protocol. (2) Chronic heart failure with preserved ejection fraction: Code(s): I50.32 - Chronic diastolic (congestive) heart failure Category: Medical Plan: Remains on diuretics. Stable. (3) Atherosclerotic cardiovascular disease: Code(s): I25.10 - Atherosclerotic heart disease of hoh coronary artery without angina pectoris Category: Medical Plan: Cardiac catheterization in the past with mild disease diffusely. No hemodynamically significant lesions. Continue aspirin and statins. LDL is slightly higher than ideal. Advised to increase physical activity. Healthier diet. (4) Essential hypertension: Code(s): I10 - Essential (primary) hypertension Category: Medical Plan: Stable. (5) Normally functioning cardiac pacemaker present: Code(s): Z95.0 - Presence of cardiac pacemaker Category: Medical Plan: Checked today and with normal function. May follow remotely. Coding Level of Care Code Est Pt Level 4 (40653) Diagnoses Status post transcatheter aortic valve replacement (TAVR) using bioprosthesis Z95.3 Chronic heart failure with preserved ejection fraction I50.32 Atherosclerotic cardiovascular disease I25.10 Essential hypertension I10 Normally functioning cardiac pacemaker present Z95.0 CPT Codes Cardiac Device Check - Cardiac Device 2: 26720-YK Cardiac Device Check, pacemaker dual lead ([id number])
[2024-10-20 13:08] VITALS: BP 128/68; PULSE 62; BMI 25.0
--- OUTSIDE RECORDS SUMMARY | 2024-10-20 14:25 | XMS_ITS | Encounter Summary ---
Author Organization [facility] Address [address] [place] [address] Care Team Providers Care Network Operations Manager Name Role Phone Fred Chowdary MD Primary Care Provider [phone] Encounter Details Date Type Department Care Team (Latest Contact Info) Description 09/25/2024 11:00 AM EST Clinical Support [facility] [address], [place] [phone] Crystal Conley Au.D [address] [place], [place] [phone] Sensorineural hearing loss, bilateral (Primary Dx) Social [...] Care Team (Late st Contact Info) Description 10/24/2024 10:45 AM EDT Clinical Support [facility] [address] [place] [phone] Crystal Conley Au.D [address] [place] [address] 03/17/2025 10:30 AM EDT Office Visit [facility] [address], [place] [address] Conor Contreras MD [address] [place] [address] documented as of this encounter Procedures [...] Primary documented in this encounter Care Teams Network Operations Manager Relationship Specialty Start Date End Date Fred Chowdary MD [address] [place] [address] [place] [address] PCP - General Internal Medicine 07/15/24 documented as of this encounter
--- OUTSIDE RECORDS SUMMARY | 2024-10-20 14:25 | XMS_ITS | Encounter Summary ---
Author Organization [facility] Address [address] [place] [address] Care Team Providers Care Supervisory Training Specialist Name Role Phone Fred Chowdary MD Primary Care Provider [phone] Reason for Visit * Reason Comments Hearing Loss Encounter Details Date Type Department Care Team (Late st Contact Info) Description 09/25/2024 11:30 AM EST Office Visit [facility] [address] [address] Conor Contreras MD [address] [place] [address] Right chronic serous otitis media (Primary Dx); [...] the original note were not included. [address] [facility], [place] [address] Loc: [phone] Encounter Date: 09/25/2024 Chief Complaint Patient presents [...] ear. - Consider hearing aids evaluation with grain packer. - Use Kleenex finger sweep for ear [...] Description 10/24/2024 10:45 AM EDT Clinical Support [facility] [address] [address] Crystal Conley Au.D [address] [place] [address] [phone] 03/17/2025 10:30 AM EDT Office Visit [facility] [address] [address] Conor Contreras MD [address] [place] [address] documented as of this encounter Visit Diagnoses Diagnosis Right chronic serous otitis media- Primary Simple or unspecified chronic serous otitis media Chronic dysfunction of right eustachian tube Sensorineural hearing loss, bilateral documented in this encounter Care Teams Supervisory Training Specialist Relationship Specialty Start Date End Date Fred Chowdary MD [address] [place] [address] [place] [address] [place] [address] PCP - General Internal Medicine 07/15/24 documented as of this encounter
--- OUTSIDE RECORDS SUMMARY | 2024-10-20 14:25 | XMS_ITS | Clinical Summary ---
Author Organization [facility] Address [address] [place] [address] Care Team Providers Care Scrape Gatherer Name Role Phone Fred Chowdary MD Primary Care Provider [phone] Allergies Active Allergy Reactions Criticality Noted Date [...] 07/14/2024 Tinea unguium 07/14/2024 Unspecified atherosclerosis of [place] arteries of extremities, bilateral legs 07/14/2024 TIA (transient ischemic attack) 07/07/2024 Vascular disorder 07/07/2024 Heart disease 07/07/2024 Dizziness 07/07/2024 Hearing loss 07/07/2024 Encounters Date Type Department Care Team Description 09/25/2024 11:30 AM EST Office Visit [facility] [address], [place] [address] Conor Contreras MD Right chronic serous otitis media (Primary Dx); Chronic dysfunction of right eustachian tube; Sensorineural hearing loss, bilateral 09/25/2024 11:00 AM EST Clinical Support [facility] [address] [address] Crystal Conley Au.D Sensorineural hearing [...] Description 10/24/2024 10:45 AM EDT Clinical Support [facility] [address], [place] [address] Crystal Conley Au.D [address] [place] [address] 03/17/2025 10:30 AM EDT Office Visit [facility] [address], [place] [address] Conor Contreras MD [address] [place] [address] Health Maintenance Due Date Last Done [...] DAGMAR from Last 3 Months Care Teams Scrape Gatherer Relationship Specialty Start Date End Date Fred Chowdary MD [address] [place] [address] [place] [address] PCP - General Internal Medicine 07/15/24
--- OUTSIDE RECORDS SUMMARY | 2024-10-20 14:25 | XMS_ITS | Patient Health Record ---
Author Organization [facility] Address [address] [place] [address] Care Team Providers Care Harness Worker Name Role Phone Fred Chowdary MD Primary Care Provider Sal Mckenzie Unavailable [phone] Allergies Allergen (clinical drug ingredient) Drug/Non Drug [...] W/U Status Risk Notes Problem Tinea unguium (326259385) Tinea unguium (B35.1) Active confirmed Problem Bilateral atherosclerosis of arteries of lower limbs (disorder) (64445644889903232 ) Unspecified atherosclerosis of [place] arteries of extremities, bilateral legs (I70.203) Active confirmed Problem Localized, primary osteoarthritis of the ankle and/or foot (832236998) Primary osteoarthritis, right ankle and foot (M19.071) Active confirmed Problem Acquired hammer toe of right foot (8540869877320510) Other hammer toe(s) (acquired), right foot (M20.41) Active confirmed Plan Of Treatment Pending Test Test Name Order Date X ray : Foot, right 3V 10/18/2017 X ray : Foot, right 3V 05/05/2020 64825-[id number] NAIL, 6 OR MORE 10/18/2017 84672-OTWFXMA NAIL, 6 OR MORE 05/01/2011 33573-EWLXDZF NAIL, 6 OR MORE 07/19/2011 54137-WLYQDOV NAIL, 6 OR MORE 01/25/2012 18127-QTVRYJN NAIL, 6 OR MORE 04/22/2012 18286-JJXRHZH NAIL, 6 OR MORE 07/22/2012 05497-JQSHNVW NAIL, 6 OR MORE 10/21/2012 46700-DDZLTTX NAIL, 6 OR MORE 04/03/2013 86671-IXMAOHK NAIL, 6 OR MORE 05/29/2013 63693-WSMYUZO NAIL, 6 OR MORE 08/25/2013 13954-XBQTKRP NAIL, 6 OR MORE 11/26/2013 69744-YCGEMJN NAIL, 6 OR MORE 03/04/2014 80758-WIAZVOY NAIL, 6 OR MORE 06/03/2014 21669-CHRLRAM NAIL, 1-5 05/26/2015 32404-OHIRGPZ NAIL, 1-5 11/11/2015 88669-EJUIRFQ NAIL, 1-03/15/2016 91023-SYYVKIK NAIL, -09/27/2016 17981-YAFVDLR NAIL, 08-1703/28/2017 13028-Ipwl Destruction, 08-2603/28/2017 79674-Bwlg Destruction, 08-2610/18/2017 00649-Kkfh Destruction, 08-2604/09/2014 06310-Irvd Destruction, 08-2609/27/2016 53406-Bmjn Destruction, 08-2603/15/2016 57111-Unhx Destruction, 08-2611/11/2015 85062-Lhqm Destruction, 08-2606/03/2014 14984-Eiyp Destruction, 08-2605/26/2015 50833-Ztai Destruction, 08-2603/04/2014 46943-Rfbi Destruction, 08-2611/26/2013 58207-Krpl Destruction, 08-2608/25/2013 39123-Fdud Destruction, 08-2605/29/2013 68126-Izua Destruction, 08-2604/03/2013 11078-Hipu Destruction, 08-2610/21/2012 21180-Ekio Destruction, 08-2607/22/2012 39350-Dins Destruction, 08-2604/22/2012 02226-Vbfb Destruction, 08-2601/25/2012 85818-Swaf Destruction, 08-2607/19/2011 52009-Trwc Destruction, 08-2605/01/2011 86635, J0702- INJECT or DRAIN, JOINT/BUR SA 11/12/2017 84942-UHZN SKIN LESIONS, 2 TO 4 02/09/20 22 45457, N0193-CWFXH/INJECT, JOINT/BURSA 0 11/12/2017 14470, P5004-GBYDB/INJECT, JOINT/BURSA 0 05/05/2020 15969, J0702- Neuroma/Injection 05/29/20 13 48219, J0702- Neuroma/Injection 03/04/20 14 45182, J0702- Neuroma/Injection 05/26/20 15 Insurance Providers Payer Name Payer Address Payer Phone Subscriber Number Group Number Insured Name Patient Relationship to Insured Coverage Start Date Coverage End Date Medicare National Govt Svcs Inc [address] [place] [address] [id number] Alfredito Mojica Self - patient is the insured [employer] [facility] [address] [place] [address] [phone] [id number] MojicaAlfredito Self - patient is the insured Medical (General) History Medical History History ICD Code mumps measles high blood pressure diverticulitis Arthritis Surgical History Surgery Date(Month/Year) tonsillectomy child cardiac pacemeker 03/10/2019 aortic valve replacement 03/03/2019 Hospitalization History Reason Date(Month/Year) Physical Therapy for pulled right bicep at [facility] 08/2014 [facility]-Heart Valve and Pacemak er- 7 day stay 02/2019
== END 2024-10-20 13:22 | disposition home or self-care (01) ==
PROVIDERS: PCP Family Medicine; Visit Provider Internal Medicine
DX: I50.32 Chronic diastolic (congestive) heart failure (principal); Z95.3 Presence of xenogenic heart valve; I25.10 Atherosclerotic heart disease of native coronary artery without angina pectoris; I10 Essential (primary) hypertension; Z95.0 Presence of cardiac pacemaker
CPT/HCPCS: 93280; 99214

== ENCOUNTER → 2024-10-20 12:52 | Outpatient (BNVA) | payer MEDICARE, SELFPAY | PROVIDERS: PCP Family Medicine; Visit Provider Internal Medicine | DX: Z45.018 Encounter for adjustment and management of other part of cardiac pacemaker (principal); I11.0 Hypertensive heart disease with heart failure; I50.32 Chronic diastolic (congestive) heart failure; I25.10 Atherosclerotic heart disease of native coronary artery without angina pectoris; Z95.3 Presence of xenogenic heart valve | CPT/HCPCS: 93280; 99212 ==

== ENCOUNTER 2024-11-06 07:56 | Outpatient (REF) | payer MEDICARE, SELFPAY ==
[2024-11-06 10:36] LABS: MANUAL DIFF FLAG NO
[2024-11-06 10:39] LABS: Basophils Percent Auto 0.5 % (0-2); Eosinophils Absolute Auto 0.5 X10*3/uL (0.0-0.4); Hematocrit 39.5 % (42.0-52.0); Hemoglobin 12.9 g/dl (14.0-18.0); Imm Gran Abs Auto 0.01 X10*3/uL (0.00-0.03); Imm Gran Pct Auto 0.1 % (0.0-0.4); Lymphocytes Absolute Auto 1.5 X10*3/uL (1.2-4.9); Lymphocytes Percent Auto 19.3 % (20-40); Mean Corpuscular HGB Conc 32.7 g/dl (31.0-36.0); Mean Corpuscular Hemoglobin 29.1 pg (27.0-33.0); Mean Platelet Volume 10.4 fL (9.4-12.4); Monocytes Absolute Auto 0.8 X10*3/uL (0.1-1.2); Monocytes Percent Auto 10.7 % (2-11); Neutrophils Absolute Auto 4.8 x10*3/uL (2.0-8.3); Neutrophils Percent Auto 63.4 % (45-73); Platelet Count 186 X10*3/uL (160-400); Red Blood Count 4.44 X10*6/uL (4.60-5.80); Red Cell Distribution Width 13.2 % (11.0-16.0); White Blood Count 7.6 X10*3/uL (4.8-10.8)
[2024-11-06 10:53] LABS: Alanine Aminotransferase 17 U/L (0-40); Anion Gap 8 (12-20); Aspartate Amino Transferase 23 U/L (5-37); Blood Urea Nitrogen 21 mg/dL (9-16); Carbon Dioxide 26 mmol/L (22-29); Chloride 112 mmol/L (96-108); Estimated Glomerular Filt Rate > 60; Glucose Fasting 105 mg/dL (60-99); Sodium 142 mmol/L (135-145)
[2024-11-06 11:15] LABS: Estimated Average Glucose 117 mg/dL; Hemoglobin A1C 133.9376 umol/L; Hemoglobin A1c % 5.7 % (<6.0)
[2024-11-06 11:26] LABS: Erythrocyte Sedimentation Rate 18 MM/HR (0-15)
== END 2024-11-06 07:57 | disposition home or self-care (01) ==
LOC: HO.10HDL 07:56
PROVIDERS: Visit Provider Family Medicine
DX: R19.7 Diarrhea, unspecified (principal); E78.00 Pure hypercholesterolemia, unspecified; E11.9 Type 2 diabetes mellitus without complications
CPT/HCPCS: 36415; 80051; 82550; 82565; 82947; 83036; 84450; 84460; 84520; 85025; 85652

== ENCOUNTER → 2024-11-09 23:59 | Outpatient (BNV) | payer MEDICARE, SELFPAY ==
--- NOTE | 2024-11-12 21:41 | A.OFFVIS_ITS ---
Intake Visit Reasons: Remote device check- [employer] Allergies Penicillins [PENICILLINS] Adverse Reaction (Severe, Verified 10/17/23 09:16) GI upset / nausea & vomiting [facility] Medical History (Updated 05/12/24 @ 14:55 by Colten Rasmussen MD) Basal cell carcinoma Bruises easily Diverticulitis GERD (gastroesophageal reflux disease) TIA (transient ischemic attack) Osteoarthritis Osteoarthritis of left knee Pseudoaneurysm Essential hypertension Normally functioning cardiac pacemaker present Atherosclerotic cardiovascular disease Chronic heart failure with preserved ejection fraction Surgical History History of total left knee replacement (04/17/23) Hx of tonsillectomy History of surgery History of esophagogastroduodenoscopy (EGD) H/O colonoscopy History of permanent cardiac pacemaker placement (~02/2019) History of cardiac catheterization (~01/30/18) Status post transcatheter aortic valve replacement (TAVR) using bioprosthesis (~02/2019) Family History Father CVD (cardiovascular disease) Mother No problems noted. Social History Household Members: Spouse Housing: House Are you a primary grounds caretaker to a significant other at home: No Do you presently have visiting nurse or other home services: No Patient Tobacco Use Status: Never used Tobacco Second Hand Smoke Exposure: No Advance Directives Date on File: 04/17/23 service: No Current occupational status: retired Current occupation: rt handed Office Procedures Cardiac Device Check Cardiac Device Check Details: Date of service- 11/09/2024 ; Battery life >8 years; normal lead parameters; AP >6 %; EDGE BANDER OPERATOR >99 %; no significant arrhythmias. Overall normal device function. 67093-Bmbqvo Cardiac Device Interrogation, pacemaker Procedure code (CPT) selection complete Assessment & Plan Assessment & Plan (1) Pacemaker: Code(s): Z95.0 - Presence of cardiac pacemaker Category: Medical (2) Heart block: Code(s): I45.9 - Conduction disorder, unspecified Category: Medical Plan x Coding Level of Care Code Procedure Only Diagnoses Pacemaker Z95.0 Heart block I45.9 CPT Codes Cardiac Device Check - Cardiac Device 12: 72487-Qthkws Cardiac Device Interrogation, pacemaker ([id number])
== END ==
PROVIDERS: PCP Family Medicine; Visit Provider Internal Medicine
DX: I45.9 Conduction disorder, unspecified (principal); Z95.0 Presence of cardiac pacemaker
CPT/HCPCS: 93294

== ENCOUNTER 2025-03-09 12:47 | Outpatient (AMB) | payer MEDICARE, SELFPAY ==
[2025-03-09 12:51] VITALS: BMI 25.0
--- NOTE | 2025-03-09 12:51 | A.OFFVIS_ITS ---
Vital Signs 03/09/25 12:51 Height 5 ft 11 in Weight 179 lb BMI 25.0 Intake Visit Reasons: OV - RT knee pain last inj 06/19/22 Intake Note: Alfredito is an 84 year old male who presents today for a follow up of right knee OA, last injection 06/19/22. Patient reports last injection provided him with relief, his discomfort returned about 6-7 weeks ago. His pain is located at the medial aspect of knee and a burning senstation at the lateral side of knee that travels down his leg. He is requesting to repeat injection. Allergies Penicillins (PENICILLINS) Adverse Reaction (Severe, Verified 03/09/25 13:04) GI upset / nausea & vomiting Medication List - Last Reconciled 03/09/25 by Leila Norman PA-C amlodipine 10 mg (2 x 5 mg) PO DAILY aspirin (Stefany Low Dose Aspirin) 81 mg PO DAILY atorvastatin 10 mg PO DAILY carvedilol 25 mg PO BID clindamycin HCl 600 mg PO ONCE furosemide 20 mg PO DAILY hydralazine 25 mg PO BID lisinopril 20 mg PO BID multivitamin 1 tab PO DAILY walker Folding Front wheeled walker HPI HPI OV - RT knee pain last inj 06/19/22: Details: 84-year-old gentleman presents to the office today for right knee pain. He is status post left total knee arthroplasty with Dr. Mcnally in 2022. He recovered quite well. He was seen in June of 2022 for his right knee and had an injection. He states recently the right knee has been bothering him and limiting his ability to walk long distances and climb stairs. [facility] Medical History (Updated 03/09/25 @ 13:26 by Leila Norman PA-C) Basal cell carcinoma Bruises easily Diverticulitis GERD (gastroesophageal reflux disease) TIA (transient ischemic attack) Osteoarthritis Osteoarthritis of left knee Pseudoaneurysm Essential hypertension Normally functioning cardiac pacemaker present Atherosclerotic cardiovascular disease Chronic heart failure with preserved ejection fraction Surgical History History of total left knee replacement (04/17/23) Hx of tonsillectomy History of surgery History of esophagogastroduodenoscopy (EGD) H/O colonoscopy History of permanent cardiac pacemaker placement (~02/2019) History of cardiac catheterization (~01/30/18) Status post transcatheter aortic valve replacement (TAVR) using bioprosthesis Family History Father CVD (cardiovascular disease) Mother No problems noted. Social History Household Members: Spouse Housing: House Are you a primary care transition mgr to a significant other at home: No Do you presently have visiting nurse or other home services: No Patient Tobacco Use Status: Never used Tobacco Second Hand Smoke Exposure: No Advance Directives Date on File: 04/17/23 service: No Current occupational status: retired Current occupation: rt handed Review of Systems Const All systems reviewed & are unremarkable except as noted in HPI and below Physical Exam Vital Signs: BMI result Body Mass Index 25.0 Extrem Other: Right knee is normal to inspection he does have a valgus deformity with tenderness along the medial joint line. Full range of motion with crepitus. Calf is supple and nontender neurovascularly intact. Results Reviewed Results Reviewed: X-rays of the in the office today and reviewed by me shows a significant valgus deformity with lateral joint collapse. Patellofemoral arthritis present Assessment & Plan Assessment & Plan (1) Tricompartment osteoarthritis of right knee: Code(s): M17.11 - Unilateral primary osteoarthritis, right knee Category: Medical Plan: We discussed options today which includes steroid injection. He did have a steroid injection in 2021 which was helpful. Since then he did have a left tot al knee arthroplasty in [address] Mcnally. Just recently his right knee has been bothering him and he would like to continue with conservative management at this time. He is familiar with the arthroplasty process and would like to hold off on the right but does understand the deformity may progress. Right knee injection was performed today and the patient tolerated well. He will see me back as needed. Orders: Orders XR knee RT 3V Today M17.11 - Unilateral primary osteoarthritis, right knee Coding Level of Care Code Est Pt Level 3 (60009) Complex EM visit Add On G2211 Diagnoses Tricompartment osteoarthritis of right knee M17.11
--- OUTSIDE RECORDS SUMMARY | 2025-03-09 13:29 | XMS_ITS | Clinical Summary ---
Author Organization [facility] Address [address] [place] [address] Care Team Providers Care Extra Gang Supervisor Name Role Phone Fred Chowdary MD Primary Care Provider [phone] Allergies Active Allergy Reactions Criticality Noted Date Comments Penicillins Unknown/Patient and Family Unable to Define Medium 07/07/2024 Pneumococcal Vaccines Unknown/Patient an d Family Unable to Define Medium 07/14/2024 Medications amLODIPine (NORVASC) 5 MG tablet Take 10 mg by mouth. 04/07/2024 Active atorvastatin (LIPITOR) 10 MG tablet Take 10 mg by mouth nightly. 06/03/2024 Active carvedilol (COREG) 25 MG tablet 1 tablet by Mouth/Oral Cavity route every 12 hours. 04/07/2024 Active hydrALAZINE (APRESOLINE) 25 MG tablet 1 tablet by Mouth/Oral Cavity route every 12 hours. 06/17/2024 Active lisinopril (PRINIVIL,ZeSTR IL) 20 MG tablet 1 tablet by Mouth/Oral [...] 07/14/2024 Tinea unguium 07/14/2024 Unspecified atherosclerosis of [place] arteries of extremities, bilateral legs 07/14/2024 TIA (transient ischemic attack) 07/07/2024 Vascular disorder 07/07/2024 Heart disease 07/07/2024 Dizziness 07/07/2024 Hearing loss 07/07/2024 Immunizations Immunization Administration Dates Next Due Covid-19 mRNA Primary [...] Recorded Sex Assigned at Not on file Legal Sex Male 5:31 PM EDT Gender Identity Not on file Sexual Orientation [...] Care Team (Late st Contact Info) Description 03/17/2025 10:30 AM EDT Office Visit [facility] [address] [address] Conor Contreras MD [address] [place] [address] [phone] 06/03/2025 11:00 AM EDT Office Visit [facility] [address] [phone] Crystal Conley Au.D [address] [place], [place] [phone] Health Maintenance Due Date Last Done Comments DTaP/Tdap/Td Vaccines (1 - Tdap) 1959 Pneumococcal Vaccines 50+ (1 of 2 - PCV) 1959 Zoster (Shingles) Vaccine (1 of 2) 1959 RSV Vaccine 60 years and old er and Patients (1 - 1-dose 75+ series) 2013 COVID-19 Vaccine (2 - Modern a risk series) 11/25/2020 10/28/2020 Influenza Vaccine 03/13/2025 06/27/2021 Hepatitis B Vaccines Aged Out No long er eligible based on patient's age to complete this topic Insurance MEDICARE PART A & B [facility] Care Teams Extra Gang Supervisor Relationship Specialty Start Date End Date Fred Chowdary MD [address] [place] [address] [place] [address] PCP - General Internal Medicine 07/15/24
--- OUTSIDE RECORDS SUMMARY | 2025-03-09 13:29 | XMS_ITS | Patient Health Record ---
Author Organization [facility] Address [address] [facility] [place] [address] Care Team Providers Care Charting Clerk Name Role Phone Fred Chowdary MD Primary Care Provider Sal Mckenzie Unavailable [phone] Allergies Allergen (clinical drug ingredient) Drug/Non Drug Allergy documented on EMR Reaction Allergy Type Onset Date Status Penicillin nausea Drug Allergy Active Vaccine product containing Streptococcus pneumoniae antigen (medicinal product) Pneumococcal Vaccines Unknown Drug Allergy Active Reason For Referral No Information Medications Medication SIG (Take, Route, Frequency, Duration) Notes Start Date End Date Status amLODIPine Besylate 10 MG 1 tablet Orally Once a day; Duration: 30 day(s) Active Norvasc Not-Taking Atorvastatin Calcium 10 MG 1 tablet Orally Once a day; Duration: 30 day(s) Active Crestor Not-Taking ZyrTEC Active Coreg 12.5 MG as directed Orally Not-Taking Lisinopril Active Trazodone & Diet Manage Prod Active Furosemide 20 MG 1 tablet Orally Once a day; Duration: 30 day(s) Active Clindamycin HCl PRN for Dental Appts Active Doxazosin Mesylate 4 MG 1 tablet Orally Once a day; Duration: 30 day(s) Active Baby Aspirin Active Flomax 0.4 MG 1 capsule 30 minutes after the same meal each day Orally Once a day; Duration: 30 day(s) Not-Taking Clopidogrel Bisulfate 75 MG 1 tablet Orally Once a day; Duration: 30 day(s) Active Lipitor 10 MG 1 tablet Orally Once a day; Duration: 30 day(s) Not-Taking Immunizations Vaccine Route Administration Date Status Comme nts Influenza Unknown 06/27/2021 Administered COVID-19 Moderna Vaccine Unknown 10/28/2020 Administere d 1st 09/22/2020 Social History Tobacco Use: Social History Observation [...] W/U Status Risk Notes Problem Tinea unguium (190273777) Tinea unguium (B35.1) Active confirmed Problem Bilateral atherosclerosis of arteries of lower limbs (disorder) (14597555927240056 ) Unspecified atherosclerosis of [place] arteries of extremities, bilateral legs (I70.203) Active confirmed Problem Localized, primary osteoarthritis of the ankle and/or foot (152773547) Primary osteoarthritis, right ankle and foot (M19.071) Active confirmed Problem Other hammer toe(s) (acquired), right foot (M20.41) Active confirmed Plan Of Treatment Pending Test Test Name Order Date X ray : Foot, right 3V 10/18/2017 X ray : Foot, right 3V 05/05/2020 64190-TWWSHCZ NAIL, 6 OR MORE 10/18/2017 60182-UQOLECR NAIL, 6 OR MORE 05/01/2011 75233-SNZZPYJ NAIL, 6 OR MORE 07/19/2011 51475-WSSVMJP NAIL, 6 OR MORE 01/25/2012 11225-QCXLWXZ NAIL, 6 OR MORE 04/22/2012 14418-LYNGMOE NAIL, 6 OR MORE 07/22/2012 34416-UGSRJLK NAIL, 6 OR MORE 10/21/2012 19029-YVIOZSQ NAIL, 6 OR MORE 04/03/2013 85974-KCAOJDU NAIL, 6 OR MORE 05/29/2013 89859-ZLYFBVP NAIL, 6 OR MORE 08/25/2013 81872-VIZFZKA NAIL, 6 OR MORE 11/26/2013 04682-WQZMUMX NAIL, 6 OR MORE 03/04/2014 63887-MXQIEPX NAIL, 6 OR MORE 06/03/2014 01580-EMUNLVU NAIL, 1-5 05/26/2015 26518-RYOURNO NAIL, 1-5 11/11/2015 60314-TNAEWHD NAIL, 1-5 03/15/2016 34218-UTXRQHT NAIL, -09/27/2016 08107-RHTCCTN NAIL, 08-1703/28/2017 29282-Qnbs Destruction, 08-2603/28/2017 42055-Pmwn Destruction, 08-2610/18/2017 35977-Bkfr Destruction, 08-2604/09/2014 45421-Xcqd Destruction, 08-2609/27/2016 45079-Yhtu Destruction, 08-2603/15/2016 21044-Hriw Destruction, 08-2611/11/2015 03053-Xwkv Destruction, 08-2606/03/2014 71177-Hieq Destruction, 08-2605/26/2015 73360-Gwlp Destruction, 08-2603/04/2014 02111-Qfzp Destruction, 08-2611/26/2013 65216-Pqsg Destruction, 08-2608/25/2013 93514-Laqa Destruction, 08-2605/29/2013 68397-Uljy Destruction, 08-2604/03/2013 03136-Bpoj Destruction, 08-2610/21/2012 25882-Fcfo Destruction, 08-2607/22/2012 44444-Xwqu Destruction, 08-2604/22/2012 70991-Ovyx Destruction, 08-2601/25/2012 54418-Dtxk Destruction, 08-2607/19/2011 04150-Rksi Destruction, 08-2605/01/2011 79135, J0702- INJECT or DRAIN, JOINT/BUR SA 11/12/2017 46032-WOCZ SKIN LESIONS, 2 TO 4 02/09/20 22 98575, P3116-EJDMP/INJECT, JOINT/BURSA 0 11/12/2017 27295, D9378-WDWVU/INJECT, JOINT/BURSA 0 05/05/2020 36970, J0702- Neuroma/Injection 05/29/20 13 25126, J0702- Neuroma/Injection 03/04/20 14 06170, J0702- Neuroma/Injection 05/26/20 15 Insurance Providers Payer Name Payer Address Payer Phone Subscriber Number Group Number Insured Name Patient Relationship to Insured Coverage Start Date Coverage End Date Medicare National Govt Svcs Inc [address] [place] [address] [id number] Alfredito Mojica Self - patient is the insured [employer] [facility] [address] [place] [address] [id number] Alfredito Mojica Self - patient is the insured Medical (General) History Medical History History ICD Code mumps measles high blood pressure diverticulitis Arthritis Surgical History Surgery Date(Month/Year) tonsillectomy child cardiac pacemeker 03/10/2019 aortic valve replacement 03/03/2019 Hospitalization History Reason Date(Month/Year) Physical Therapy for pulled right bicep at [facility] 08/2014 [facility]-Heart Valve and Pacemak er- 7 day stay 02/2019
--- OUTSIDE RECORDS SUMMARY | 2025-03-09 13:29 | XMS_ITS | Patient Health Record ---
Author Organization [facility] Address [address] [place] [address] Care Team Providers Care Slot Machine Floor Person Name Role Phone Epi (RETIRED) Fred ADEN Primary Care Provider Unavailable Luisito Cintron Unavailable [phone] Allergies Allergen (clinical drug ingredient) Drug/Non Drug Allergy documented on EMR Reaction Allergy Type Onset Date Status Penicillin Unknown Drug Allergy Active Reason For Referral No Information Medications Medication SIG (Take, Route, Fr equency, Duration) Notes Start Date End Date Status Lisinopril 5 MG 1 tablet Orally Once a day Active Flomax 0.4 MG 1 capsule 30 minutes after the same meal each day Orally Once a day Active Norvasc 5 MG 1 tablet Orally Once a day Active Crestor 5 MG 1 tablet Orally Once a day Active Problems Problem Type SNOMED Code ICD Code Onset Dates Problem Status W/U Status Risk Notes Problem Colon cancer screening (715402373) Colon cancer screening (V76.51) Active confirmed Problem Gastroesophageal reflux disease (989256570) GERD (gastroesopha geal reflux disease) (530.81) Active confirmed Plan Of Treatment Future Test Test Name Order Date COLONOSCOPY 06/30/2014 Insurance Providers Payer Name Payer Address Payer Phone Subscriber Number Group Number Insured Name Patient Relationship to Insured Coverage Start Date Coverage End Date MEDICARE OF [place] [address] [place] [address] [phone] [id number] SYED SANTANA Self - patient is the insured [employer] CLAIMS [address] [place] [address] [phone] [id number] SYED SANTANA Self - patient is the insured Medical (General) History Medical History History ICD Code GERD--EGD 01/11/2011--small HH, no esoph agitis nor Mcnamara's hypertension hyperlipidemia enlarged prostate Screening colonoscopy in 2004--neg. except for diverticulosis and internal hemorrhoids; negative screening sigmoidoscopy in 1998 Denies DE,DM,CVA,Lung disease,renal dise ase Hx of diverticulitis in the Duodenal ulcer in the Surgical History Surgery Date(Month/Year) tonsillectomy
== END 2025-03-09 14:33 | disposition home or self-care (01) ==
LOC: HO.HOS 12:48
PROVIDERS: PCP Family Medicine; Visit Provider Physician Assistant
DX: M17.11 Unilateral primary osteoarthritis, right knee (principal)
CPT/HCPCS: 20610; 99213

== ENCOUNTER 2025-03-09 12:47 | Outpatient (REF) | payer MEDICARE, SELFPAY ==
--- NOTE | ~2025-03-09 | XR_ITS ---
EXAMINATION: XR KNEE, RIGHT CLINICAL INFORMATION: M17.11 - Unilateral primary osteoarthritis, right knee COMPARISON: April 12, 2023. TECHNIQUE: AP view both knees in standing position. Lateral and sunrise view, of the right knee. FINDINGS: Subchondral cyst formation and sclerosis along the articular surface and joint space narrowing involving mostly the lateral compartment with marginal osteophyte formation lateral tibial plateau and lateral femoral condyle. Chondrocalcinosis in the menisci. Suprapatellar bursa joint effusion, moderate volume. No acute cortical disruption or malalignment. No lytic or blastic lesions. No subcutaneous edema. Vascular calcifications. Osteopenia versus the process. Total left knee arthroplasty prosthesis with a femoral and tibial plateau components.. XR/XR knee RT 3V IMPRESSION: Tricompartmental atherosclerosis involving mostly the lateral compartment without acute fracture or dislocation. Suprapatellar bursa joint effusion. Atherosclerosis disease, peripheral. Osteopenia versus the process. Electronically signed by: Bharat Gomes MD 03/09/2025 02:02 PM EDT
== END 2025-03-09 12:48 | disposition home or self-care (01) ==
LOC: HO.HOSX 12:47
PROVIDERS: PCP Family Medicine; Visit Provider Physician Assistant
DX: M17.11 Unilateral primary osteoarthritis, right knee (principal); I11.0 Hypertensive heart disease with heart failure; I50.9 Heart failure, unspecified; M25.561 Pain in right knee; Z79.82 Long term (current) use of aspirin; Z96.652 Presence of left artificial knee joint; Z79.899 Other long term (current) drug therapy
CPT/HCPCS: 20610; 73562; 99212; J1010; J2003

== ENCOUNTER → 2025-03-09 13:11 | Outpatient (BNV) | payer MEDICARE, SELFPAY | PROVIDERS: PCP Family Medicine; Visit Provider Radiology Diagnostic Radiology | DX: M17.11 Unilateral primary osteoarthritis, right knee (principal) | CPT/HCPCS: 73562 ==

== ENCOUNTER 2025-04-08 09:55 | Outpatient (AMB) | payer MEDICARE, SELFPAY ==
--- NOTE | 2025-04-08 09:57 | MHC.PC.OV ---
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 He reports a history of hypertension, diagnosed several years ago, for which he has been taking amlodipine and carvedilol. The patient also has a history of heart block requiring a pacemaker insertion in 2018. Two days before the pacemaker was placed, he underwent an aortic valve replacement. Additionally, he experiences heart failure with preserved ejection fraction for which he takes a diuretic (Lasix), along with lisinopril and hydralazine. He reports seeing a clinic assistant regularly to monitor his pacemaker function. The patient has a history of osteoarthritis, particularly affecting his knees, with a left knee replacement in 2022. He reports intermittent sinus headaches linked to allergies, more prevalent when outdoors. He has had a transient ischemic attack approximately four years ago and experiences gastroesophageal reflux managed with lifestyle adjustments. His cholesterol is managed with atorvastatin. The patient reports persistent insomnia, exacerbated by a smaller sleeping space, and notes improvement in sleep when shifting to a larger area. He has been on and off trazodone for sleep but prefers not to use it due to post-medication grogginess. Venous insufficiency in his legs leads to occasional swelling, which is managed by compression stockings and weight management efforts. He has shed approximately 4 to 5 pounds recently through dietary changes, checking his weight every morning to monitor heart failure-related fluid retention. Surgical interventions besides the pacemaker and aortic valve replacement include a left knee replacement. He has not undergone surgery for diverticulitis because symptom control has been effective through lifestyle adaptations. The patient has no history of alcohol or tobacco use, and he actively participates in community activities at a senior center. Medical History: - Essential Hypertension - Heart Block and Atrial Fibrillation with Pacemaker - Heart Failure with Preserved Ejection Fraction - Osteoarthritis - History of Transient Ischemic Attack - High Cholesterol - Gastroesophageal Reflux Disease - Diverticulitis - Insomnia - Allergic Rhinitis - Varus Deformity of the Knee - Sinus Headache Surgical History: - Pacemaker insertion (2018) - Aortic valve replacement (2018) - Left knee replacement (2022) Medications: - Amlodipine for hypertension - Aspirin for coronary artery disease - Atorvastatin for cholesterol management - Carvedilol 25 mg for hypertension - Celecoxib for osteoarthritis - Lasix 20 mg for heart failure - Hydralazine 25 mg for hypertension and heart failure - Lisinopril 20 mg for heart failure Social: - Active in the community as a member of the [employer] board - Engages in regular activity and participation in social engagements - Managed recent weight loss through diet modification - No alcohol consumption or tobacco use [facility] Medical History (Updated 04/08/25 @ 10:30 by Raoul Huang MD) Basal cell carcinoma Bruises easily Diverticulitis GERD (gastroesophageal reflux disease) TIA (transient ischemic attack) Osteoarthritis Osteoarthritis of left knee Pseudoaneurysm Essential hypertension Normally functioning cardiac pacemaker present Atherosclerotic cardiovascular disease Chronic heart failure with preserved ejection fraction Surgical History (Updated 04/08/25 @ 10:30 by Raoul Huang MD) History of total left knee replacement (04/17/23) Hx of tonsillectomy History of surgery History of esophagogastroduodenoscopy (EGD) H/O colonoscopy (~12/04/14) History of permanent cardiac pacemaker placement (~02/2019) History of cardiac catheterization (~01/30/18) Status post transcatheter aortic valve replacement (TAVR) using bioprosthesis Family History Father CVD (cardiovascular disease) Mother No problems noted. Social History Household Members: Spouse Housing: House Are you a primary urgent care to a significant other at home: No Do you presently have visiting nurse or other home services: No Patient Tobacco Use Status: Never used Tobacco e-Cigarette/Vaping Use: Never Used Second Hand Smoke Exposure: No Advance Directives Date on File: 04/17/23 service: No Current occupational status: retired Current occupation: rt handed Questionnaire PHQ-9 Over the last 2 weeks, how often have you been bothered by any of the following problems? 1. Little interest or pleasure in doing things: not at all 2. Feeling down, depressed, or hopeless: not at all 3. Trouble falling or staying asleep, or sleeping too much: not at all 4. Feeling tired or having little energy: not at all 5. Poor appetite or overeating: not at all 6. Feeling bad about yourself - or that you are a failure or have let yourself or your family down: not at all 7. Trouble concentrating on things, such as reading the newspaper or watching television: not at all 8. Moving or speaking so slowly that other people could have noticed. Or the opposite - being so fidgety or restless that you have been moving around a lot more than usual: not at all 9. Thoughts that you would be better off or of hurting yourself in some way: not at all Total score: 0 Depression Screening Interpretation: Negative Depression Screening Done: Yes 42242 - PHQ-9 Billing: Yes Source: Developed by Drs. Luisito Peralta, Michelle Martino, Corey Hurley and colleagues, with an educational rosi from [employer]. Thrive Questionnaire Date Thrive assessed: 04/18/23 I am a: Patient What is your living situation today?: I have a steady place to live Within the past 12 months, did the food you bought not last and you didn't have the money to get more?: Never true Within the past 12 months, did you worry whether your food would run out before you got money to buy more?: Never true Do you have trouble paying for medicines?: No Do you have trouble getting transportation to medical appointments?: No Do you have trouble paying your heating and electricity bill?: No Do you have trouble taking care of your child, family member or friend?: No Do you have trouble with day-to-day activities such as bathing, preparing meals, shopping, managing finances, etc.?: No Are you currently unemployed and looking for a job?: No Are you interested in more education?: No THRIVE Score: 0 AUDIT C Alcohol Use Questionnaire (AUDIT-C) 1. How often do you have a drink containing alcohol?: Never 3. How often do you have six or more drinks on one occasion?: Never Total Score: 0 Score Reviewed/Action Taken: Yes OREN-7 AMB Questionnaire OREN-7 Date OREN - 7 assessed: 04/08/25 Feeling nervous, anxious, or on edge: 0 = Not at all Not being able to stop or control worryin = Not at all Worrying too much about different things: 0 = Not at all Trouble relaxin = Not at all Being so restless that it is hard to sit still: 0 = Not at all Becoming easily annoyed or irritable: 0 = Not at all Feeling afraid as if something awful might happen: 0 = Not at all Total OREN-7 score (0-4 normal; 5-9 mild; 10-14 moderate; 15-21 severe): 0 Source: Developed by Drs. Luisito Peralta, Michelle Martino, Corey Hurley and colleagues, with an educational rosi from [employer]. OREN-7 Assessment Billing OREN-7 Assessment Tool: OREN-7 Assessment 15291 Review of Systems Const Details: - Cardiovascular: Denies chest pain, palpitations, or syncope - Respiratory: Denies cough, sputum production, or dyspnea - Gastrointestinal: Denies nausea, vomiting, or abdominal pain; reports alternating constipation and diarrhea - Musculoskeletal: Reports right knee pain, denies issues with other joints; has undergone left knee replacement - Neurological: Reports sinus headaches, denies dizziness, stroke symptoms, or memory problems - Psychiatric: Denies depression or anxiety, reports issues with insomnia - Dermatological: Denies changes in mole appearance or sensitivity - Hematological/Lymphatic: Denies bruising or uncontrolled bleeding All systems reviewed & are unremarkable except as noted in HPI and below Physical exam (Primary Care) Vital Signs: Last Vital Signs Temp 97.6 F 04/08/25 10:02 Pulse 75 04/08/25 10:02 Resp 18 04/08/25 10:02 BP 128/58 L 04/08/25 10:02 Pulse Ox 97 04/08/25 10:02 Oxygen Delivery Method Room Air 04/08/25 10:02 BMI result Body Mass Index 25.1 Tobacco/Smoking Status: Tobacco use Status Tobacco use date assessed 04/08/25 04/08/25 09:59 Patient Tobacco Use Status Never used Tobacco 04/08/25 09:59 e-Cigarette/Vaping Use Never Used 04/08/25 09:59 Depression Screening Interpretation: Negative Thrive Assessment: Date of Thrive Assessment Date Thrive assessed 04/18/23 04/08/25 09:59 ACP: DNR/DNI - is DPOA Advance Care Planning discussion: Exists, not on file Date of discussion: 04/08/25 Forms completed: Health Care Proxy ( is healthcare proxy) and MOLST Time spent: 16-45 minutes Actual minutes spent: 30 Const Other: General: +Alert and oriented, Well nourished, No acute distress. Eye: Pupils are equal, round and reactive to light, Intact accommodation, Extraocular movements are intact, Normal conjunctiva, Vision unchanged. HENT: Normocephalic, Atraumatic, Tympanic membranes are clear, Hearing aids in both ears, Oral mucosa is moist, No pharyngeal erythema, Ear canals patent. Respiratory: Lungs CTA bilaterally, No wheeze, Respirations are non-labored. Cardiovascular: Regular rate, Regular rhythm, S1 auscultated, S2 auscultated, No murmur, Good pulses equal in all extremities, Normal peripheral perfusion, 1+ edema in both legs. Gastrointestinal: Soft, Non-tender, Non-distended, Normal bowel sounds, No organomegaly. Musculoskeletal: Normal range of motion, Normal strength, No tenderness, No swelling, No deformity, Normal gait, Left knee with history of replacement and occasional swelling. Integumentary: Warm, Dry, [place], Intact, Black lesion on the right cheek, Peeling skin on arms, Easy bruising on left upper arm. Neurologic: Alert, Oriented, Normal sensory, Normal motor function, No focal defects, Cranial Nerves II-XII are grossly intact, Normal deep tendon reflexes. Psychiatric: Cooperative, Appropriate mood & affect, Normal judgment, No depression or anxiety reported. Coding Level of Care Code New Pt Level 4 (45611) Complex EM visit Add On G2211 Diagnoses Chronic heart failure with preserved ejection fraction I50.32 Essential hypertension I10 Status post transcatheter aortic valve replacement (TAVR) using bioprosthesis Z95.3 Heart block I45.9 Pacemaker Z95.0 Additional Codes OREN-7 Assessment Billing - OREN-7 Assessment Tool: OREN-7 Assessment 28714 ([id number]) PHQ-9 - 74119 - PHQ-9 Billing: Yes ([id number]) Vital Signs *Quality* - Advance Care Planning discussion: Exists, not on file ([id number]) Vital Signs *Quality* - Time spent: 16-45 minutes ([id number]) Assessment & Plan Assessment & Plan (1) Chronic heart failure with preserved ejection fraction: Comment: Currently being followed by Cardiology and managed with Lasix 20 mg daily Echo reviewed EF of 55-60 with grade 2 diastolic dysfunction and elevated filling pressures Currently on lisinopril and Coreg would recommend addition of spironolactone or Jardiance however we will defer to Cardiology Code(s): I50.32 - Chronic diastolic (congestive) heart failure Category: Medical Plan: Continue Lasix 20 mg daily Continue management by Cardiology (2) Essential hypertension: Comment: Well controlled on home regimen of Coreg, lisinopril Reports pressures at home between 110-120 Code(s): I10 - Essential (primary) hypertension Category: Medical Plan: Continue Coreg & lisinopril (3) Status post transcatheter aortic valve replacement (TAVR) using bioprosthesis: Comment: Completed in 2019 Code(s): Z95.3 - Presence of xenogenic heart valve Category: Surgical (4) Heart block: Comment: Pacemaker placed in 2019 after suffering from heart block Code(s): I45.9 - Conduction disorder, unspecified Category: Medical Plan: Continue follow-up with Cardiology (5) Pacemaker: Comment: Pacemaker placed in 2019 after suffering from heart block Code(s): Z95.0 - Presence of cardiac pacemaker Category: Medical Plan: Continue follow-up with Cardiology Plan 1. Essential Hypertension - Blood pressure stable under medication; continue current regimen of amlodipine and carvedilol. - Reinforce home blood pressure monitoring. 2. Heart Block with Pacemaker - Continue regular follow-ups with the clinic assistant to oversee pacemaker function. 3. Aortic Valve Replacement - No concerns noted; follow cardiology recommendations. 4. Heart Failure with Preserved Ejection Fraction - Weight monitoring every morning advised to monitor fluid levels. - Continue furosemide, hydralazine, and lisinopril; review dosages if weight gain occurs. 5. Osteoarthritis - Pain management with bsvq-biy-[id number] NSAIDs continued, recognize need for knee fluid drainage. 6. Transient Ischemic Attack - No recent episodes reported; continue preventative measures. 7. High Cholesterol - Continue atorvastatin as current management. 8. Gastroesophageal Reflux Disease - Lifestyle modifications to manage symptoms, continue dietary vigilance. 9. Insomnia - Prefer non-pharmacologic interventions; trazodone use discouraged. 10. Sinus Headache - Allergies noted to trigger, limit exposure when possible, consider antihistamines if needed. 11. Allergic Rhinitis - Management through avoidance of known allergens, potential antihistamine use. During our consultation, we discussed the current management level for the patient's essential hypertension, heart block with pacemaker, and aortic valve replacement, which all appear stable under existing treatment plans. For his heart failure with preserved ejection fraction, I emphasized the importance of home weight monitoring to anticipate fluctuations indicative of fluid retention. Discussed osteoarthritis and the potential necessity for additional procedures like knee draining if symptoms persist. Managed transient ischemic attack history through aspirin therapy adherence. Notably, insomnia improvements were discussed using non-pharmacologic methods over trazodone. Maintaining regular check-ins with specialists for cardiology-related issues remains a simmons focus for ongoing care. Orders: Orders TSH reflex Free T4 Today I10 - Essential (primary) hypertension, I45.9 - Conduction disorder, unspecified, I50.32 - Chronic diastolic (congestive) heart failure, Z95.0 - Presence of cardiac pacemaker Hemoglobin A1c Today I10 - Essential (primary) hypertension, I45.9 - Conduction disorder, unspecified, I50.32 - Chronic diastolic (congestive) heart failure, Z95.0 - Presence of cardiac pacemaker Comprehensive Met. Panel Today I10 - Essential (primary) hypertension, I45.9 - Conduction disorder, unspecified, I50.32 - Chronic diastolic (congestive) heart failure, Z95.0 - Presence of cardiac pacemaker Complete Blood Count Auto Diff Today I10 - Essential (primary) hypertension, I45.9 - Conduction disorder, unspecified, I50.32 - Chronic diastolic (congestive) heart failure, Z95.0 - Presence of cardiac pacemaker Vitamin D 25-OH Total Today I10 - Essential (primary) hypertension, I45.9 - Conduction disorder, unspecified, I50.32 - Chronic diastolic (congestive) heart failure, Z95.0 - Presence of cardiac pacemaker Lipid Panel Today I10 - Essential (primary) hypertension, I45.9 - Conduction disorder, unspecified, I50.32 - Chronic diastolic (congestive) heart failure, Z95.0 - Presence of cardiac pacemaker Patient Instructions: - Continue taking current medications as prescribed. - Monitor your blood pressure and weight daily and document the readings. - Follow diet modifications for weight control and reflux management. - Avoid allergens to manage sinus headaches and rhinitis. - Stay active and involved socially to maintain wellness. - Schedule regular check-ups with your clinic assistant and follow their recommendations. - Contact the clinic if experiencing new or worsening symptoms.
[2025-04-08 10:02] VITALS: BP 128/58; PULSE 75; RESP 18; TEMP 36.4; O2SAT 97; BMI 25.1
--- OUTSIDE RECORDS SUMMARY | 2025-04-08 10:38 | XMS_ITS | Patient Health Record ---
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 Name Role Phone Epi (RETIRED) Fred ADEN Primary Care Provider Unavailable Luisito Cintron Unavailable [phone] Allergies Allergen (clinical drug ingredient) Drug/Non Drug [...] Status Risk Notes Problem Colon cancer screening (449576520) Colon cancer screening (V76.51) Active confirmed Problem Gastroesophageal reflux disease (438219879) GERD (gastroesopha geal reflux disease) (530.81) Active confirmed Plan Of Treatment Future Test Test Name Order Date COLONOSCOPY 06/30/2014 Insurance Providers Payer Name Payer Address Payer Phone Subscriber Number Group Number Insured Name Patient Relationship to Insured Coverage Start Date Coverage End Date MEDICARE OF [place] [address] [place] [address] [id number] SYED SANTANA Self - patient is the insured [employer] CLAIMS [address] [place] [address] [id number] SYED SANTANA Self - patient is the insured Medical (General) History Medical History History ICD Code GERD--EGD 01/11/2011--small HH, no esoph agitis nor Mcnamara's hypertension hyperlipidemia enlarged prostate Screening colonoscopy in 2004--neg. except for diverticulosis and internal hemorrhoids; negative screening sigmoidoscopy in 1998 Denies NM,DM,CVA,Lung disease,renal dise ase Hx of diverticulitis in the Duodenal ulcer in the Surgical History Surgery Date(Month/Year) tonsillectomy
--- OUTSIDE RECORDS SUMMARY | 2025-04-08 10:39 | XMS_ITS | Patient Health Record ---
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 Name Role Phone Fred Chowdary MD Primary Care Provider Sal Mckenzie Unavailable [phone] Allergies Allergen (clinical drug ingredient) Drug/Non Drug [...] W/U Status Risk Notes Problem Tinea unguium (724281569) Tinea unguium (B35.1) Active confirmed Problem Bilateral atherosclerosis of arteries of lower limbs (disorder) (95196168891815280 ) Unspecified atherosclerosis of [place] arteries of extremities, bilateral legs (I70.203) Active confirmed Problem Localized, primary osteoarthritis of the ankle and/or foot (648626705) Primary osteoarthritis, right ankle and foot (M19.071) Active confirmed Problem Acquired hammer toe of right foot (7397743200827063) Other hammer toe(s) (acquired), right foot (M20.41) Active confirmed Plan Of Treatment Pending Test Test Name Order Date X ray : Foot, right 3V 10/18/2017 X ray : Foot, right 3V 05/05/2020 [id number] NAIL, 6 OR MORE 10/18/2017 04616-YYOFEVI NAIL, 6 OR MORE 05/01/2011 08792-VWIOBDB NAIL, 6 OR MORE 07/19/2011 08700-LYRJKAC NAIL, 6 OR MORE 01/25/2012 34237-DIEXFLQ NAIL, 6 OR MORE 04/22/2012 80276-ZYBKJNY NAIL, 6 OR MORE 07/22/2012 92716-PDTVUVK NAIL, 6 OR MORE 10/21/2012 24783-RVCBDTD NAIL, 6 OR MORE 04/03/2013 43227-MCDNTFQ NAIL, 6 OR MORE 05/29/2013 07480-FMHKNUQ NAIL, 6 OR MORE 08/25/2013 85967-UECDASH NAIL, 6 OR MORE 11/26/2013 74227-OMXPRNB NAIL, 6 OR MORE 03/04/2014 31196-FIJQOBY NAIL, 6 OR MORE 06/03/2014 86416-HKPZNSA NAIL, 1-5 05/26/2015 75476-OKQDUVN NAIL, 1-5 11/11/2015 06493-WJVOPKV NAIL, -03/15/2016 12954-GIDSMJJ NAIL, 08-1709/27/2016 92367-AIHLKLV NAIL, 08-1703/28/2017 78285-Rxtr Destruction, 08-2603/28/2017 55816-Wsqb Destruction, 08-2610/18/2017 97688-Coqe Destruction, 08-2604/09/2014 40917-Fmjd Destruction, 08-2609/27/2016 69773-Fiur Destruction, 08-2603/15/2016 63332-Vsfv Destruction, 08-2611/11/2015 40641-Qppz Destruction, 08-2606/03/2014 39195-Jawm Destruction, 08-2605/26/2015 12556-Ofdp Destruction, 08-2603/04/2014 39990-Eofa Destruction, 08-2611/26/2013 53395-Jjkb Destruction, 08-2608/25/2013 68286-Mezc Destruction, 08-2605/29/2013 35837-Jvmp Destruction, 08-2604/03/2013 78420-Rafa Destruction, 08-2610/21/2012 71261-Boij Destruction, 08-2607/22/2012 24675-Kfik Destruction, 08-2604/22/2012 01675-Tpua Destruction, 08-2601/25/2012 95860-Dfbs Destruction, 08-2607/19/2011 41996-Pnqg Destruction, 08-2605/01/2011 74943, J0702- INJECT or DRAIN, JOINT/BUR SA 11/12/2017 28337-KVPQ SKIN LESIONS, 2 TO 4 02/09/20 22 , Z6982-FXGUU/INJECT, JOINT/BURSA 0 11/12/2017 57092, F8319-FSAZI/INJECT, JOINT/BURSA 0 05/05/2020 58934, J0702- Neuroma/Injection 05/29/20 13 92369, J0702- Neuroma/Injection 03/04/20 14 20489, J0702- Neuroma/Injection 05/26/20 15 Insurance Providers Payer Name Payer Address Payer Phone Subscriber Number Group Number Insured Name Patient Relationship to Insured Coverage Start Date Coverage End Date Medicare National [employer] [address] [place] [address] [id number] Alfredito Mojica Self - patient is the insured [employer] [address] [place] [address] [id number] Alfredito Mojica Self - patient is the insured Medical (General) History Medical History History ICD Code mumps measles high blood pressure diverticulitis Arthritis Surgical History Surgery Date(Month/Year) tonsillectomy child cardiac pacemeker 03/10/2019 aortic valve replacement 03/03/2019 Hospitalization History Reason Date(Month/Year) Physical Therapy for pulled right bicep at [facility] 08/2014 [facility] Valve and [facility] er- 7 day stay 02/2019
--- OUTSIDE RECORDS SUMMARY | 2025-04-08 10:39 | XMS_ITS ---
Author Name [facility] Organization Unknown Allergies Allergen Reaction Severity Comment Documented Date Source Statu s PNEUMOCOCCAL VACCINES UNKNOWN/PATIENT AND FAMILY UNABLE TO DEFINE 07/14/2024 [facility] active PENICILLINS UNKNOWN/PATIENT AND FAMILY UNABLE TO DEFINE 07/07/2024 [facility] active Problems Problem Status Onset Date Problem Type Date of Resoluti on Source Chronic diastolic CHF (congestive heart failure) active 2024-07-14 ProblemAct [facility] QUINONES (dyspnea on exertion) active 2024-07-14 ProblemAct [facility] Pedal edema active 2024-07-14 ProblemAct [facility] Malignant neoplasm of skin active 2024-07-14 ProblemAct [facility] Dizziness active 2024-07-07 ProblemAct [facility] Hearing loss active 2024-07-07 ProblemAct [facility] Vascular disorder active 2024-07-07 ProblemAct [facility] Tinea unguium active 2024-07-14 ProblemAct [facility] T CHF NYHA class II active 2024-07-14 ProblemAct [facility] Aortic stenosis active 2024-07-14 ProblemAct [facility] Primary localized osteoarthrosis of ankle and foot active 2024-07-14 ProblemAct [facility] Diverticulosis active 2024-07-[address] TIA (transient ischemic attack) active 2024-07-07 ProblemAct [facility] HLD (hyperlipidemia) active 2024-07-14 ProblemAct [facility] Right bundle branch block (RBBB) active 2024-07-14 ProblemAct [facility] Acquired hammer toe of right foot active 2024-07-14 ProblemAct [facility] Heart murmur active 2024-07-14 ProblemAct [facility] Heart disease active 2024-07-07 ProblemAct [facility] T Unspecified atherosclerosis of [place] arteries of extremities, bilateral legs active 2024-07-14 ProblemAct [facility] Immunizations Vaccine Date Source Lot Number Status Influenza, Trivalent (FLUARI X, AFLURIA, FLULAVAL, FLUZONE) Preservative Free IM 06/27/2021 [facility] completed Covid-19 mRNA Primary Series Vaccine - Moderna 0.5 mL Full Dose 10/28/2020 [facility] completed Encounters Encounter Type Encounter Reason Primary Diagnosis Location Date Ambulatory [facility] 11/27/2024 Ambulatory [facility] 11/12/2024 Ambulatory [facility] 10/31/2024 Ambulatory [facility] 10/24/2024 Ambulatory Hearing Loss Hearing Loss [facility] 09/25/2024 Ambulatory [facility] 09/25/2024 Ambulatory Ear Fullness Ear Fullness [facility] 07/15/2024 Care Team Organization Name Specialty Phone Email Start Date End Da te [facility] 07/18/2024 12/29/2024 [facility] GUILLERMINA NATH Primary Care 07/15/2024 [facility] 06/10/2024
--- OUTSIDE RECORDS SUMMARY | 2025-04-08 10:39 | XMS_ITS | Clinical Summary ---
Author Organization [facility] Address [address] [place] [address] Care Team Providers Care Release Of Information Specialist Name Role Phone Fred Chowdary MD Primary Care Provider [phone] Allergies Active Allergy Reactions Criticality Noted Date [...] 07/14/2024 Tinea unguium 07/14/2024 Unspecified atherosclerosis of [place] arteries of extremities, bilateral legs 07/14/2024 TIA [...] Care Team (Late st Contact Info) Description 04/27/2025 9:00 AM EDT Office Visit [facility] [address] [phone] Conor Contreras MD [address] [place] [address] [id number] 06/03/2025 11:00 AM EDT Office Visit [facility] [address] [phone] Crystal Conley Au.D [address] [place], [place] [id number] Health Maintenance Due Date Last Done Comments [...] topic Insurance MEDICARE PART A & B [facility] Care Teams Release Of Information Specialist Relationship Specialty Start Date End Date Fred Chowdary MD [address] [place] [address] [place] [address] PCP - General Internal Medicine 07/15/24
== END 2025-04-08 10:34 | disposition home or self-care (01) ==
LOC: HO.HMCHD 09:56
PROVIDERS: PCP Student in an Organized Health Care Education/Training Program; Visit Provider Student in an Organized Health Care Education/Training Program
DX: I50.32 Chronic diastolic (congestive) heart failure (principal); I10 Essential (primary) hypertension; Z95.3 Presence of xenogenic heart valve; I45.9 Conduction disorder, unspecified; Z95.0 Presence of cardiac pacemaker; Z00.00 Encounter for general adult medical examination without abnormal findings

== ENCOUNTER → 2025-04-08 09:55 | Outpatient (BNVA) | payer MEDICARE, SELFPAY | PROVIDERS: PCP Family Medicine; Visit Provider Student in an Organized Health Care Education/Training Program | DX: I11.0 Hypertensive heart disease with heart failure (principal); I50.32 Chronic diastolic (congestive) heart failure; I45.9 Conduction disorder, unspecified; M19.90 Unspecified osteoarthritis, unspecified site; G47.00 Insomnia, unspecified; R51.9 Headache, unspecified; J30.9 Allergic rhinitis, unspecified; Z86.73 Personal history of transient ischemic attack (TIA), and cerebral infarction without residual deficits; Z95.0 Presence of cardiac pacemaker; Z95.3 Presence of xenogenic heart valve; Z79.899 Other long term (current) drug therapy; Z13.31 Encounter for screening for depression; Z13.39 Encounter for screening examination for other mental health and behavioral disorders | CPT/HCPCS: 96127; 99202; 99497 ==

== ENCOUNTER 2025-04-23 12:25 | Outpatient (AMB) | payer MEDICARE, SELFPAY ==
[2025-04-23 12:45] VITALS: BP 110/56; PULSE 54; BMI 25.1
--- NOTE | 2025-04-23 12:45 | A.OFFVIS_ITS ---
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 Required: No Accompanied by: Spouse Allergies Penicillins (PENICILLINS) Adverse Reaction (Severe, Verified 04/08/25 09:58) GI upset / nausea & vomiting Medication List - Last Reconciled 04/23/25 by Colten Rasmussen MD amlodipine 10 mg (2 x 5 mg) PO DAILY aspirin (Stefany Low Dose Aspirin) 81 mg PO DAILY atorvastatin 10 mg PO DAILY azithromycin 1,000 mg PO carvedilol 25 mg PO BID celecoxib (Celebrex) 200 mg PO BID 30 days furosemide 20 mg PO DAILY hydralazine 25 mg PO BID lisinopril 20 mg PO BID multivitamin 1 tab PO DAILY walker Folding Front wheeled walker HPI Comments Details: Alfredito returns for follow-up regarding various issues including TAVR, chronic diastolic heart failure, hypertension. He also has a permanent pacemaker. Since last seen, he states he generally feels good. No clear-cut cardiac symptoms. He is getting along fine. [facility] Medical History Basal cell carcinoma Bruises easily Diverticulitis GERD (gastroesophageal reflux disease) TIA (transient ischemic attack) Osteoarthritis Osteoarthritis of left knee Pseudoaneurysm Essential hypertension Normally functioning cardiac pacemaker present Atherosclerotic cardiovascular disease Chronic heart failure with preserved ejection fraction Surgical History History of total left knee replacement (04/17/23) Hx of tonsillectomy History of surgery History of esophagogastroduodenoscopy (EGD) H/O colonoscopy (~12/04/14) History of permanent cardiac pacemaker placement (~02/2019) History of cardiac catheterization (~01/30/18) Status post transcatheter aortic valve replacement (TAVR) using bioprosthesis Family History Father CVD (cardiovascular disease) Mother No problems noted. Social History Household Members: Spouse Housing: House Are you a primary dialysis patient care technician to a significant other at home: No Do you presently have visiting nurse or other home services: No Patient Tobacco Use Status: Never used Tobacco e-Cigarette/Vaping Use: Never Used Second Hand Smoke Exposure: No Advance Directives Date on File: 04/17/23 service: No Current occupational status: retired Current occupation: rt handed Review of Systems Const Denies chills, Denies fatigue, Denies fever(s), Denies frequent falls, Denies weakness, Denies weight gain and Denies weight loss ENT Denies dizziness Card Denies chest pain, Denies leg edema, Denies lightheadedness, Denies palpitations, Denies dyspnea and Denies dyspnea on exertion Resp Denies cough, Denies dyspnea and Denies dyspnea on exertion GI Denies hematochezia Musc Denies abnormal gait, Denies muscle weakness, Denies numbness, Denies radiating pain into limb and Denies tingling Neuro Denies abnormal gait, Denies dizziness, Denies frequent falls, Denies numbness, Denies tingling and Denies weakness Endo Denies fatigue and Denies palpitations Physical Exam Vital Signs: Last Vital Signs Pulse 54 04/23/25 12:45 BP 110/56 L 04/23/25 12:45 BMI result Body Mass Index 25.1 Const General: comfortable and no acute distress Orientation/consciousness: patient oriented x3 HEENT Other: Unremarkable Head: Yes normal to inspection Neck Neck: Yes normal visual inspection Chest Chest palpation & inspection: normal inspection of the chest Resp Auscultation: clear to auscultation bilaterally Cardio Palpation: normal PMI Heart sounds: S1 normal heart sound present, S2 normal heart sound present, no gallops, Murmur heart sound present systolic I/ and no rubs GI Palpation (GI): Soft to palpation Back/Spine/Pelvis Other: unremarkable Skin General skin exam: no rashes or lesions noted Neuro General: patient oriented x3 Extrem General: Yes normal to inspection Psych Mental Status: mental status grossly normal Office Procedures EKG Details: EKGs shows atrial sensed, ventricular paced rhythm at 54/Min. 78597-Okovckujvcumfxfwj, Complete Assessment & Plan Assessment & Plan (1) Status post transcatheter aortic valve replacement (TAVR) using bioprosthesis: Comment: Completed in 2019 Code(s): Z95.3 - Presence of xenogenic heart valve Category: Surgical Plan: Continue aspirin. Normally functioning bioprosthetic aortic valve on echocardiogram. Infective endocarditis prophylaxis per protocol. (2) Chronic heart failure with preserved ejection fraction: Code(s): I50.32 - Chronic diastolic (congestive) heart failure Category: Medical Plan: Remains on diuretics. Can add Farxiga. (3) Atherosclerotic cardiovascular disease: Code(s): I25.10 - Atherosclerotic heart disease of [place] coronary artery without angina pectoris Category: Medical Plan: Cardiac catheterization in the past with mild disease diffusely. No hemodynamically significant lesions. Continue aspirin and statins. LDL, 70s to 90s. (4) Essential hypertension: Comment: Well controlled on home regimen of Coreg, lisinopril Reports pressures at home between 110-120 Code(s): I10 - Essential (primary) hypertension Category: Medical Plan: Stable. (5) Normally functioning cardiac pacemaker present: Code(s): Z95.0 - Presence of cardiac pacemaker Category: Medical Plan: Follow remotely. Medications: New dapagliflozin propanediol (Farxiga) 10 mg PO DAILY 90 tabs 1RF I50.32 - Chronic diastolic (congestive) heart failure Coding Level of Care Code Est Pt Level 4 (72992) Complex EM visit Add On G2211 Diagnoses Status post transcatheter aortic valve replacement (TAVR) using bioprosthesis Z95.3 Chronic heart failure with preserved ejection fraction I50.32 Atherosclerotic cardiovascular disease I25.10 Essential hypertension I10 Normally functioning cardiac pacemaker present Z95.0 CPT Codes EKG - CPT: 48218-Dlduofmhzracvtkfo, Complete ([id number])
--- OUTSIDE RECORDS SUMMARY | 2025-04-23 16:40 | XMS_ITS | Clinical Summary ---
Author Organization [facility] Address [address] [place] [address] Care Team Providers Care Tufting Supervisor Name Role Phone Fred Chowdary MD Primary Care Provider [phone] Allergies Active Allergy Reactions Criticality Noted Date [...] unguium 07/14/2024 Unspecified atherosclerosis of [place] arteries of extremities, bilateral legs 07/14/2024 TIA [...] Description 04/27/2025 9:00 AM EDT Office Visit [facility] [address] [phone] Conor Contreras MD [address] [place] [id number] 06/03/2025 11:00 AM EDT Clinical Support [facility] [address] [phone] Crystal Conley Au.D [address] [place], [place] [phone] Health Maintenance Due Date Last Done Comments Advance Care Planning 1940 DTaP/Tdap/Td Vaccines (1 - Tdap) 1957 Pneumococcal [...] Insurance MEDICARE PART A & B [facility] Care Teams Tufting Supervisor Relationship Specialty Start Date End Date Fred Chowdary MD [address] [place] [address] [place] [address] PCP - General Internal Medicine 07/15/24
--- OUTSIDE RECORDS SUMMARY | 2025-04-23 16:40 | XMS_ITS | Patient Health Record ---
Author [facility] Address [address] [address] Care Team Providers Care Cover Maker Name Role Phone Fred Chowdary MD Primary Care Provider Sal Mckenzie Unavailable [phone] Allergies Allergen (clinical drug ingredient) Drug/Non Drug [...] W/U Status Risk Notes Problem Tinea unguium (404796844) Tinea unguium (B35.1) Active confirmed Problem Bilateral atherosclerosis of arteries of lower limbs (disorder) (50480221749592256 ) Unspecified atherosclerosis of [place] arteries of extremities, bilateral legs (I70.203) Active confirmed Problem Localized, primary osteoarthritis of the ankle and/or foot (587840298) Primary osteoarthritis, right ankle and foot (M19.071) Active confirmed Problem Acquired hammer toe of right foot (4306653680320364) Other hammer toe(s) (acquired), right foot (M20.41) Active confirmed Plan Of Treatment Pending Test Test Name Order Date X ray : Foot, right 3V 10/18/2017 X ray : Foot, right 3V 05/05/2020 27599-[id number] NAIL, 6 OR MORE 10/18/2017 51882-RWPVJMV NAIL, 6 OR MORE 05/01/2011 44801-XARQQWS NAIL, 6 OR MORE 07/19/2011 26206-TPIGBUX NAIL, 6 OR MORE 01/25/2012 98054-LUSUJZG NAIL, 6 OR MORE 04/22/2012 63691-YZZXQZZ NAIL, 6 OR MORE 07/22/2012 44097-OZKFFDP NAIL, 6 OR MORE 10/21/2012 94450-KELXQKF NAIL, 6 OR MORE 04/03/2013 06109-LZZXIGL NAIL, 6 OR MORE 05/29/2013 09818-CNQYMCA NAIL, 6 OR MORE 08/25/2013 28140-TMCFYNW NAIL, 6 OR MORE 11/26/2013 56639-XLSVSVL NAIL, 6 OR MORE 03/04/2014 89885-MOHKSNP NAIL, 6 OR MORE 06/03/2014 49126-WPPEXYH NAIL, 1-5 05/26/2015 28533-RHTIBPX NAIL, 1-5 11/11/2015 51081-OQXUVJR NAIL, -03/15/2016 12287-VKCITEA NAIL, 08-1709/27/2016 02944-KPTMCCA NAIL, 08-1703/28/2017 30557-Enyj Destruction, 08-2603/28/2017 69912-Sltz Destruction, 08-2610/18/2017 92548-Bnhq Destruction, 08-2604/09/2014 62147-Losz Destruction, 08-2609/27/2016 85801-Gyna Destruction, 08-2603/15/2016 71597-Ksxj Destruction, 08-2611/11/2015 28446-Yjku Destruction, 08-2606/03/2014 32294-Kogx Destruction, 08-2605/26/2015 36769-Zhhk Destruction, 08-2603/04/2014 69642-Esdv Destruction, 08-2611/26/2013 82202-Ccmj Destruction, 08-2608/25/2013 10803-Dzhg Destruction, 08-2605/29/2013 43134-Ogav Destruction, 08-2604/03/2013 87191-Rrsf Destruction, 08-2610/21/2012 21072-Sciy Destruction, 08-2607/22/2012 91788-Bazs Destruction, 08-2604/22/2012 37931-Pnup Destruction, 08-2601/25/2012 32033-Tqtz Destruction, 08-2607/19/2011 17494-Dnlu Destruction, 08-2605/01/2011 14345, J0702- INJECT or DRAIN, JOINT/BUR SA 11/12/2017 81323-HIMK SKIN LESIONS, 2 TO 4 02/09/20 22 , R3874-JEHCN/INJECT, JOINT/BURSA 0 11/12/2017 22668, W9362-SMCZT/INJECT, JOINT/BURSA 0 05/05/2020 34359, J0702- Neuroma/Injection 05/29/20 13 33815, J0702- Neuroma/Injection 03/04/20 14 39604, J0702- Neuroma/Injection 05/26/20 15 Insurance Providers Payer Name Payer Address Payer Phone Subscriber Number Group Number Insured Name Patient Relationship to Insured Coverage Start Date Coverage End Date Medicare National [employer] [address] [place] [address] [id number] Alfredito Mojica Self - patient is the insured [employer] [address] [place] [address] [phone] [id number] Alfredito Mojica Self - patient is the insured Medical (General) History Medical History History ICD Code mumps measles high blood pressure diverticulitis Arthritis Surgical History Surgery Date(Month/Year) tonsillectomy child cardiac pacemeker 03/10/2019 aortic valve replacement 03/03/2019 Hospitalization History Reason Date(Month/Year) Physical Therapy for pulled right bicep at [facility] 08/2014 [facility] Valve and Pacemak er- 7 day stay 02/2019
--- OUTSIDE RECORDS SUMMARY | 2025-04-23 16:40 | XMS_ITS | Patient Health Record ---
Author Organization [facility] Address [address] [place] [address] Care Team Providers Care Custodial Worker Name Role Phone Epi (RETIRED) Fred ADEN Primary Care Provider Unavailable Luisito Cintron Unavailable [phone] Allergies Allergen (clinical drug ingredient) Drug/Non Drug [...] Status Risk Notes Problem Colon cancer screening (078582998) Colon cancer screening (V76.51) Active confirmed Problem Gastroesophageal reflux disease (338114209) GERD (gastroesopha geal reflux disease) (530.81) Active confirmed Plan Of Treatment Future Test Test Name Order Date COLONOSCOPY 06/30/2014 Insurance Providers Payer Name Payer Address Payer Phone Subscriber Number Group Number Insured Name Patient Relationship to Insured Coverage Start Date Coverage End Date MEDICARE OF [place] [address] [place] [address] [phone] [id number] YSED SANTANA Self - patient is the insured [employer] CLAIMS [address] [place] [phone] [id number] SYED SANTANA Self - patient is the insured Medical (General) History Medical History History ICD Code GERD--EGD 01/11/2011--small HH, no esoph agitis nor Mcnamara's hypertension hyperlipidemia enlarged prostate Screening colonoscopy in 2004--neg. except for diverticulosis and internal hemorrhoids; negative screening sigmoidoscopy in 1998 Denies FL,DM,CVA,Lung disease,renal dise ase Hx of diverticulitis in the Duodenal ulcer in the Surgical History Surgery Date(Month/Year) tonsillectomy
== END 2025-04-23 13:09 | disposition home or self-care (01) ==
LOC: HO.HCS 12:26
PROVIDERS: PCP Family Medicine; Visit Provider Internal Medicine
DX: Z95.3 Presence of xenogenic heart valve (principal); I50.32 Chronic diastolic (congestive) heart failure; I25.10 Atherosclerotic heart disease of native coronary artery without angina pectoris; I10 Essential (primary) hypertension; Z95.0 Presence of cardiac pacemaker
CPT/HCPCS: 93010; 99214; G2211

== ENCOUNTER → 2025-04-23 12:25 | Outpatient (BNVA) | payer MEDICARE, SELFPAY | PROVIDERS: PCP Family Medicine; Visit Provider Internal Medicine | DX: I11.0 Hypertensive heart disease with heart failure (principal); I50.32 Chronic diastolic (congestive) heart failure; I25.10 Atherosclerotic heart disease of native coronary artery without angina pectoris; Z95.3 Presence of xenogenic heart valve; Z95.0 Presence of cardiac pacemaker | CPT/HCPCS: 93005; 99212 ==

== ENCOUNTER → 2025-05-10 23:59 | Outpatient (BNV) | payer MEDICARE, SELFPAY ==
--- NOTE | 2025-05-14 13:44 | MHC.OFFVIS ---
Intake Visit Reasons: Remote device check- [employer] Allergies Penicillins (PENICILLINS) Adverse Reaction (Severe, Verified 04/08/25 09:58) GI upset / nausea & vomiting PFSH Medical History Basal cell carcinoma Bruises easily Diverticulitis GERD (gastroesophageal reflux disease) TIA (transient ischemic attack) Osteoarthritis Osteoarthritis of left knee Pseudoaneurysm Essential hypertension Normally functioning cardiac pacemaker present Atherosclerotic cardiovascular disease Chronic heart failure with preserved ejection fraction Surgical History History of total left knee replacement (04/17/23) Hx of tonsillectomy History of surgery History of esophagogastroduodenoscopy (EGD) H/O colonoscopy (~12/04/14) History of permanent cardiac pacemaker placement (~02/2019) History of cardiac catheterization (~01/30/18) Status post transcatheter aortic valve replacement (TAVR) using bioprosthesis Family History Father CVD (cardiovascular disease) Mother No problems noted. Social History Household Members: Spouse Housing: House Are you a primary child care coordinator to a significant other at home: No Do you presently have visiting nurse or other home services: No Patient Tobacco Use Status: Never used Tobacco e-Cigarette/Vaping Use: Never Used Second Hand Smoke Exposure: No Advance Directives Date on File: 04/17/23 service: No Current occupational status: retired Current occupation: rt handed Office Procedures Cardiac Device Check Cardiac Device Check Details: Date of service- 05/10/2025 ; Battery life 8 years; normal lead parameters; AP 11%; [employer] WORKER 84%; no significant arrhythmias. Overall normal device function. 90786-Khzykp Cardiac Device Interrogation, pacemaker Procedure code (CPT) selection complete Assessment & Plan Assessment & Plan (1) Pacemaker: Comment: Pacemaker placed in 2019 after suffering from heart block Code(s): Z95.0 - Presence of cardiac pacemaker Category: Medical (2) Chronic heart failure with preserved ejection fraction: Code(s): I50.32 - Chronic diastolic (congestive) heart failure Category: Medical Plan x Coding Level of Care Code Procedure Only Diagnoses Pacemaker Z95.0 Chronic heart failure with preserved ejection fraction I50.32 CPT Codes Cardiac Device Check - Cardiac Device 12: 71631-Qmgfum Cardiac Device Interrogation, pacemaker ([id number])
== END ==
PROVIDERS: PCP Family Medicine; Visit Provider Internal Medicine
DX: I50.32 Chronic diastolic (congestive) heart failure (principal); Z95.0 Presence of cardiac pacemaker
CPT/HCPCS: 93294